=== PATIENT | male | born 1975 | race African-American/Black ===

== ENCOUNTER 2016-04-28 21:50 | Inpatient (IN) | payer OTHER, BC ==
[~2016-04-28] VITALS: Ht 177.8 cm; Wt 123.0 kg
[2016-04-28] MEDS ORDERED: PROPOFOL 1000 MG/100 ML INJ 100 ML ONE (21:58)
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
[2016-04-28] MEDS ORDERED: IOHEXOL 350 MG/ML 10 ML VIAL (for RAD DIAG) IV ONE (22:20)
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
[2016-04-28 22:28] LABS: I-STAT POTASSIUM 4.1 MMOL/L (3.5-4.9)
[2016-04-28 22:29] LABS: AUTOMATED NEUTROPHIL # 2.2 TH/MM3 (1.8-7.7); BASOPHIL % 0.4 % (0.0-2.0); EOSINOPHIL # 0.3 TH/MM3 (0-0.4); EOSINOPHIL % 3.6 % (0.0-4.0); HEMATOCRIT 40.7 % (39.0-51.0); LYMPH % 60.6 % (9.0-44.0); LYMPHOCYTE # 4.8 TH/MM3 (1.0-4.8); MEAN CELL VOLUME 83.6 FL (80.0-100.0); MEAN CORPUSCULAR HEMOGLOBIN 28.2 PG (27.0-34.0); MEAN CORPUSCULAR HGB CONC 33.7 % (32.0-36.0); NEUT % 28.4 % (16.0-70.0); PLATELET COUNT 376 TH/MM3 (150-450); RED BLOOD COUNT 4.86 MIL/MM3 (4.50-5.90); RED CELL DISTRIBUTION WIDTH 14.9 % (11.6-17.2); WHITE BLOOD COUNT 7.9 TH/MM3 (4.0-11.0)
[2016-04-28 22:30] LABS: HEMO FLAGS AUTO DIFF
[2016-04-28 22:35] VITALS: O2SAT 100
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
[2016-04-28 22:45] VITALS: BP 139/87; PULSE 114; RESP 16; TEMP 98.5; O2SAT 100
[2016-04-28] MEDS ORDERED: CHLORHEXIDINE GLUCONATE 2 % 1 PACK (2 CLOTHS) TOP PRN (22:45)
[2016-04-28] MEDS ORDERED: ETOMIDATE 20 MG/10 ML VIAL ONE (22:45)
[2016-04-28] MEDS ORDERED: MISCELLANEOUS NURSING INFORMATION XX SCH (22:45)
[2016-04-28] MEDS ORDERED: ROCURONIUM INJ 50 MG/5 ML VIAL ONE (22:45)
[2016-04-28] MEDS ORDERED: SODIUM CHLORIDE 0.9% FLUSH 5 ML FLUSH IV FLUSH PRN (22:45)
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
[2016-04-28 22:46] LABS: APTT (PATIENT) 25.4 SEC (24.3-30.1); PROTHROMBIN TIME - PATIENT 10.6 SEC (9.8-11.6)
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
[2016-04-28] MEDS: PROPOFOL 1000 MG/100 ML INJ 100 ML IV SCH (23:15)
[2016-04-28] MEDS: fentaNYL DRIP 250 ML IV SCH (23:15)
[2016-04-28] MEDS: SODIUM CHLORIDE 0.9% FLUSH 5 ML FLUSH IV FLUSH SCH (23:16)
[2016-04-28] MEDS: SODIUM CHLOR 0.9% 1000 ML INJ 1,000 ML IV SCH (23:16)
[2016-04-28] MEDS: levETIRAcetam INJ 500 MG in SODIUM CHLORIDE 0.9% INJ 100 ML IV SCH (23:30)
[2016-04-28 23:37] LABS: PLATELET ESTIMATE SMEAR NORMAL (NORMAL); PLATELET MORPHOLOGY NORMAL (NORMAL); SCAN/DIFF AUTO DIFF CONFIRMED
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
[2016-04-28 23:51] LABS: BLOOD GAS CARBOXYHEMOGLOBIN 1.1 % (0-4); BLOOD GAS HCO3 21 mmol/L (22-26); BLOOD GAS METHEMOGLOBIN 1.1 % (0-2); BLOOD GAS O2 HGB SATURATION 95 % (90-100); BLOOD GAS OXYGEN CONTENT 16.9 Vol % (12.0-20.0); BLOOD GAS PCO2 41 mmHg (38-42); BLOOD GAS PO2 105 mmHg (61-120); BLOOD GAS TOTAL HGB 12.5 G/DL (12.0-16.0); TEMP CORR TO 98.6
[2016-04-28 23:53] LABS: CRITICAL VALUE NO; OXYGEN DEVICE VENTILATOR
[2016-04-28 23:54] LABS: DRAW SITE RT RADIAL; FIO2 50 %; NUMBER OF ARTERIAL PUNCTURES 1
[2016-04-28 23:55] LABS: STAT NO; ULNAR PULSE PRESENT
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
[2016-04-29] VITALS (18 sets, daily range): BP systolic 79–126; BP diastolic 51–78; PULSE 68–102; RESP 16–22; TEMP 97.8–99; O2SAT 97–100
--- NOTE | 2016-04-29 00:49 | PD.OP ---
Operative Report Date of Surgery: Apr 29, 2016 Preoperative Diagnosis: (1) Head injury Postoperative Diagnosis: (1) Head injury Procedure: Left frontal twist drill for intracranial pressure monitor placement Anesthesia: Intravenous sedation. Local anesthetic 1% Xylocaine without epinephrine Surgeon: Mitch Chavez [employer] Analyst(s): None Operation and Findings: The procedure was performed in the surgical intensive care unit. No family available to discuss findings and treatment plans. The procedures considered medically necessary on an urgent basis. Appropriate time-out procedure was performed with all personnel present and in agreement The patient was given intravenous sedation during the procedure. The head of the bed was elevated 20 with the head and neck in neutral position. Due to CT scan findings indicated major area of contusion and subarachnoid hemorrhage over the left frontoparietal region, the ICP monitor was placed on the left side. The left frontal area was shaved with clippers and sterilely prepped and draped. 1% Xylocaine with epinephrine was used for local infiltration over the small incision site which was made in the left frontal region approximately 1 cm anterior to the coronal suture in the mid pupillary line and carried sharply down to the cranium. The hand drill was used to place a single twist drill opening in the cranium and the dura was perforated with the 18-gauge spinal needle. The ICP bolt was secured to the cranium. The transducer was zeroed and placed intracranially and secured to the bolt. The patient's initial ICP was 10-12 mm water with good waveform. A sterile dressing was applied There is no significant bleeding The patient's neurologic exam remained stable following the procedure. Mitch Chavez MD Apr 29, 2016 00:49
[2016-04-29] MEDS ORDERED: NOREPINEPHRINE 4 MG/4 ML AMP ONE (00:52)
[2016-04-29] MEDS ORDERED: SODIUM CHLOR 0.9% 1000 ML INJ 2,000 ML IV ONE (01:00)
[2016-04-29] MEDS ORDERED: TERBUTALINE INJ 1 MG/ML AMP SQ PRN (01:00)
[2016-04-29 01:13] LABS: HEMATOCRIT 35.8 % (39.0-51.0); MEAN CELL VOLUME 84.2 FL (80.0-100.0); MEAN CORPUSCULAR HEMOGLOBIN 27.4 PG (27.0-34.0); MEAN CORPUSCULAR HGB CONC 32.6 % (32.0-36.0); PLATELET COUNT 282 TH/MM3 (150-450); RED BLOOD COUNT 4.25 MIL/MM3 (4.50-5.90); RED CELL DISTRIBUTION WIDTH 14.7 % (11.6-17.2); REVIEW FLAG FINAL; WHITE BLOOD COUNT 8.9 TH/MM3 (4.0-11.0)
[2016-04-29] MEDS: PROPOFOL 1000 MG/100 ML INJ 100 ML IV SCH ×7 (01:40→22:04)
[2016-04-29 01:56] LABS: ALT (GPT) 26 U/L (12-78); ANION GAP 10 MEQ/L (5-15); AST (GOT) 19 U/L (15-37); BICARBONATE 23.8 MEQ/L (21.0-32.0); BLOOD UREA NITROGEN 12 MG/DL (7-18); CHLORIDE 111 MEQ/L (98-107); GLOMERULAR FILTRATION RATE 68 ML/MIN (>89); SODIUM (NA) 145 MEQ/L (136-145)
[2016-04-29 01:59] LABS: ALKALINE PHOSPHATASE 37 U/L (45-117); TOTAL BILIRUBIN ADULT 0.4 MG/DL (0.2-1.0)
[2016-04-29] MEDS: CHLORHEXIDINE GLUCONATE 2 % 1 PACK (2 CLOTHS) TOP SCH (04:00)
[2016-04-29 06:26] LABS: AUTOMATED NEUTROPHIL # 8.1 TH/MM3 (1.8-7.7); BASOPHIL % 0.2 % (0.0-2.0); EOSINOPHIL # 0.1 TH/MM3 (0-0.4); EOSINOPHIL % 1.2 % (0.0-4.0); HEMATOCRIT 40.6 % (39.0-51.0); HEMO FLAGS DIFF FINAL; LYMPH % 14.3 % (9.0-44.0); LYMPHOCYTE # 1.5 TH/MM3 (1.0-4.8); MEAN CELL VOLUME 85.4 FL (80.0-100.0); MEAN CORPUSCULAR HEMOGLOBIN 28.1 PG (27.0-34.0); MEAN CORPUSCULAR HGB CONC 32.9 % (32.0-36.0); NEUT % 77.3 % (16.0-70.0); PLATELET COUNT 266 TH/MM3 (150-450); RED BLOOD COUNT 4.76 MIL/MM3 (4.50-5.90); RED CELL DISTRIBUTION WIDTH 14.8 % (11.6-17.2); WHITE BLOOD COUNT 10.5 TH/MM3 (4.0-11.0)
[2016-04-29] MEDS ORDERED: 3% SALINE INJ 500 ML IV ONE (06:30)
[2016-04-29] MEDS ORDERED: MIDAZOLAM HCL 5 MG/ML VIAL (1 ML) IM ONE (06:30)
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
[2016-04-29 06:43] LABS: BICARBONATE 23.9 MEQ/L (21.0-32.0); POTASSIUM 4.3 MEQ/L (3.5-5.1)
[2016-04-29] MEDS: MIDAZOLAM 100 MG/ML INJ 100 ML IV SCH ×3 (06:45→22:04)
[2016-04-29] MEDS: fentaNYL DRIP 250 ML IV SCH ×3 (06:45→22:05)
[2016-04-29] MEDS: MAGNESIUM SULFATE 1 GM PREMIX 100 ML IV SCH ×2 (06:45→08:36)
[2016-04-29] MEDS ORDERED: POTASSIUM CHLOR 40 MEQ PREMIX 100 ML IV PRN (07:00)
[2016-04-29] MEDS ORDERED: POTASSIUM PHOSPHATE MONOBASIC 500 MG TAB PO/TUBE PRN (07:00)
[2016-04-29] MEDS ORDERED: MAGNESIUM OXIDE 400 MG TAB PO PRN (07:00)
[2016-04-29] MEDS ORDERED: POTASSIUM CHLOR 20 MEQ PREMIX 100 ML IV PRN (07:00)
[2016-04-29] MEDS ORDERED: MAGNESIUM SULFATE INJ 4 GM in SODIUM CHLORIDE 0.9% INJ 92 ML IV PRN (07:00)
[2016-04-29] MEDS ORDERED: POTASSIUM PHOSPHATE MONOBASIC 500 MG TAB PO PRN (07:00)
[2016-04-29] MEDS ORDERED: MAGNESIUM SULFATE INJ 2 GM in SODIUM CHLORIDE 0.9% INJ 96 ML IV PRN (07:00)
[2016-04-29] MEDS ORDERED: RESP: ALBUTEROL 2.5 MG/IPRATROPIUM 0.5 MG NEB (PRN) NEB (07:00)
--- NOTE | 2016-04-29 07:24 | RADRPT ---
EXAM DATE/TIME: 04/29/2016 04:30 [facility] COMPARISON: CHEST SINGLE AP, April 28, 2016, 21:44. INDICATIONS : Shortness of breath. MEDICAL HISTORY : None. SURGICAL HISTORY : None. ENCOUNTER: Subsequent ACUITY: 2 days PAIN SCORE: Non-responsive. LOCATION: Bilateral chest FINDINGS: A single view of the chest demonstrates endotracheal tube in satisfactory position. NG overlies dista l stomach. Mild basilar airspace disease similar to April 28. CONCLUSION: 1. Endotracheal tube and nasogastric tube in satisfactory position. Mild basilar airspace disease. Heath Awan MD on April 29, 2016 at 7:22 Board Certified Radiologist. This report was verified electronically.
[2016-04-29] MEDS: CHLORHEXIDINE 0.12% (ORAL KIT) 15 ML CUP MT SCH ×2 (08:00→20:44)
--- NOTE | 2016-04-29 08:00 | PD.PROCEDR ---
Procedure Note Procedure DX: Traumatic Brain Injury OP: 1. Insertion Left Subclavian Central Venous Line (06988) 2. Insertion Left radial artery line (47804) Procedure: With HOB elevated, left chest prepped and draped. Left subclavian vein cannulated and wire advanced. Catheter passed over wire to 19 cm. Lumens aspirated and flushed. Dressing applied. CXR ordered, will review. Merlin test normal left hand. Let wrist supinated, prepped and draped. Left radial artery cannulated with 20 gauge needle and wire easily advanced. Cannula passed over wire to 3 cm. Good waveform observed. Dressing applied. Circulation to left hand intact after procedure. Gigi Han MD Apr 29, 2016 08:00
[2016-04-29] MEDS: SODIUM CHLOR 0.9% 1000 ML INJ 1,000 ML IV SCH (08:32)
[2016-04-29] MEDS: PANTOPRAZOLE SODIUM 40 MG VIAL IV SCH (08:36)
[2016-04-29] MEDS: SODIUM CHLORIDE 0.9% FLUSH 5 ML FLUSH IV FLUSH SCH ×2 (08:36→20:44)
[2016-04-29] MEDS: DOCUSATE SODIUM 50 MG/SENNA 8.6 MG TAB PO SCH ×2 (08:36→20:43)
[2016-04-29] MEDS: levETIRAcetam INJ 500 MG in SODIUM CHLORIDE 0.9% INJ 100 ML IV SCH ×2 (08:36→20:44)
[2016-04-29] MEDS: LACTULOSE SYRUP 20 GM/30 ML CUP PO SCH (08:36)
--- NOTE | 2016-04-29 08:39 | RADRPT ---
EXAM DATE/TIME: 04/29/2016 07:52 [facility] COMPARISON: CHEST SINGLE AP, April 29, 2016, 4:30. INDICATIONS : Central line placement MEDICAL HISTORY : None. SURGICAL HISTORY : None. ENCOUNTER: Initial ACUITY: 1 day PAIN SCORE: Non-responsive. LOCATION: Bilateral chest FINDINGS: Left central line tip in superior vena cava. Endotracheal tube in satisfactory position. NG overlies distal stomach. Mild basilar airspace disease similar to exam from earlier today. CONCLUSION: 1. Placement of left central line in superior vena cava without pneumothorax. Heath Awan MD on April 29, 2016 at 8:36 Board Certified Radiologist. This report was verified electronically.
[2016-04-29 08:59] LABS: BLOOD GAS BASE EXCESS -0.5 mmol/L (-2-2); BLOOD GAS HCO3 24 mmol/L (22-26); BLOOD GAS METHEMOGLOBIN 1.1 % (0-2); BLOOD GAS O2 HGB SATURATION 96 % (90-100); BLOOD GAS OXYGEN CONTENT 15.4 Vol % (12.0-20.0); BLOOD GAS PCO2 39 mmHg (38-42); BLOOD GAS PO2 97 mmHg (61-120); BLOOD GAS TOTAL HGB 11.4 G/DL (12.0-16.0); CRITICAL VALUE NO; OXYGEN DEVICE VENTILATOR; TEMP CORR TO 98.6
[2016-04-29 09:00] LABS: DRAW SITE ART LINE; FIO2 30 %; STAT YES; ULNAR PULSE PRESENT; VENT SETTINGS PRVC 16/550/5+/1.0
[2016-04-29] MEDS ORDERED: LACTULOSE SYRUP 20 GM/30 ML CUP PO SCH (09:00)
--- NOTE | 2016-04-29 10:29 | RADRPT ---
EXAM DATE/TIME: 04/29/2016 10:09 [facility] COMPARISON: CT BRAIN W/O CONTRAST, April 28, 2016, 22:14. INDICATIONS : Follow-up for intracranial hemorrhage. RADIATION DOSE: 65.53 CTDIvol (mGy) MEDICAL HISTORY : None SURGICAL HISTORY : Craniotomy. ENCOUNTER: Initial ACUITY: 1 day PAIN SCALE: Non-responsive LOCATION: cranial TECHNIQUE: Multiple contiguous axial images were obtained of the head. Using automated exposure control and adj ustment of the mA and/or kV according to patient size, radiation dose was kept as low as reasonably a chievable to obtain optimal diagnostic quality images. FINDINGS: Today's exam is compared to the prior study. There is a pressure monitor in the left frontal lobe. Th e ventricles remain normal in size and midline in position. There continue to be multiple hemorrhagic contusions involving the frontal lobes and left temporal lobe without significant change compared to the earlier exam. There is stable subarachnoid hemorrhage predominantly on the left side. No signifi cant mass effect or midline shift is demonstrated. The posterior fossa stable and unremarkable. There is a stable punctate hemorrhagic contusion on the right cerebral vertex. CONCLUSION: 1. Left-sided pressure monitor in place. 2. No significant change compared to the prior examination. Sean Vu MD on April 29, 2016 at 10:25 Board Certified Radiologist. This report was verified electronically.
[2016-04-29] MEDS: RESP: ALBUTEROL 2.5 MG/IPRATROPIUM 0.5 MG NEB (SCH) NEB ×3 (10:48→20:38)
[2016-04-29 12:03] LABS: BLOOD GAS BASE EXCESS -0.4 mmol/L (-2-2); BLOOD GAS CARBOXYHEMOGLOBIN 0.9 % (0-4); BLOOD GAS HCO3 25 mmol/L (22-26); BLOOD GAS O2 HGB SATURATION 94 % (90-100); BLOOD GAS OXYGEN CONTENT 15.4 Vol % (12.0-20.0); BLOOD GAS PCO2 46 mmHg (38-42); BLOOD GAS PO2 83 mmHg (61-120); BLOOD GAS TOTAL HGB 11.6 G/DL (12.0-16.0); CRITICAL VALUE NO; OXYGEN DEVICE VENTILATOR; TEMP CORR TO 98.6
[2016-04-29 12:04] LABS: DRAW SITE ART LINE; FIO2 30 %; STAT NO; ULNAR PULSE PRESENT; VENT SETTINGS PRVC/AC
[2016-04-29] MEDS: NOREPINEPHRINE INJ 4 MG in SODIUM CHLOR 0.9% 250 ML INJ 246 ML IV SCH ×3 (13:19→22:05)
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
[2016-04-29 17:29] LABS: MAGNESIUM 2.4 MG/DL (1.5-2.5)
[2016-04-29] MEDS: SODIUM PHOSPHATE INJ 30 MMOL in SODIUM CHLOR 0.9% 250 ML INJ 240 ML IV PRN (18:36)
[2016-04-30] VITALS (20 sets, daily range): BP systolic 115–138; BP diastolic 73–92; PULSE 67–87; RESP 22; TEMP 94.3–97.7; O2SAT 98–100
[2016-04-30] MEDS: PROPOFOL 1000 MG/100 ML INJ 100 ML IV SCH ×8 (01:08→22:28)
[2016-04-30] MEDS: RESP: ALBUTEROL 2.5 MG/IPRATROPIUM 0.5 MG NEB (SCH) NEB ×4 (03:51→21:25)
[2016-04-30] MEDS: CHLORHEXIDINE GLUCONATE 2 % 1 PACK (2 CLOTHS) TOP SCH (04:18)
[2016-04-30] MEDS: SODIUM CHLOR 0.9% 1000 ML INJ 1,000 ML IV SCH ×2 (04:19→22:30)
[2016-04-30 04:24] LABS: AUTOMATED NEUTROPHIL # 3.3 TH/MM3 (1.8-7.7); BASOPHIL % 0.3 % (0.0-2.0); EOSINOPHIL # 0.7 TH/MM3 (0-0.4); EOSINOPHIL % 11.8 % (0.0-4.0); HEMATOCRIT 32.8 % (39.0-51.0); HEMO FLAGS DIFF FINAL; LYMPH % 20.7 % (9.0-44.0); LYMPHOCYTE # 1.2 TH/MM3 (1.0-4.8); MEAN CELL VOLUME 82.6 FL (80.0-100.0); MEAN CORPUSCULAR HEMOGLOBIN 27.8 PG (27.0-34.0); MEAN CORPUSCULAR HGB CONC 33.7 % (32.0-36.0); MONO % 8.8 % (0.0-8.0); NEUT % 58.4 % (16.0-70.0); PLATELET COUNT 199 TH/MM3 (150-450); RED BLOOD COUNT 3.97 MIL/MM3 (4.50-5.90); RED CELL DISTRIBUTION WIDTH 14.8 % (11.6-17.2); WHITE BLOOD COUNT 5.6 TH/MM3 (4.0-11.0)
[2016-04-30 05:03] LABS: ALT (GPT) 22 U/L (12-78); ANION GAP 9 MEQ/L (5-15); AST (GOT) 22 U/L (15-37); BICARBONATE 23.4 MEQ/L (21.0-32.0); BLOOD UREA NITROGEN 8 MG/DL (7-18); CHLORIDE 114 MEQ/L (98-107); GLOMERULAR FILTRATION RATE 104 ML/MIN (>89); MAGNESIUM 2.3 MG/DL (1.5-2.5); POTASSIUM 3.3 MEQ/L (3.5-5.1); SODIUM (NA) 146 MEQ/L (136-145)
[2016-04-30 05:05] LABS: ALKALINE PHOSPHATASE 60 U/L (45-117); TOTAL BILIRUBIN ADULT 0.5 MG/DL (0.2-1.0)
--- NOTE | 2016-04-30 06:16 | RADRPT ---
EXAM DATE/TIME: 04/30/2016 04:51 [facility] COMPARISON: CHEST SINGLE AP, April 29, 2016, 7:52. INDICATIONS : Shortness of breath. MEDICAL HISTORY : None. SURGICAL HISTORY : None. ENCOUNTER: Subsequent ACUITY: 3 days PAIN SCORE: Non-responsive. LOCATION: Bilateral chest FINDINGS: Endotracheal tube tip in satisfactory position. NG enters stomach. Left central line in superior vena cava. Bilateral mostly basilar airspace disease similar to April 29. No significant effusion. No pne umothorax. CONCLUSION: 1. Support apparatus in satisfactory position. Mild basilar airspace disease similar to prior examina tion. Heath Awan MD on April 30, 2016 at 6:14 Board Certified Radiologist. This report was verified electronically.
[2016-04-30] MEDS: CHLORHEXIDINE 0.12% (ORAL KIT) 15 ML CUP MT SCH ×2 (08:00→20:23)
[2016-04-30] MEDS: DOCUSATE SODIUM 50 MG/SENNA 8.6 MG TAB PO SCH ×2 (09:00→20:23)
[2016-04-30] MEDS: LACTULOSE SYRUP 20 GM/30 ML CUP PO SCH (09:00)
[2016-04-30] MEDS: SODIUM CHLORIDE 0.9% FLUSH 5 ML FLUSH IV FLUSH SCH ×2 (09:00→20:23)
[2016-04-30] MEDS: PANTOPRAZOLE SODIUM 40 MG VIAL IV SCH (09:04)
[2016-04-30] MEDS: levETIRAcetam INJ 500 MG in SODIUM CHLORIDE 0.9% INJ 100 ML IV SCH ×2 (09:04→20:23)
[2016-04-30] MEDS: fentaNYL DRIP 250 ML IV SCH ×3 (09:05→22:29)
[2016-04-30] MEDS: POTASSIUM PHOSPHATE INJ 30 MMOL in SODIUM CHLOR 0.9% 250 ML INJ 250 ML IV PRN (09:32)
[2016-04-30] MEDS: POTASSIUM CHLOR 20 MEQ PREMIX 100 ML IV PRN (09:35)
[2016-04-30] MEDS: MIDAZOLAM 100 MG/ML INJ 100 ML IV SCH ×2 (10:22→20:23)
[2016-04-30 11:54] LABS: BLOOD GAS BASE EXCESS -2.3 mmol/L (-2-2); BLOOD GAS CARBOXYHEMOGLOBIN 1.1 % (0-4); BLOOD GAS HCO3 21 mmol/L (22-26); BLOOD GAS O2 HGB SATURATION 96 % (90-100); BLOOD GAS OXYGEN CONTENT 14.8 Vol % (12.0-20.0); BLOOD GAS PCO2 33 mmHg (38-42); BLOOD GAS PO2 95 mmHg (61-120); CRITICAL VALUE NO; OXYGEN DEVICE VENTILATOR; TEMP CORR TO 98.6
[2016-04-30 11:55] LABS: DRAW SITE ART LINE; FIO2 30 %; STAT NO
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
[2016-04-30 16:30] LABS: POTASSIUM 3.9 MEQ/L (3.5-5.1)
[2016-04-30] MEDS: NOREPINEPHRINE INJ 4 MG in SODIUM CHLOR 0.9% 250 ML INJ 246 ML IV SCH (20:52)
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
[2016-05-01] VITALS (18 sets, daily range): BP systolic 113–133; BP diastolic 67–82; PULSE 77–94; RESP 20–22; TEMP 95.9–99.1; O2SAT 97–99
[2016-05-01] MEDS: PROPOFOL 1000 MG/100 ML INJ 100 ML IV SCH ×8 (03:14→22:27)
[2016-05-01] MEDS: CHLORHEXIDINE GLUCONATE 2 % 1 PACK (2 CLOTHS) TOP SCH (03:14)
[2016-05-01] MEDS: RESP: ALBUTEROL 2.5 MG/IPRATROPIUM 0.5 MG NEB (SCH) NEB ×4 (03:21→20:26)
[2016-05-01 04:16] LABS: AUTOMATED NEUTROPHIL # 4.1 TH/MM3 (1.8-7.7); BASOPHIL # 0.1 TH/MM3 (0-0.2); BASOPHIL % 0.8 % (0.0-2.0); EOSINOPHIL # 0.7 TH/MM3 (0-0.4); EOSINOPHIL % 11.7 % (0.0-4.0); HEMATOCRIT 33.4 % (39.0-51.0); HEMO FLAGS DIFF FINAL; LYMPH % 15.3 % (9.0-44.0); MEAN CELL VOLUME 82.9 FL (80.0-100.0); MEAN CORPUSCULAR HEMOGLOBIN 27.8 PG (27.0-34.0); MEAN CORPUSCULAR HGB CONC 33.5 % (32.0-36.0); MONO % 7.6 % (0.0-8.0); NEUT % 64.6 % (16.0-70.0); PLATELET COUNT 196 TH/MM3 (150-450); RED BLOOD COUNT 4.02 MIL/MM3 (4.50-5.90); RED CELL DISTRIBUTION WIDTH 15.1 % (11.6-17.2); WHITE BLOOD COUNT 6.4 TH/MM3 (4.0-11.0)
[2016-05-01] MEDS: MIDAZOLAM 100 MG/ML INJ 100 ML IV SCH ×3 (04:21→23:46)
[2016-05-01 04:40] LABS: ALT (GPT) 20 U/L (12-78); ANION GAP 9 MEQ/L (5-15); AST (GOT) 16 U/L (15-37); BICARBONATE 22.9 MEQ/L (21.0-32.0); BLOOD UREA NITROGEN 5 MG/DL (7-18); CHLORIDE 117 MEQ/L (98-107); GLOMERULAR FILTRATION RATE 79 ML/MIN (>89); MAGNESIUM 2.3 MG/DL (1.5-2.5); POTASSIUM 3.8 MEQ/L (3.5-5.1); SODIUM (NA) 149 MEQ/L (136-145)
[2016-05-01 04:42] LABS: ALKALINE PHOSPHATASE 42 U/L (45-117); TOTAL BILIRUBIN ADULT 0.4 MG/DL (0.2-1.0)
[2016-05-01 04:47] LABS: BLOOD GAS BASE EXCESS -2.9 mmol/L (-2-2); BLOOD GAS CARBOXYHEMOGLOBIN 0.9 % (0-4); BLOOD GAS HCO3 21 mmol/L (22-26); BLOOD GAS O2 HGB SATURATION 96 % (90-100); BLOOD GAS OXYGEN CONTENT 15.3 Vol % (12.0-20.0); BLOOD GAS PO2 92 mmHg (61-120); BLOOD GAS TOTAL HGB 11.3 G/DL (12.0-16.0); CRITICAL VALUE NO; OXYGEN DEVICE VENTILATOR; TEMP CORR TO 98.6
[2016-05-01 04:48] LABS: BLOOD GAS PCO2 33 mmHg (38-42); DRAW SITE ART LINE; FIO2 30 %; VENT SETTINGS PRVC/AC
[2016-05-01 04:49] LABS: STAT NO
[2016-05-01] MEDS: NOREPINEPHRINE INJ 4 MG in SODIUM CHLOR 0.9% 250 ML INJ 246 ML IV SCH ×2 (05:04→15:38)
--- NOTE | 2016-05-01 05:16 | RADRPT ---
EXAM DATE/TIME: 05/01/2016 04:19 [facility] COMPARISON: CHEST SINGLE AP, April 30, 2016, 4:51. INDICATIONS : Shortness of breath. MEDICAL HISTORY : None. SURGICAL HISTORY : None. ENCOUNTER: Subsequent ACUITY: 4 - 6 days PAIN SCORE: Non-responsive. LOCATION: Bilateral chest FINDINGS: The lungs are clear. Left subclavian central venous catheter and endotracheal tube noted. NG tube cou rses beneath the diaphragm. EKG leads are present. Osseous structures are intact. CONCLUSION: Clear lungs. Onesimo Jackson MD on May 01, 2016 at 5:14 Board Certified Radiologist. This report was verified electronically.
[2016-05-01] MEDS: 3% SALINE INJ 500 ML IV SCH ×2 (05:21→23:47)
[2016-05-01] MEDS: SODIUM PHOSPHATE INJ 30 MMOL in SODIUM CHLOR 0.9% 250 ML INJ 240 ML IV PRN (05:46)
[2016-05-01] MEDS ORDERED: SODIUM CHLORIDE 23.4% INJ 240 MEQ in SYRINGE/BAG 1 EA IV ONE (07:00)
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
[2016-05-01] MEDS: CHLORHEXIDINE 0.12% (ORAL KIT) 15 ML CUP MT SCH ×2 (08:00→19:42)
[2016-05-01] MEDS: PANTOPRAZOLE SODIUM 40 MG VIAL IV SCH (08:32)
[2016-05-01] MEDS: DOCUSATE SODIUM 50 MG/SENNA 8.6 MG TAB PO SCH ×2 (08:32→20:05)
[2016-05-01] MEDS: SODIUM CHLORIDE 0.9% FLUSH 5 ML FLUSH IV FLUSH SCH ×2 (08:32→20:05)
[2016-05-01] MEDS: LACTULOSE SYRUP 20 GM/30 ML CUP PO SCH (08:32)
[2016-05-01] MEDS: levETIRAcetam INJ 500 MG in SODIUM CHLORIDE 0.9% INJ 100 ML IV SCH ×2 (08:32→20:05)
[2016-05-01] MEDS: BISACODYL 10 MG SUPP RECTAL SCH (08:33)
[2016-05-01] MEDS: fentaNYL DRIP 250 ML IV SCH ×2 (11:22→23:10)
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
[2016-05-01] MEDS: SODIUM CHLOR 0.9% 1000 ML INJ 1,000 ML IV SCH (17:42)
--- NOTE | 2016-05-01 18:25 | MG ---
cc: ADARSH COLEMAN MD Lab No: Date: 05/01/2016 Age: Sex: M Race: EEG NUMBER [id number] On Diprivan, versed, fentanyl. Apparently a subarachnoid hemorrhage, high intracranial pressure. Left side pressure monitor. DESCRIPTION Suppression followed by bursts of 3-4 Hz activity, 20-50 microvolts occurring every 3-10 seconds. Single lead EKG showing sinus rhythm. No driving with photic stimulation. INTERPRETATION Burst suppression type pattern, bursts do not look epileptiform. Clinical correlation. Adarsh Coleman MD MG/KK /5:18 PM /6:21 PM
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
[2016-05-02] VITALS (19 sets, daily range): BP systolic 102–135; BP diastolic 72–87; PULSE 79–101; RESP 20–24; TEMP 96.4–100.4; O2SAT 97–100
[2016-05-02] MEDS: PROPOFOL 1000 MG/100 ML INJ 100 ML IV SCH ×6 (01:37→23:48)
[2016-05-02] MEDS: RESP: ALBUTEROL 2.5 MG/IPRATROPIUM 0.5 MG NEB (SCH) NEB ×4 (03:08→19:36)
[2016-05-02] MEDS: CHLORHEXIDINE GLUCONATE 2 % 1 PACK (2 CLOTHS) TOP SCH (03:25)
[2016-05-02] MEDS ORDERED: EPINEPHrine HCL (1:10,000) 1 MG/10 ML SYRINGE ONE (04:04)
[2016-05-02] MEDS ORDERED: ATROPINE SULFATE 1 MG/10 ML SYRINGE ONE (04:04)
[2016-05-02] MEDS ORDERED: LIDOCAINE HCL 2% 100 MG/5 ML SYRINGE ONE (04:05)
[2016-05-02 04:15] LABS: AUTOMATED NEUTROPHIL # 4.1 TH/MM3 (1.8-7.7); BASOPHIL % 0.5 % (0.0-2.0); EOSINOPHIL # 0.8 TH/MM3 (0-0.4); EOSINOPHIL % 12.8 % (0.0-4.0); HEMATOCRIT 32.8 % (39.0-51.0); HEMO FLAGS DIFF FINAL; LYMPH % 15.6 % (9.0-44.0); MEAN CORPUSCULAR HEMOGLOBIN 27.7 PG (27.0-34.0); MONO % 7.2 % (0.0-8.0); NEUT % 63.9 % (16.0-70.0); PLATELET COUNT 180 TH/MM3 (150-450); RED BLOOD COUNT 3.91 MIL/MM3 (4.50-5.90); RED CELL DISTRIBUTION WIDTH 15.4 % (11.6-17.2); WHITE BLOOD COUNT 6.5 TH/MM3 (4.0-11.0)
[2016-05-02 04:44] LABS: ALT (GPT) 19 U/L (12-78); ANION GAP 7 MEQ/L (5-15); AST (GOT) 17 U/L (15-37); BICARBONATE 23.9 MEQ/L (21.0-32.0); BLOOD UREA NITROGEN 4 MG/DL (7-18); CHLORIDE 123 MEQ/L (98-107); GLOMERULAR FILTRATION RATE 88 ML/MIN (>89); MAGNESIUM 2.2 MG/DL (1.5-2.5); POTASSIUM 3.7 MEQ/L (3.5-5.1); SODIUM (NA) 154 MEQ/L (136-145)
[2016-05-02 04:46] LABS: ALKALINE PHOSPHATASE 45 U/L (45-117); TOTAL BILIRUBIN ADULT 0.4 MG/DL (0.2-1.0)
--- NOTE | 2016-05-02 05:43 | RADRPT ---
EXAM DATE/TIME: 05/02/2016 05:15 [facility] COMPARISON: No previous studies available for comparison. INDICATIONS : Follow up hemorrhage. RADIATION DOSE: 69.15 CTDIvol (mGy) MEDICAL HISTORY : None SURGICAL HISTORY : Craniotomy. ENCOUNTER: Subsequent ACUITY: 3 days PAIN SCALE: Non-responsive LOCATION: cranial TECHNIQUE: Multiple contiguous axial images were obtained of the head. Using automated exposure control and adj ustment of the mA and/or kV according to patient size, radiation dose was kept as low as reasonably a chievable to obtain optimal diagnostic quality images. FINDINGS: The patient is status post left frontal ICP monitor placement as before. There is a nondisplaced frac ture of the right temporal bone and posterior frontal bone. There is opacification of the middle ear and mastoid air cells on the right. Fracture lucency is also seen extending into the right temporoman dibular joint. Air-fluid level in the sphenoid sinus, maxillary sinuses and ethmoid air cells with mu cosal thickening noted. There is a small rounded foci parenchymal bleed in the right frontal vertex a nd subarachnoid hemorrhage is again seen left greater than right. There is sulcal effacement on the l eft and in the new area of low density in the left frontal and temporal regions characteristic of eduardo lving infarction. There is mild effacement of the left lateral ventricle and third ventricle as befor e with left to right shift of 3.6 mm. There are several foci of parenchymal hemorrhage in the left fr ontal and temporal regions as before. CONCLUSION: 1. Evolving left cerebral infarction as described above with multiple petechial hemorrhages seen as w ell as subarachnoid hemorrhage. 2. Skull fracture. Onesimo Jackson MD on May 02, 2016 at 5:39 Board Certified Radiologist. This report was verified electronically.
--- NOTE | 2016-05-02 05:55 | RADRPT ---
EXAM DATE/TIME: 05/02/2016 04:08 [facility] COMPARISON: CHEST SINGLE AP, May 01, 2016, 4:19. INDICATIONS : Shortness of breath. MEDICAL HISTORY : None. SURGICAL HISTORY : None. ENCOUNTER: Subsequent ACUITY: 4 - 6 days PAIN SCORE: Non-responsive. LOCATION: Bilateral chest FINDINGS: Endotracheal tube and enteric tube identified. The lungs are clear. Cardiomegaly. Osseous structures are intact. Left subclavian line. CONCLUSION: Clear lungs. Onesimo Jackson MD on May 02, 2016 at 5:53 Board Certified Radiologist. This report was verified electronically.
[2016-05-02 06:14] LABS: BLOOD GAS BASE EXCESS -1.5 mmol/L (-2-2); BLOOD GAS CARBOXYHEMOGLOBIN 0.9 % (0-4); BLOOD GAS HCO3 23 mmol/L (22-26); BLOOD GAS O2 HGB SATURATION 94 % (90-100); BLOOD GAS OXYGEN CONTENT 19.7 Vol % (12.0-20.0); BLOOD GAS PCO2 40 mmHg (38-42); BLOOD GAS PO2 81 mmHg (61-120); BLOOD GAS TOTAL HGB 14.9 G/DL (12.0-16.0); CRITICAL VALUE NO; OXYGEN DEVICE VENTILATOR; TEMP CORR TO 98.6
[2016-05-02 06:15] LABS: DRAW SITE RT RADIAL; FIO2 30 %; NUMBER OF ARTERIAL PUNCTURES 1; STAT NO; ULNAR PULSE PRESENT
[2016-05-02] MEDS: SODIUM CHLORIDE 0.9% FLUSH 5 ML FLUSH IV FLUSH SCH ×2 (07:44→19:29)
[2016-05-02] MEDS: LACTULOSE SYRUP 20 GM/30 ML CUP PO SCH (08:25)
[2016-05-02] MEDS: DOCUSATE SODIUM 50 MG/SENNA 8.6 MG TAB PO SCH ×2 (08:25→19:29)
[2016-05-02] MEDS: levETIRAcetam INJ 500 MG in SODIUM CHLORIDE 0.9% INJ 100 ML IV SCH ×2 (08:25→19:29)
[2016-05-02] MEDS: PANTOPRAZOLE SODIUM 40 MG VIAL IV SCH (08:25)
[2016-05-02] MEDS: BISACODYL 10 MG SUPP RECTAL SCH (08:25)
[2016-05-02] MEDS: CHLORHEXIDINE 0.12% (ORAL KIT) 15 ML CUP MT SCH ×2 (08:26→19:28)
[2016-05-02] MEDS: fentaNYL DRIP 250 ML IV SCH ×3 (08:55→21:20)
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
[2016-05-02] MEDS: MIDAZOLAM 100 MG/ML INJ 100 ML IV SCH ×2 (11:26→19:29)
[2016-05-02] MEDS: SODIUM CHLOR 0.9% 1000 ML INJ 1,000 ML IV SCH (13:11)
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
[2016-05-02] MEDS: ACETAMINOPHEN 325 MG TAB PO PRN (15:19)
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
[2016-05-03] VITALS (19 sets, daily range): BP systolic 121–140; BP diastolic 76–87; PULSE 77–112; RESP 22–24; TEMP 97.9–100.9; O2SAT 93–100
[2016-05-03] MEDS: NOREPINEPHRINE INJ 4 MG in SODIUM CHLOR 0.9% 250 ML INJ 246 ML IV SCH (00:29)
[2016-05-03] MEDS: MIDAZOLAM 100 MG/ML INJ 100 ML IV SCH ×3 (02:17→20:09)
[2016-05-03] MEDS: 3% SALINE INJ 500 ML IV SCH (02:17)
[2016-05-03] MEDS: RESP: ALBUTEROL 2.5 MG/IPRATROPIUM 0.5 MG NEB (SCH) NEB ×4 (02:53→19:22)
[2016-05-03] MEDS: SODIUM CHLOR 0.9% 1000 ML INJ 1,000 ML IV SCH (03:10)
[2016-05-03] MEDS: PROPOFOL 1000 MG/100 ML INJ 100 ML IV SCH ×6 (03:10→20:08)
[2016-05-03] MEDS: CHLORHEXIDINE GLUCONATE 2 % 1 PACK (2 CLOTHS) TOP SCH (03:10)
[2016-05-03 04:10] LABS: AUTOMATED NEUTROPHIL # 5.2 TH/MM3 (1.8-7.7); BASOPHIL # 0.1 TH/MM3 (0-0.2); BASOPHIL % 0.7 % (0.0-2.0); EOSINOPHIL # 0.7 TH/MM3 (0-0.4); EOSINOPHIL % 9.5 % (0.0-4.0); HEMATOCRIT 31.1 % (39.0-51.0); HEMO FLAGS DIFF FINAL; LYMPH % 13.4 % (9.0-44.0); MEAN CELL VOLUME 83.1 FL (80.0-100.0); MEAN CORPUSCULAR HEMOGLOBIN 27.9 PG (27.0-34.0); MEAN CORPUSCULAR HGB CONC 33.6 % (32.0-36.0); MONO % 9.5 % (0.0-8.0); NEUT % 66.9 % (16.0-70.0); PLATELET COUNT 202 TH/MM3 (150-450); RED BLOOD COUNT 3.75 MIL/MM3 (4.50-5.90); RED CELL DISTRIBUTION WIDTH 15.6 % (11.6-17.2); WHITE BLOOD COUNT 7.7 TH/MM3 (4.0-11.0)
[2016-05-03 04:41] LABS: ANION GAP 8 MEQ/L (5-15); AST (GOT) 17 U/L (15-37); BICARBONATE 23.6 MEQ/L (21.0-32.0); BLOOD UREA NITROGEN 9 MG/DL (7-18); CHLORIDE 121 MEQ/L (98-107); GLOMERULAR FILTRATION RATE 81 ML/MIN (>89); MAGNESIUM 1.9 MG/DL (1.5-2.5); POTASSIUM 3.2 MEQ/L (3.5-5.1); SODIUM (NA) 153 MEQ/L (136-145)
[2016-05-03 04:44] LABS: ALKALINE PHOSPHATASE 47 U/L (45-117); ALT (GPT) 22 U/L (12-78); TOTAL BILIRUBIN ADULT 0.3 MG/DL (0.2-1.0)
--- NOTE | 2016-05-03 04:48 | RADRPT ---
EXAM DATE/TIME: 05/03/2016 03:41 [facility] COMPARISON: CHEST SINGLE AP, May 02, 2016, 4:08. INDICATIONS : Shortness of breath. MEDICAL HISTORY : None. SURGICAL HISTORY : None. ENCOUNTER: Subsequent ACUITY: 4 - 6 days PAIN SCORE: Non-responsive. LOCATION: Bilateral chest FINDINGS: Patchy basilar airspace disease within left lower lobe. Endotracheal tube tip at the superior margin of the clavicles. Left subclavian line and enteric tubes are again seen. Right lung is clear. CONCLUSION: No significant change has occurred. Onesimo Jackson MD on May 03, 2016 at 4:46 Board Certified Radiologist. This report was verified electronically.
[2016-05-03 05:22] LABS: BLOOD GAS BASE EXCESS -2.9 mmol/L (-2-2); BLOOD GAS HCO3 21 mmol/L (22-26); BLOOD GAS O2 HGB SATURATION 95 % (90-100); BLOOD GAS PCO2 35 mmHg (38-42); BLOOD GAS PO2 88 mmHg (61-120); BLOOD GAS TOTAL HGB 14.3 G/DL (12.0-16.0); CRITICAL VALUE NO; OXYGEN DEVICE VENTILATOR; TEMP CORR TO 98.6
[2016-05-03 05:23] LABS: DRAW SITE RT RADIAL; FIO2 30 %; NUMBER OF ARTERIAL PUNCTURES 1; STAT NO; ULNAR PULSE PRESENT; VENT SETTINGS PRVC / AC /
[2016-05-03] MEDS: fentaNYL DRIP 250 ML IV SCH ×3 (06:27→20:09)
[2016-05-03] MEDS: POTASSIUM CHLOR 40 MEQ PREMIX 100 ML IV PRN ×2 (06:58→09:46)
[2016-05-03] MEDS: CHLORHEXIDINE 0.12% (ORAL KIT) 15 ML CUP MT SCH ×2 (08:00→20:09)
[2016-05-03] MEDS: DOCUSATE SODIUM 50 MG/SENNA 8.6 MG TAB PO SCH ×2 (08:38→20:09)
[2016-05-03] MEDS: LACTULOSE SYRUP 20 GM/30 ML CUP PO SCH (08:38)
[2016-05-03] MEDS: BISACODYL 10 MG SUPP RECTAL SCH (08:38)
[2016-05-03] MEDS: levETIRAcetam INJ 500 MG in SODIUM CHLORIDE 0.9% INJ 100 ML IV SCH ×2 (08:38→20:09)
[2016-05-03] MEDS: SODIUM CHLORIDE 0.9% FLUSH 5 ML FLUSH IV FLUSH SCH ×2 (08:39→20:09)
[2016-05-03] MEDS: PANTOPRAZOLE SODIUM 40 MG VIAL IV SCH (08:39)
[2016-05-03] MEDS: ACETAMINOPHEN 325 MG TAB PO PRN ×2 (11:46→20:57)
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
[2016-05-03] MEDS ORDERED: METHYLNALTREXONE BROMIDE 12 MG/0.6 ML VIAL SQ ONE (14:00)
[2016-05-03] MEDS ORDERED: MINERAL OIL LIQUID 30 ML CUP PO ONE (14:00)
[2016-05-03] MEDS ORDERED: POLYETHYLENE GLYCOL 17 GM PKG PO ONE (14:00)
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
[2016-05-03 15:05] LABS: BLOOD GAS BASE EXCESS -3.3 mmol/L (-2-2); BLOOD GAS CARBOXYHEMOGLOBIN 1.1 % (0-4); BLOOD GAS HCO3 21 mmol/L (22-26); BLOOD GAS METHEMOGLOBIN 0.9 % (0-2); BLOOD GAS O2 HGB SATURATION 93 % (90-100); BLOOD GAS OXYGEN CONTENT 14.2 Vol % (12.0-20.0); BLOOD GAS PCO2 36 mmHg (38-42); BLOOD GAS PO2 76 mmHg (61-120); BLOOD GAS TOTAL HGB 10.8 G/DL (12.0-16.0); CRITICAL VALUE NO; OXYGEN DEVICE VENTILATOR; TEMP CORR TO 98.6
[2016-05-03 15:06] LABS: DRAW SITE LT RADIAL; FIO2 30 %; NUMBER OF ARTERIAL PUNCTURES 1; STAT NO; ULNAR PULSE PRESENT
[2016-05-03] MEDS ORDERED: SODIUM CHLORIDE 23.4% INJ 240 MEQ in SYRINGE/BAG 1 EA IV ONE (17:45)
[2016-05-03 19:07] LABS: POTASSIUM 3.8 MEQ/L (3.5-5.1)
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
[2016-05-03] MEDS: POLYETHYLENE GLYCOL 17 GM PKG PO/NG SCH (20:09)
[2016-05-04] VITALS (20 sets, daily range): BP systolic 113–146; BP diastolic 69–95; PULSE 101–116; RESP 22–28; TEMP 99.9–102.2; O2SAT 93–100
[2016-05-04] MEDS: PROPOFOL 1000 MG/100 ML INJ 100 ML IV SCH ×8 (01:05→20:35)
[2016-05-04] MEDS: RESP: ALBUTEROL 2.5 MG/IPRATROPIUM 0.5 MG NEB (SCH) NEB ×4 (03:07→19:43)
--- NOTE | 2016-05-04 03:25 | RADRPT ---
EXAM DATE/TIME: 05/04/2016 02:30 [facility] COMPARISON: CHEST SINGLE AP, May 03, 2016, 3:41. INDICATIONS : Shortness of breath. MEDICAL HISTORY : None. SURGICAL HISTORY : None. ENCOUNTER: Subsequent ACUITY: 1 week PAIN SCORE: Non-responsive. LOCATION: Bilateral chest FINDINGS: Shallow lung lines and patchy basilar air space disease. Endotracheal tube, left subclavian line and enteric tube again noted. CONCLUSION: No significant change has occurred. Onesimo Jackson MD on May 04, 2016 at 3:23 Board Certified Radiologist. This report was verified electronically.
[2016-05-04] MEDS: fentaNYL DRIP 250 ML IV SCH ×3 (03:33→20:09)
[2016-05-04] MEDS: MIDAZOLAM 100 MG/ML INJ 100 ML IV SCH ×2 (03:34→18:14)
[2016-05-04] MEDS: CHLORHEXIDINE GLUCONATE 2 % 1 PACK (2 CLOTHS) TOP SCH (03:37)
[2016-05-04] MEDS: ACETAMINOPHEN 325 MG TAB PO PRN ×3 (03:54→20:09)
[2016-05-04 05:01] LABS: HEMATOCRIT 29.8 % (39.0-51.0); MEAN CELL VOLUME 82.4 FL (80.0-100.0); MEAN CORPUSCULAR HEMOGLOBIN 27.7 PG (27.0-34.0); MEAN CORPUSCULAR HGB CONC 33.6 % (32.0-36.0); PLATELET COUNT 211 TH/MM3 (150-450); RED BLOOD COUNT 3.62 MIL/MM3 (4.50-5.90); RED CELL DISTRIBUTION WIDTH 15.7 % (11.6-17.2); WHITE BLOOD COUNT 8.8 TH/MM3 (4.0-11.0)
[2016-05-04] MEDS: 3% SALINE INJ 500 ML IV SCH (05:02)
[2016-05-04] MEDS: SODIUM CHLOR 0.9% 1000 ML INJ 1,000 ML IV SCH (05:03)
[2016-05-04 05:06] LABS: HEMO FLAGS AUTO DIFF
[2016-05-04 05:41] LABS: ALKALINE PHOSPHATASE 73 U/L (45-117); ALT (GPT) 22 U/L (12-78); ANION GAP 7 MEQ/L (5-15); AST (GOT) 19 U/L (15-37); BLOOD UREA NITROGEN 16 MG/DL (7-18); CHLORIDE 125 MEQ/L (98-107); GLOMERULAR FILTRATION RATE 70 ML/MIN (>89); POTASSIUM 3.7 MEQ/L (3.5-5.1); TOTAL BILIRUBIN ADULT 0.6 MG/DL (0.2-1.0)
[2016-05-04 05:52] LABS: SODIUM (NA) 157 MEQ/L (136-145)
[2016-05-04 05:59] LABS: BANDS 3 % (0-6); EOSINOPHILS 4 % (0-4); METAMYELOCYTES 3 % (0-1); PLATELET ESTIMATE SMEAR NORMAL (NORMAL); PLATELET MORPHOLOGY NORMAL (NORMAL); POLYS (SEG NEUTROPHILS) 73 % (16-70); SCAN/DIFF FINAL DIFF MANUAL; WBC DIFF SAMPLE 100
[2016-05-04] MEDS: CHLORHEXIDINE 0.12% (ORAL KIT) 15 ML CUP MT SCH ×2 (08:00→20:09)
[2016-05-04] MEDS: levETIRAcetam INJ 500 MG in SODIUM CHLORIDE 0.9% INJ 100 ML IV SCH ×2 (08:24→20:09)
[2016-05-04] MEDS: PANTOPRAZOLE SODIUM 40 MG VIAL IV SCH (08:24)
[2016-05-04] MEDS: DOCUSATE SODIUM 50 MG/SENNA 8.6 MG TAB PO SCH ×2 (08:24→20:09)
[2016-05-04] MEDS: POLYETHYLENE GLYCOL 17 GM PKG PO/NG SCH ×2 (08:24→20:09)
[2016-05-04] MEDS: SODIUM CHLORIDE 0.9% FLUSH 5 ML FLUSH IV FLUSH SCH ×2 (08:24→20:10)
[2016-05-04] MEDS: LACTULOSE SYRUP 20 GM/30 ML CUP PO SCH (08:24)
[2016-05-04] MEDS: BISACODYL 10 MG SUPP RECTAL SCH (08:25)
[2016-05-04 09:12] LABS: BLOOD GAS BASE EXCESS -2.9 mmol/L (-2-2); BLOOD GAS CARBOXYHEMOGLOBIN 1.1 % (0-4); BLOOD GAS HCO3 21 mmol/L (22-26); BLOOD GAS METHEMOGLOBIN 0.9 % (0-2); BLOOD GAS O2 HGB SATURATION 94 % (90-100); BLOOD GAS PCO2 35 mmHg (38-42); BLOOD GAS PO2 80 mmHg (61-120); BLOOD GAS TOTAL HGB 9.8 G/DL (12.0-16.0); CRITICAL VALUE NO; DRAW SITE RT RADIAL; FIO2 50 %; NUMBER OF ARTERIAL PUNCTURES 1; OXYGEN DEVICE VENTILATOR; STAT NO; TEMP CORR TO 98.6; ULNAR PULSE PRESENT
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
[2016-05-04 12:32] LABS: BACTERIA, URINE RARE /hpf; BLOOD, URINE NEG (NEG); GLUCOSE,URINE NEG (NEG); KETONE, URINE NEG (NEG); MUCUS URINE FEW /lpf (OCC); NITRITE,URINE NEG (NEG); PH, URINE 5.5 (5.0-8.5); URINE COLOR YELLOW (YELLW/STRAW)
[2016-05-04 12:34] LABS: COMMENT (UR) CATH-CULTURE IND; CULTURE IF INDICATED CATH CULTURE IND
[2016-05-04] MEDS ORDERED: ACETAMINOPHEN 1000 MG/100 ML VIAL IV ONE (13:30)
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
[2016-05-05] VITALS (19 sets, daily range): BP systolic 129–138; BP diastolic 79–86; PULSE 101–118; RESP 28; TEMP 99.9–102.2; O2SAT 92–99
[2016-05-05] MEDS: SODIUM CHLOR 0.9% 1000 ML INJ 1,000 ML IV SCH (00:46)
[2016-05-05] MEDS: ACETAMINOPHEN 325 MG TAB PO PRN ×3 (00:52→20:14)
[2016-05-05] MEDS: RESP: ALBUTEROL 2.5 MG/IPRATROPIUM 0.5 MG NEB (SCH) NEB ×4 (01:14→19:58)
[2016-05-05] MEDS: MIDAZOLAM 100 MG/ML INJ 100 ML IV SCH ×3 (01:48→20:13)
[2016-05-05] MEDS: PROPOFOL 1000 MG/100 ML INJ 100 ML IV SCH ×8 (01:48→22:55)
[2016-05-05] MEDS: fentaNYL DRIP 250 ML IV SCH ×3 (01:48→20:14)
[2016-05-05] MEDS ORDERED: SODIUM CHLORIDE 23.4% INJ 120 MEQ in SYRINGE/BAG 1 EA IV ONE (02:00)
[2016-05-05] MEDS: CHLORHEXIDINE GLUCONATE 2 % 1 PACK (2 CLOTHS) TOP SCH (03:25)
[2016-05-05] MEDS: 3% SALINE INJ 500 ML IV SCH (04:17)
[2016-05-05 04:21] LABS: AUTOMATED NEUTROPHIL # 5.6 TH/MM3 (1.8-7.7); BASOPHIL % 0.4 % (0.0-2.0); EOSINOPHIL # 0.2 TH/MM3 (0-0.4); EOSINOPHIL % 2.1 % (0.0-4.0); HEMATOCRIT 29.1 % (39.0-51.0); HEMO FLAGS DIFF FINAL; LYMPH % 13.8 % (9.0-44.0); LYMPHOCYTE # 1.1 TH/MM3 (1.0-4.8); MEAN CORPUSCULAR HEMOGLOBIN 27.2 PG (27.0-34.0); MEAN CORPUSCULAR HGB CONC 32.8 % (32.0-36.0); MONO % 15.9 % (0.0-8.0); NEUT % 67.8 % (16.0-70.0); PLATELET COUNT 222 TH/MM3 (150-450); RED CELL DISTRIBUTION WIDTH 15.4 % (11.6-17.2); WHITE BLOOD COUNT 8.2 TH/MM3 (4.0-11.0)
[2016-05-05 04:52] LABS: MAGNESIUM 2.2 MG/DL (1.5-2.5)
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
[2016-05-05 06:14] LABS: ALKALINE PHOSPHATASE 69 U/L (45-117); ALT (GPT) 29 U/L (12-78); ANION GAP 9 MEQ/L (5-15); AST (GOT) 29 U/L (15-37); BICARBONATE 23.7 MEQ/L (21.0-32.0); BLOOD UREA NITROGEN 19 MG/DL (7-18); CHLORIDE 124 MEQ/L (98-107); GLOMERULAR FILTRATION RATE 65 ML/MIN (>89); POTASSIUM 3.5 MEQ/L (3.5-5.1); TOTAL BILIRUBIN ADULT 0.7 MG/DL (0.2-1.0)
[2016-05-05 06:29] LABS: SODIUM (NA) 157 MEQ/L (136-145)
[2016-05-05] MEDS: CHLORHEXIDINE 0.12% (ORAL KIT) 15 ML CUP MT SCH ×2 (09:08→20:15)
[2016-05-05] MEDS: PANTOPRAZOLE SODIUM 40 MG VIAL IV SCH (09:09)
[2016-05-05] MEDS: POLYETHYLENE GLYCOL 17 GM PKG PO/NG SCH ×2 (09:09→20:15)
[2016-05-05] MEDS: DOCUSATE SODIUM 50 MG/SENNA 8.6 MG TAB PO SCH ×2 (09:09→20:15)
[2016-05-05] MEDS: levETIRAcetam INJ 500 MG in SODIUM CHLORIDE 0.9% INJ 100 ML IV SCH ×2 (09:09→20:14)
[2016-05-05] MEDS: BISACODYL 10 MG SUPP RECTAL SCH (09:09)
[2016-05-05] MEDS: SODIUM CHLORIDE 0.9% FLUSH 5 ML FLUSH IV FLUSH SCH ×2 (09:09→20:15)
[2016-05-05] MEDS: LACTULOSE SYRUP 20 GM/30 ML CUP PO SCH (09:09)
[2016-05-05] MEDS: POTASSIUM CHLOR 20 MEQ PREMIX 100 ML IV PRN (09:51)
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
[2016-05-05] MEDS ORDERED: Vancomycin Consult Pharmacy 1 EA OTHER SCH (11:00)
[2016-05-05] MEDS ORDERED: FUROSEMIDE 20 MG/2 ML VIAL IV PUSH ONE (11:00)
[2016-05-05] MEDS: metroNIDAZOLE 500 MG INJ 100 ML IV SCH ×2 (11:13→20:15)
[2016-05-05] MEDS: CEFEPIME INJ 2,000 MG in SODIUM CHLORIDE 0.9% INJ 100 ML IV SCH ×2 (11:14→22:55)
[2016-05-05] MEDS ORDERED: POTASSIUM PHOSPHATE INJ 30 MMOL in SODIUM CHLOR 0.9% 250 ML INJ 250 ML IV ONE (11:30)
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
--- NOTE | 2016-05-05 12:03 | RADRPT ---
EXAM DATE/TIME: 05/05/2016 10:57 [place] COMPARISON: CHEST SINGLE AP, May 04, 2016, 2:30. INDICATIONS : Hypoxia. MEDICAL HISTORY : None. SURGICAL HISTORY : None. ENCOUNTER: Subsequent ACUITY: 1 week PAIN SCORE: Non-responsive. LOCATION: chest FINDINGS: The heart is enlarged. There are bilateral effusions. The patient's left subclavian lines in good pos ition. ET tube in good position. There is diffuse interstitial prominence. Sim would suggest congesti ve failure. Findings are stable compared to previous exam. CONCLUSION: 1. Support equipment in good position. 2. Cardiomegaly, effusions and interstitial prominence suggesting CHF. Rj Estrella MD on May 05, 2016 at 12:00 Board Certified Radiologist. This report was verified electronically.
[2016-05-05] MEDS: VANCOMYCIN INJ 1,750 MG in SODIUM CHLORID 0.9% 500 ML INJ 500 ML IV SCH ×2 (12:08→22:55)
[2016-05-05] MEDS: POTASSIUM PHOSPHATE INJ 30 MMOL in SODIUM CHLOR 0.9% 250 ML INJ 250 ML IV PRN (12:51)
--- NOTE | 2016-05-05 14:26 | HHI.NSPN ---
(Xu Reyes) History Chief Complaint: intubated and sedated (Xu Reyes) Interval History 05/05/16: Pt sedated and intubated. Sedated on Fentanyl, Versed, and Diprivan drips. [place] in place ICPs 14-19. range (Xu Reyes) System Review Comments Not able to obtain given sedation and intubation. (Xu Reyes) Exam Results Vital Signs Date Time Temp Pulse Resp B/P Pulse Ox O2 Delivery O2 Flow Rate FiO2 05/05/16 11:44 93 60 05/05/16 06:00 118 05/05/16 04:00 101.3 28 135/83 Intake and Output 05/04/16 05/04/16 05/05/16 08:00 16:00 00:00 Intake Total 1480 ml 1957 ml 1630 ml Output Total 750 ml 900 ml 850 ml Balance 730 ml 1057 ml 780 ml (Xu Reyes) Physical Examination Resp: Intubated. CTA bilaterally. PRVC A/C rate 28 Heart: NSR no murmurs Abd: Soft positive bs. OG TFs 65ml/hr Skin: No cyanosis or erythema. Muscle: Not following for muscle testing. No movement to deep pain in upper chest. Sedated. Neuro: Pt sedated on Fentanyl, Versed, Diprivan. [place] bolt in place. ICPs 19. (Xu Reyes) Lab, Micro, Other Results Last Impressions Head CT 05/05/16 0600 Signed Impressions: Service Date/Time: Thursday, May 05, 2016 04:51 - CONCLUSION: 1. Unchanged exam with areas of parenchymal and subarachnoid hemorrhage and 3 mm of [id number] midline shift. The ventricles remain patent. 2. Right temporal fracture. Nathaniel Dunn Jr., MD Chest X-Ray 05/05/16 0000 Signed Impressions: Service Date/Time: Thursday, May 05, 2016 10:57 - CONCLUSION: 1. Support equipment in good position. 2. Cardiomegaly, effusions and interstitial prominence suggesting CHF. Rj Estrella MD Lower Extremity Ultrasound 05/04/16 0000 Signed Impressions: Service Date/Time: April 11:14 - CONCLUSION: 1. Deep venous thrombosis within the right posterior tibial veins. 2. No deep venous thrombosis within the left lower extremity. Jovon Mead MD Pelvis X-Ray 04/28/162156 Signed Impressions: Service Date/Time: Thursday, April 28, 2016 21:44 - CONCLUSION: Negative trauma study. Fidencio Holland MD Chest CT 04/28/162156 Signed Impressions: Service Date/Time: Thursday, April 28, 2016 22:20 - CONCLUSION: 1. Dense consolidation right upper lobe. This could represent aspiration pneumonia and/ or lung contusion. 2. Milder consolidation is present in both posterior medial lung bases with no pneumothorax. Fidencio Holland MD Cervical Spine CT 04/28/162156 Signed Impressions: Service Date/Time: Thursday, April 28, 2016 22:14 - CONCLUSION: Negative trauma CT. Fidencio Holland MD Abdomen/Pelvis CT 04/28/162156 Signed Impressions: Service Date/Time: Thursday, April 28, 2016 22:20 - CONCLUSION: 1. No evidence of visceral injury. 2. Consolidation in both posterior lung bases. Please see chest CT report for further details. Fidencio Holland MD Laboratory Tests Test 05/04/16 05/04/16 05/05/16 05/05/16 16:37 23:00 04:00 11:30 Sodium Level 155 MEQ/L 152 MEQ/L 157 MEQ/L 155 MEQ/L Serum Osmolality 326 MOSM/KG 333 MOSM/KG 332 MOSM/KG 332 MOSM/KG White Blood Count 8.2 TH/MM3 Red Blood Count 3.50 MIL/MM3 Hemoglobin 9.5 GM/DL Hematocrit 29.1 % Mean Corpuscular Volume 83.0 FL Mean Corpuscular Hemoglobin 27.2 PG Mean Corpuscular Hemoglobin 32.8 % Concent Red Cell Distribution Width 15.4 % Platelet Count 222 TH/MM3 Mean Platelet Volume 7.5 FL Neutrophils (%) (Auto) 67.8 % Lymphocytes (%) (Auto) 13.8 % Monocytes (%) (Auto) 15.9 % Eosinophils (%) (Auto) 2.1 % Basophils (%) (Auto) 0.4 % Neutrophils # (Auto) 5.6 TH/MM3 Lymphocytes # (Auto) 1.1 TH/MM3 Monocytes # (Auto) 1.3 TH/MM3 Eosinophils # (Auto) 0.2 TH/MM3 Basophils # (Auto) 0.0 TH/MM3 CBC Comment DIFF FINAL Differential Comment Potassium Level 3.5 MEQ/L Chloride Level 124 MEQ/L Carbon Dioxide Level 23.7 MEQ/L Anion Gap 9 MEQ/L Blood Urea Nitrogen 19 MG/DL Creatinine 0.99 MG/DL Estimat Glomerular Filtration 65 ML/MIN Rate Random Glucose 175 MG/DL Calcium Level 8.4 MG/DL Phosphorus Level 1.8 MG/DL Magnesium Level 2.2 MG/DL Total Bilirubin 0.7 MG/DL Aspartate Amino Transf 29 U/L (AST/SGOT) Alanine Aminotransferase 29 U/L (ALT/SGPT) Alkaline Phosphatase 69 U/L Total Protein 6.7 GM/DL Albumin 2.0 GM/DL 05/04/16 05/04/16 05/05/16 15:00 23:00 07:00 Intake Total 1957 ml 1630 ml 1630 ml Output Total 900 ml 850 ml 700 ml Balance 1057 ml 780 ml 930 ml Intake IV Total 1292 ml 1020 ml 1070 ml Tube Feeding 545 ml 430 ml 380 ml Other 120 ml 180 ml 180 ml Output Urine Total 900 ml 850 ml 700 ml # Bowel Movements 0 0 0 (Xu Reyes) Medical Decision Making Impression and Plan A: Impression: 1. Stable CT and neurologic exam following traumatic brain injury. ICPs 14-19 with good waveform. Plan: Continue to monitor Continue with ICP control. Possibly D/C bolt if ICPs stay controlled. (Xu Reyes) Attending Statement The exam, history, and the medical decision-making described in the above note were completed with the assistance of the mid-level provider. I reviewed and agree with the findings presented. I attest that I had a [id number] encounter with the patient on the same day, and personally performed and documented my assessment and findings in the medical record. ICPs the controlled with the current level of sedation and medical management. Follow- up CT scan of the head stable. Continue with current ICP control measures. ( Carlito Amezcua MD) Xu Reyes May 05, 2016 14:26 Carlito Amezcua MD May 05, 2016 14:50
[2016-05-05] MEDS: ENOXAPARIN SODIUM 40 MG/0.4 ML SYRINGE SQ SCH (16:41)
[2016-05-05] MEDS ORDERED: LACTULOSE SYRUP 20 GM/30 ML CUP PO SCH (21:00)
[2016-05-06] VITALS (20 sets, daily range): BP systolic 105–139; BP diastolic 58–97; PULSE 65–114; RESP 28; TEMP 92–101.5; O2SAT 92–100
[2016-05-06] MEDS: PROPOFOL 1000 MG/100 ML INJ 100 ML IV SCH ×7 (02:25→22:14)
[2016-05-06] MEDS: RESP: ALBUTEROL 2.5 MG/IPRATROPIUM 0.5 MG NEB (SCH) NEB ×4 (03:56→19:35)
[2016-05-06] MEDS: CHLORHEXIDINE GLUCONATE 2 % 1 PACK (2 CLOTHS) TOP SCH (04:00)
[2016-05-06] MEDS: fentaNYL DRIP 250 ML IV SCH ×3 (04:22→18:28)
[2016-05-06] MEDS: MIDAZOLAM 100 MG/ML INJ 100 ML IV SCH ×2 (04:22→16:01)
[2016-05-06] MEDS: metroNIDAZOLE 500 MG INJ 100 ML IV SCH ×3 (04:23→19:41)
[2016-05-06] MEDS: 3% SALINE INJ 500 ML IV SCH (04:24)
[2016-05-06 04:57] LABS: AUTOMATED NEUTROPHIL # 7.2 TH/MM3 (1.8-7.7); BASOPHIL # 0.1 TH/MM3 (0-0.2); BASOPHIL % 0.5 % (0.0-2.0); EOSINOPHIL # 0.3 TH/MM3 (0-0.4); EOSINOPHIL % 3.2 % (0.0-4.0); HEMATOCRIT 28.5 % (39.0-51.0); LYMPH % 11.8 % (9.0-44.0); LYMPHOCYTE # 1.2 TH/MM3 (1.0-4.8); MEAN CORPUSCULAR HEMOGLOBIN 27.6 PG (27.0-34.0); MEAN CORPUSCULAR HGB CONC 32.9 % (32.0-36.0); MONO % 12.1 % (0.0-8.0); NEUT % 72.4 % (16.0-70.0); PLATELET COUNT 261 TH/MM3 (150-450); RED CELL DISTRIBUTION WIDTH 15.7 % (11.6-17.2)
[2016-05-06 05:04] LABS: HEMO FLAGS AUTO DIFF
[2016-05-06 05:20] LABS: MAGNESIUM 2.4 MG/DL (1.5-2.5)
[2016-05-06] MEDS: SODIUM PHOSPHATE INJ 30 MMOL in SODIUM CHLOR 0.9% 250 ML INJ 240 ML IV PRN (06:54)
[2016-05-06] MEDS ORDERED: GLYCERIN ADULT 2 GM SUPP RECTAL PRN (07:45)
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
[2016-05-06 07:59] LABS: BLOOD GAS BASE EXCESS -1.8 mmol/L (-2-2); BLOOD GAS HCO3 22 mmol/L (22-26); BLOOD GAS METHEMOGLOBIN 0.9 % (0-2); BLOOD GAS O2 HGB SATURATION 90 % (90-100); BLOOD GAS OXYGEN CONTENT 12.7 Vol % (12.0-20.0); BLOOD GAS PCO2 38 mmHg (38-42); BLOOD GAS PO2 66 mmHg (61-120); BLOOD GAS TOTAL HGB 9.9 G/DL (12.0-16.0); TEMP CORR TO 98.6
[2016-05-06 08:00] LABS: CRITICAL VALUE NO; DRAW SITE RT RADIAL; FIO2 60 %; NUMBER OF ARTERIAL PUNCTURES 2; OXYGEN DEVICE VENTILATOR; STAT NO; ULNAR PULSE PRESENT; VENT SETTINGS PRVC
[2016-05-06] MEDS ORDERED: METHYLNALTREXONE BROMIDE 12 MG/0.6 ML VIAL SQ ONE (08:00)
[2016-05-06] MEDS: POTASSIUM PHOSPHATE/SODIUM PHOSPHATE 250 MG TAB PO/TUBE SCH ×3 (08:00→22:00)
[2016-05-06] MEDS ORDERED: BUMETANIDE INJ 1 MG/4 ML VIAL IV PUSH ONE (08:00)
[2016-05-06] MEDS ORDERED: MINERAL OIL LIQUID 30 ML CUP PO ONE (08:00)
[2016-05-06] MEDS: PANTOPRAZOLE SODIUM 40 MG VIAL IV SCH (08:42)
[2016-05-06] MEDS: POLYETHYLENE GLYCOL 17 GM PKG PO SCH (08:42)
[2016-05-06] MEDS: METOCLOPRAMIDE HCL 10 MG/2 ML VIAL IV PUSH SCH ×2 (08:43→15:56)
[2016-05-06] MEDS: levETIRAcetam INJ 500 MG in SODIUM CHLORIDE 0.9% INJ 100 ML IV SCH ×2 (08:44→20:30)
[2016-05-06] MEDS: CHLORHEXIDINE 0.12% (ORAL KIT) 15 ML CUP MT SCH ×2 (08:44→19:41)
[2016-05-06] MEDS: POLYETHYLENE GLYCOL 17 GM PKG PO/NG SCH ×2 (08:48→21:00)
[2016-05-06] MEDS: DOCUSATE SODIUM 50 MG/SENNA 8.6 MG TAB PO SCH (08:48)
[2016-05-06] MEDS: BISACODYL 10 MG SUPP RECTAL SCH (09:00)
[2016-05-06] MEDS: SODIUM CHLORIDE 0.9% FLUSH 5 ML FLUSH IV FLUSH SCH ×2 (09:08→19:41)
[2016-05-06] MEDS ORDERED: DEXMEDETOMIDINE INJ 50 ML IV SCH (09:15)
[2016-05-06] MEDS ORDERED: HALOPERIDOL LACTATE 5 MG/ML AMP IV PUSH PRN (09:15)
--- NOTE | 2016-05-06 09:15 | RADRPT ---
EXAM DATE/TIME: 05/06/2016 08:11 [facility] COMPARISON: No previous studies available for comparison. INDICATIONS : Evaluate for Ileus. MEDICAL HISTORY : Unobtainable. SURGICAL HISTORY : Unobtainable. ENCOUNTER: Initial ACUITY: 1 day PAIN SCORE: Non-responsive. LOCATION: Abdomen. FINDINGS: Supine view of the abdomen was performed. There is a gastric tubing overlying the stomach. The abdomi nal bowel gas pattern is normal. No abnormal masses, calcifications, or organomegaly is seen. The o sseous structures are unremarkable. CONCLUSION: No evidence of bowel obstruction or ileus.. Kayla Chi MD on May 06, 2016 at 9:13 Board Certified Radiologist. This report was verified electronically.
[2016-05-06 09:20] LABS: BANDS 30 % (0-6); BASOPHILS 1 % (0-2); CORRECTED NUCLEATED RBC 1 /100 WBC (0-0); EOSINOPHILS 4 % (0-4); METAMYELOCYTES 1 % (0-1); NEUTROPHIL # MANUAL DIFF 7.4 TH/MM3 (1.8-7.7); POLYS (SEG NEUTROPHILS) 43 % (16-70); WBC DIFF SAMPLE 100
[2016-05-06] MEDS: ACETAMINOPHEN 325 MG TAB PO PRN (09:20)
[2016-05-06 09:21] LABS: PLATELET ESTIMATE SMEAR NORMAL (NORMAL); PLATELET MORPHOLOGY NORMAL (NORMAL); SCAN/DIFF FINAL DIFF MANUAL
[2016-05-06] MEDS: ARTIFICIAL TEARS OPTH SOLN 15 ML BTL EACH EYE SCH ×3 (09:29→22:14)
[2016-05-06] MEDS: DEXMEDETOMIDINE INJ 50 ML IV SCH ×8 (10:41→19:40)
[2016-05-06] MEDS: CEFEPIME INJ 2,000 MG in SODIUM CHLORIDE 0.9% INJ 100 ML IV SCH ×2 (11:36→22:14)
[2016-05-06 11:50] LABS: SODIUM (NA) 152 MEQ/L (136-145)
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
[2016-05-06] MEDS: VANCOMYCIN INJ 1,750 MG in SODIUM CHLORID 0.9% 500 ML INJ 500 ML IV SCH (12:42)
[2016-05-06] MEDS: LACTULOSE SYRUP 20 GM/30 ML CUP PO SCH ×2 (12:43→18:14)
[2016-05-06 13:45] LABS: ANION GAP 6 MEQ/L (5-15); AST (GOT) 39 U/L (15-37); BICARBONATE 26.1 MEQ/L (21.0-32.0); BLOOD UREA NITROGEN 23 MG/DL (7-18); CHLORIDE 120 MEQ/L (98-107); GLOMERULAR FILTRATION RATE 81 ML/MIN (>89); POTASSIUM 3.7 MEQ/L (3.5-5.1)
[2016-05-06 13:47] LABS: ALT (GPT) 33 U/L (12-78); TOTAL BILIRUBIN ADULT 0.6 MG/DL (0.2-1.0)
[2016-05-06 13:49] LABS: ALKALINE PHOSPHATASE 68 U/L (45-117)
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
--- NOTE | 2016-05-06 14:08 | OTSOAPIP ---
TIME SESSION COMPLETED: 1340 TREATMENT TIME: 0 MINS. CHART REVIEWED. RECEIVED OCCUPATIONAL THERAPY ORDERS FROM [facility]IPPS. REVIEWED ELECTRONIC MEDICAL RECORD AND ATTEMPTED TO SEE PATIENT, HOWEVER UPON ARRIVAL, RN REQUESTS TO HOLD EVALUATION THIS DATE PATIENT'S ICP LEVELS ARE JUST NOW STABLE AFTER BEING ELEVATED FOR SOME TIME. WILL HOLD AND REATTEMPT TOMORROW. INTERDISCIPLINARY COMMUNICATION: REVIEWED ELECTRONIC MEDICAL RECORD, SPOKE WITH DESIRAE DOMINGO Therapist: Mavis Bruner OTR/L Signature on file
[2016-05-06] MEDS: ENOXAPARIN SODIUM 40 MG/0.4 ML SYRINGE SQ SCH (14:55)
[2016-05-06] MEDS ORDERED: POTASSIUM CHLOR 20 MEQ PREMIX 100 ML IV ONE (16:00)
[2016-05-06] MEDS: DEXMEDETOMIDINE INJ 1,000 MCG in SODIUM CHLOR 0.9% 250 ML INJ 240 ML IV SCH (22:17)
[2016-05-06] MEDS ORDERED: PHARMACY ORDERED LAB XX ONE (23:45)
[2016-05-07] VITALS (19 sets, daily range): BP systolic 99–146; BP diastolic 61–90; PULSE 80–87; RESP 26–28; TEMP 96.8–100; O2SAT 91–99
[2016-05-07] MEDS: POLYETHYLENE GLYCOL 17 GM PKG PO SCH ×3 (00:14→20:38)
[2016-05-07] MEDS: DOCUSATE SODIUM 50 MG/SENNA 8.6 MG TAB PO SCH ×3 (00:15→20:39)
[2016-05-07] MEDS ORDERED: POTASSIUM PHOSPHATE/SODIUM PHOSPHATE 250 MG TAB PO/TUBE SCH (01:00)
[2016-05-07] MEDS: VANCOMYCIN INJ 1,750 MG in SODIUM CHLORID 0.9% 500 ML INJ 500 ML IV SCH (02:50)
[2016-05-07] MEDS: LACTULOSE SYRUP 20 GM/30 ML CUP PO SCH ×4 (02:50→18:16)
[2016-05-07] MEDS: METOCLOPRAMIDE HCL 10 MG/2 ML VIAL IV PUSH SCH ×3 (02:50→15:50)
[2016-05-07] MEDS: PROPOFOL 1000 MG/100 ML INJ 100 ML IV SCH ×4 (02:51→18:55)
[2016-05-07] MEDS: CHLORHEXIDINE GLUCONATE 2 % 1 PACK (2 CLOTHS) TOP SCH (02:52)
[2016-05-07] MEDS: ACETAMINOPHEN 325 MG TAB PO PRN (02:54)
[2016-05-07] MEDS: MIDAZOLAM 100 MG/ML INJ 100 ML IV SCH ×3 (02:58→20:39)
[2016-05-07 03:01] LABS: MAGNESIUM 2.3 MG/DL (1.5-2.5)
[2016-05-07] MEDS: RESP: ALBUTEROL 2.5 MG/IPRATROPIUM 0.5 MG NEB (SCH) NEB ×4 (04:00→19:39)
[2016-05-07] MEDS: DEXMEDETOMIDINE INJ 1,000 MCG in SODIUM CHLOR 0.9% 250 ML INJ 240 ML IV SCH ×3 (04:30→18:21)
[2016-05-07] MEDS: metroNIDAZOLE 500 MG INJ 100 ML IV SCH (04:30)
[2016-05-07] MEDS: 3% SALINE INJ 500 ML IV SCH (05:15)
[2016-05-07 06:18] LABS: BLOOD GAS CARBOXYHEMOGLOBIN 1.1 % (0-4); BLOOD GAS HCO3 21 mmol/L (22-26); BLOOD GAS METHEMOGLOBIN 1.1 % (0-2); BLOOD GAS O2 HGB SATURATION 89 % (90-100); BLOOD GAS OXYGEN CONTENT 12.7 Vol % (12.0-20.0); BLOOD GAS PCO2 41 mmHg (38-42); BLOOD GAS PO2 66 mmHg (61-120); BLOOD GAS TOTAL HGB 10.1 G/DL (12.0-16.0); TEMP CORR TO 98.6
--- NOTE | 2016-05-07 06:18 | RADRPT ---
EXAM DATE/TIME: 05/07/2016 05:26 [facility] COMPARISON: CHEST SINGLE AP, May 05, 2016, 10:57. INDICATIONS : Shortness of breath, possible pulmonary disease. MEDICAL HISTORY : None. SURGICAL HISTORY : None. ENCOUNTER: Subsequent ACUITY: 4 - 6 days PAIN SCORE: Non-responsive. LOCATION: Bilateral chest FINDINGS: A single portable frontal view the chest shows diffuse bilateral pulmonary infiltrates with small eff usions. This has progressed somewhat from the prior study. Heart is normal in size. Tip of endotrache al tube 5 cm cephalad to the luis. Nasogastric tube tip courses off the intra-margin of the film. L eft subclavian central line observed. CONCLUSION: Some worsening in the bilateral pulmonary infiltrates and small effusions. Nathaniel Dunn Jr., MD on May 07, 2016 at 6:16 Board Certified Radiologist. This report was verified electronically.
[2016-05-07 06:19] LABS: CRITICAL VALUE YES; DRAW SITE RT RADIAL; FIO2 100 %; NUMBER OF ARTERIAL PUNCTURES 2; STAT NO; ULNAR PULSE Y; VENT SETTINGS PRVC 28/600/PEEP5
[2016-05-07] MEDS: POTASSIUM CHLOR 40 MEQ PREMIX 100 ML IV PRN ×2 (06:45→09:09)
[2016-05-07] MEDS: ARTIFICIAL TEARS OPTH SOLN 15 ML BTL EACH EYE SCH ×3 (06:46→20:39)
[2016-05-07] MEDS ORDERED: FUROSEMIDE 40 MG/4 ML VIAL ONE (07:13)
[2016-05-07 07:26] LABS: AUTOMATED NEUTROPHIL # 8.9 TH/MM3 (1.8-7.7); BASOPHIL % 0.2 % (0.0-2.0); EOSINOPHIL # 0.9 TH/MM3 (0-0.4); EOSINOPHIL % 7.8 % (0.0-4.0); HEMATOCRIT 26.7 % (39.0-51.0); HEMO FLAGS DIFF FINAL; LYMPH % 5.4 % (9.0-44.0); LYMPHOCYTE # 0.6 TH/MM3 (1.0-4.8); MEAN CELL VOLUME 84.5 FL (80.0-100.0); MEAN CORPUSCULAR HEMOGLOBIN 27.4 PG (27.0-34.0); MEAN CORPUSCULAR HGB CONC 32.4 % (32.0-36.0); MONO % 8.1 % (0.0-8.0); NEUT % 78.5 % (16.0-70.0); PLATELET COUNT 245 TH/MM3 (150-450); RED BLOOD COUNT 3.16 MIL/MM3 (4.50-5.90); RED CELL DISTRIBUTION WIDTH 16.1 % (11.6-17.2); WHITE BLOOD COUNT 11.3 TH/MM3 (4.0-11.0)
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
[2016-05-07] MEDS ORDERED: MINERAL OIL LIQUID 30 ML CUP PO ONE (07:30)
[2016-05-07] MEDS ORDERED: GLYCERIN ADULT 2 GM SUPP RECTAL PRN (07:30)
[2016-05-07 07:42] LABS: ALKALINE PHOSPHATASE 78 U/L (45-117); ALT (GPT) 30 U/L (12-78); ANION GAP 6 MEQ/L (5-15); AST (GOT) 34 U/L (15-37); BICARBONATE 24.6 MEQ/L (21.0-32.0); BLOOD UREA NITROGEN 35 MG/DL (7-18); CHLORIDE 122 MEQ/L (98-107); GLOMERULAR FILTRATION RATE 52 ML/MIN (>89); MAGNESIUM 2.4 MG/DL (1.5-2.5); POTASSIUM 3.2 MEQ/L (3.5-5.1); SODIUM (NA) 153 MEQ/L (136-145); TOTAL BILIRUBIN ADULT 0.7 MG/DL (0.2-1.0)
[2016-05-07] MEDS ORDERED: FUROSEMIDE 40 MG/4 ML VIAL IV PUSH ONE (08:00)
--- NOTE | 2016-05-07 08:01 | PD.PROCEDR ---
Procedure Note Procedure DATE: 05/07/2016 ARTERIAL LINE PLACEMENT: Right femoral artery. Ultrasound-guided INDICATION: Hemodynamic access DESCRIPTION OF THE PROCEDURE The patient was placed at 60 position. The skin was cleansed with Chloraprep. Additional barrier precautions included large sterile drape, sterile gloves, sterile gown, face mask, and hat. 1 % lidocaine was used for local anesthesia. Under direct ultrasound guidance and on initial attempt, the right femoral artery was accessed with an introducer needle. The guide wire was advanced. Using Seldinger technique a 20 Icelandic 12 cm femoral artery catheter was advanced to a depth of 12 centimeters. The guide wire was removed. The single port had good return of bright red pulsatile blood and flushed easily with saline. The arterial line was secured with 2.0 silk. A sterile dressing with antibiotic disc was applied. ESTIMATED BLOOD LOSS: Minimal COMPLICATIONS: No apparent complications. Isidoro Salgado MD May 07, 2016 08:01
[2016-05-07] MEDS: levETIRAcetam INJ 500 MG in SODIUM CHLORIDE 0.9% INJ 100 ML IV SCH ×2 (08:16→20:38)
[2016-05-07] MEDS: cefTRIAXone INJ 2,000 MG in SODIUM CHLORIDE 0.9% INJ 100 ML IV SCH (08:16)
[2016-05-07] MEDS: CHLORHEXIDINE 0.12% (ORAL KIT) 15 ML CUP MT SCH ×2 (08:18→20:38)
[2016-05-07 08:52] LABS: BLOOD GAS BASE EXCESS -2.4 mmol/L (-2-2); BLOOD GAS CARBOXYHEMOGLOBIN 1.1 % (0-4); BLOOD GAS HCO3 22 mmol/L (22-26); BLOOD GAS METHEMOGLOBIN 0.9 % (0-2); BLOOD GAS O2 HGB SATURATION 93 % (90-100); BLOOD GAS OXYGEN CONTENT 12.8 Vol % (12.0-20.0); BLOOD GAS PCO2 40 mmHg (38-42); BLOOD GAS PO2 75 mmHg (61-120); BLOOD GAS TOTAL HGB 9.8 G/DL (12.0-16.0); CRITICAL VALUE NO; DRAW SITE ART LINE; FIO2 100 %; OXYGEN DEVICE VENTILATOR; STAT NO; TEMP CORR TO 98.6
[2016-05-07 08:53] LABS: VENT SETTINGS PRVC/AC
[2016-05-07] MEDS: SODIUM CHLORIDE 0.9% FLUSH 5 ML FLUSH IV FLUSH SCH ×2 (09:00→20:39)
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
[2016-05-07] MEDS: BISACODYL 10 MG SUPP RECTAL SCH (10:48)
[2016-05-07] MEDS: PANTOPRAZOLE SODIUM 40 MG VIAL IV SCH (10:48)
--- NOTE | 2016-05-07 11:44 | OTSOAPIP ---
TIME SESSION COMPLETED: 1121 TREATMENT TIME: 0 MINS. CHART REVIEWED. ATTEMPTED TO SEE PATIENT, HOWEVER UPON ARRIVAL, RN REQUESTS TO HOLD EVALUATION THIS DATE PATIENT IS CURRENTLY PREPARING FOR EEG AND THEN FOR REMAINDER OF DAY HOLD DUE TO LUNG ISSUES. WILL REATTEMPT NEXT DAY. INTERDISCIPLINARY COMMUNICATION: REVIEWED ELECTRONIC MEDICAL RECORD, SPOKE WITH DESIRAE DOMINGO Therapist: Mavis Bruner, OTR/L Signature on file
[2016-05-07] MEDS: fentaNYL DRIP 250 ML IV SCH (12:09)
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
[2016-05-07] MEDS: ENOXAPARIN SODIUM 40 MG/0.4 ML SYRINGE SQ SCH (15:50)
[2016-05-07] MEDS ORDERED: BUMETANIDE INJ 1 MG/4 ML VIAL IV PUSH ONE (17:45)
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
[2016-05-07 19:12] LABS: BICARBONATE 24.7 MEQ/L (21.0-32.0); POTASSIUM 3.5 MEQ/L (3.5-5.1)
[2016-05-08] VITALS (18 sets, daily range): BP systolic 117–161; BP diastolic 74–88; PULSE 69–94; RESP 28–29; TEMP 98.5–100.4; O2SAT 93–98
[2016-05-08] MEDS: PROPOFOL 1000 MG/100 ML INJ 100 ML IV SCH ×3 (00:27→06:46)
[2016-05-08] MEDS: LACTULOSE SYRUP 20 GM/30 ML CUP PO SCH ×4 (00:31→18:00)
[2016-05-08] MEDS: METOCLOPRAMIDE HCL 10 MG/2 ML VIAL IV PUSH SCH ×3 (00:37→15:19)
[2016-05-08] MEDS: fentaNYL DRIP 250 ML IV SCH ×2 (00:38→12:05)
[2016-05-08] MEDS: NOREPINEPHRINE INJ 4 MG in SODIUM CHLOR 0.9% 250 ML INJ 246 ML IV SCH (00:46)
[2016-05-08] MEDS: RESP: ALBUTEROL 2.5 MG/IPRATROPIUM 0.5 MG NEB (SCH) NEB ×4 (03:15→20:41)
[2016-05-08] MEDS: DEXMEDETOMIDINE INJ 1,000 MCG in SODIUM CHLOR 0.9% 250 ML INJ 240 ML IV SCH ×3 (03:41→21:38)
[2016-05-08] MEDS: CHLORHEXIDINE GLUCONATE 2 % 1 PACK (2 CLOTHS) TOP SCH (04:00)
[2016-05-08 04:36] LABS: BLOOD GAS CARBOXYHEMOGLOBIN 0.9 % (0-4); BLOOD GAS HCO3 21 mmol/L (22-26); BLOOD GAS O2 HGB SATURATION 93 % (90-100); BLOOD GAS OXYGEN CONTENT 11.7 Vol % (12.0-20.0); BLOOD GAS PCO2 38 mmHg (38-42); BLOOD GAS PO2 76 mmHg (61-120); BLOOD GAS TOTAL HGB 8.9 G/DL (12.0-16.0); CRITICAL VALUE NO; OXYGEN DEVICE VENTILATOR; TEMP CORR TO 98.6
[2016-05-08 04:37] LABS: DRAW SITE ALINE; FIO2 80 %; STAT NO
--- NOTE | 2016-05-08 06:13 | RADRPT ---
EXAM DATE/TIME: 05/08/2016 05:26 [place] COMPARISON: CHEST SINGLE AP, May 07, 2016, 5:26. INDICATIONS : Follow up trauma. Respiratory status. MEDICAL HISTORY : None. SURGICAL HISTORY : None. ENCOUNTER: Subsequent ACUITY: 3 days PAIN SCORE: Non-responsive. LOCATION: Bilateral chest FINDINGS: A single view of the chest demonstrates improvement in bilateral airspace disease greater in the lowe r lobes. Probable small left pleural effusion. Endotracheal tube, nasogastric tube and left subclavia n central line are stable position. Osseous structures are intact. CONCLUSION: 1. Improving bilateral airspace disease. 2. Probable small left pleural effusion. Xu Martinez MD on May 08, 2016 at 6:11 Board Certified Radiologist. This report was verified electronically.
[2016-05-08] MEDS: 3% SALINE INJ 500 ML IV SCH (06:24)
[2016-05-08] MEDS: ARTIFICIAL TEARS OPTH SOLN 15 ML BTL EACH EYE SCH ×3 (06:24→20:34)
[2016-05-08] MEDS: MIDAZOLAM 100 MG/ML INJ 100 ML IV SCH ×2 (06:46→21:38)
[2016-05-08 06:54] LABS: BASOPHIL % 0.3 % (0.0-2.0); EOSINOPHIL # 0.9 TH/MM3 (0-0.4); HEMATOCRIT 25.4 % (39.0-51.0); HEMO FLAGS DIFF FINAL; LYMPH % 7.4 % (9.0-44.0); LYMPHOCYTE # 0.9 TH/MM3 (1.0-4.8); MEAN CELL VOLUME 83.1 FL (80.0-100.0); MEAN CORPUSCULAR HEMOGLOBIN 27.2 PG (27.0-34.0); MEAN CORPUSCULAR HGB CONC 32.8 % (32.0-36.0); MONO % 6.6 % (0.0-8.0); NEUT % 77.7 % (16.0-70.0); PLATELET COUNT 263 TH/MM3 (150-450); RED BLOOD COUNT 3.06 MIL/MM3 (4.50-5.90); RED CELL DISTRIBUTION WIDTH 16.2 % (11.6-17.2); WHITE BLOOD COUNT 11.6 TH/MM3 (4.0-11.0)
[2016-05-08 07:01] LABS: ALKALINE PHOSPHATASE 92 U/L (45-117); ALT (GPT) 38 U/L (12-78); ANION GAP 8 MEQ/L (5-15); AST (GOT) 38 U/L (15-37); BLOOD UREA NITROGEN 36 MG/DL (7-18); CHLORIDE 123 MEQ/L (98-107); GLOMERULAR FILTRATION RATE 44 ML/MIN (>89); MAGNESIUM 2.6 MG/DL (1.5-2.5); POTASSIUM 4.1 MEQ/L (3.5-5.1); TOTAL BILIRUBIN ADULT 0.7 MG/DL (0.2-1.0)
[2016-05-08 07:27] LABS: SODIUM (NA) 156 MEQ/L (136-145)
[2016-05-08] MEDS: DOCUSATE SODIUM 50 MG/SENNA 8.6 MG TAB PO SCH ×2 (09:00→20:32)
[2016-05-08] MEDS: BISACODYL 10 MG SUPP RECTAL SCH (09:00)
[2016-05-08] MEDS: levETIRAcetam INJ 500 MG in SODIUM CHLORIDE 0.9% INJ 100 ML IV SCH ×2 (09:48→20:34)
[2016-05-08] MEDS: cefTRIAXone INJ 2,000 MG in SODIUM CHLORIDE 0.9% INJ 100 ML IV SCH (09:48)
[2016-05-08] MEDS: CHLORHEXIDINE 0.12% (ORAL KIT) 15 ML CUP MT SCH ×2 (09:48→20:32)
[2016-05-08] MEDS: POLYETHYLENE GLYCOL 17 GM PKG PO SCH ×2 (09:49→20:31)
[2016-05-08] MEDS: SODIUM CHLORIDE 0.9% FLUSH 5 ML FLUSH IV FLUSH SCH ×2 (09:49→20:34)
[2016-05-08] MEDS: PANTOPRAZOLE SODIUM 40 MG VIAL IV SCH (09:49)
[2016-05-08] MEDS ORDERED: BUMETANIDE INJ 1 MG/4 ML VIAL IV PUSH ONE (11:00)
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
[2016-05-08] MEDS: ENOXAPARIN SODIUM 40 MG/0.4 ML SYRINGE SQ SCH (14:39)
[2016-05-08] MEDS: COLLAGENASE OINT 30 GM TUBE TOP SCH (14:39)
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
[2016-05-08] MEDS: LABETALOL HCL 100 MG/20 ML VIAL IV PRN (21:01)
[2016-05-09] VITALS (17 sets, daily range): BP systolic 137–155; BP diastolic 73–88; PULSE 93–147; RESP 28–29; TEMP 98.9–102.4; O2SAT 93–100
[2016-05-09] MEDS: CHLORHEXIDINE GLUCONATE 2 % 1 PACK (2 CLOTHS) TOP SCH (02:06)
[2016-05-09] MEDS: METOCLOPRAMIDE HCL 10 MG/2 ML VIAL IV PUSH SCH ×2 (02:06→08:24)
[2016-05-09] MEDS: RESP: ALBUTEROL 2.5 MG/IPRATROPIUM 0.5 MG NEB (SCH) NEB ×4 (03:24→19:53)
[2016-05-09] MEDS: fentaNYL DRIP 250 ML IV SCH (04:06)
[2016-05-09 05:31] LABS: BLOOD GAS BASE EXCESS -1.8 mmol/L (-2-2); BLOOD GAS HCO3 22 mmol/L (22-26); BLOOD GAS METHEMOGLOBIN 0.8 % (0-2); BLOOD GAS O2 HGB SATURATION 92 % (90-100); BLOOD GAS PCO2 34 mmHg (38-42); BLOOD GAS PO2 70 mmHg (61-120); BLOOD GAS TOTAL HGB 9.2 G/DL (12.0-16.0); CRITICAL VALUE NO; OXYGEN DEVICE VENTILATOR; TEMP CORR TO 98.6
[2016-05-09 05:32] LABS: DRAW SITE ART LINE; FIO2 70 %; NUMBER OF ARTERIAL PUNCTURES 0; STAT NO
[2016-05-09 05:39] LABS: BASOPHIL # 0.1 TH/MM3 (0-0.2); BASOPHIL % 0.4 % (0.0-2.0); EOSINOPHIL # 0.3 TH/MM3 (0-0.4); EOSINOPHIL % 1.9 % (0.0-4.0); HEMATOCRIT 25.6 % (39.0-51.0); LYMPH % 8.8 % (9.0-44.0); LYMPHOCYTE # 1.5 TH/MM3 (1.0-4.8); MEAN CORPUSCULAR HEMOGLOBIN 26.9 PG (27.0-34.0); MEAN CORPUSCULAR HGB CONC 32.9 % (32.0-36.0); MONO % 5.2 % (0.0-8.0); NEUT % 83.7 % (16.0-70.0); PLATELET COUNT 273 TH/MM3 (150-450); RED BLOOD COUNT 3.12 MIL/MM3 (4.50-5.90); RED CELL DISTRIBUTION WIDTH 15.8 % (11.6-17.2); WHITE BLOOD COUNT 16.7 TH/MM3 (4.0-11.0)
[2016-05-09] MEDS: DEXMEDETOMIDINE INJ 1,000 MCG in SODIUM CHLOR 0.9% 250 ML INJ 240 ML IV SCH (05:47)
[2016-05-09 05:48] LABS: HEMO FLAGS AUTO DIFF
[2016-05-09] MEDS: LACTULOSE SYRUP 20 GM/30 ML CUP PO SCH ×4 (05:48→14:43)
[2016-05-09] MEDS: ARTIFICIAL TEARS OPTH SOLN 15 ML BTL EACH EYE SCH ×3 (05:48→22:06)
--- NOTE | 2016-05-09 06:26 | RADRPT ---
EXAM DATE/TIME: 05/09/2016 04:38 [facility] COMPARISON: CHEST SINGLE AP, May 08, 2016, 5:26. INDICATIONS : Shortness of breath. MEDICAL HISTORY : None. SURGICAL HISTORY : None. ENCOUNTER: Subsequent ACUITY: 1 week PAIN SCORE: Non-responsive. LOCATION: Bilateral chest FINDINGS: A single view of the chest demonstrates endotracheal tube in satisfactory position. NG enters stomach . Left central line in superior vena cava. Bilateral mostly basilar airspace consolidation similar to May 08. CONCLUSION: 1. Basilar and perihilar airspace consolidation similar to May 08. Support apparatus unchanged. Heath Awan MD on May 09, 2016 at 6:23 Board Certified Radiologist. This report was verified electronically.
[2016-05-09 06:29] LABS: ALKALINE PHOSPHATASE 91 U/L (45-117); ALT (GPT) 84 U/L (12-78); ANION GAP 8 MEQ/L (5-15); AST (GOT) 79 U/L (15-37); BICARBONATE 26.2 MEQ/L (21.0-32.0); BLOOD UREA NITROGEN 37 MG/DL (7-18); CHLORIDE 126 MEQ/L (98-107); GLOMERULAR FILTRATION RATE 48 ML/MIN (>89); MAGNESIUM 2.6 MG/DL (1.5-2.5); POTASSIUM 4.2 MEQ/L (3.5-5.1); TOTAL BILIRUBIN ADULT 0.5 MG/DL (0.2-1.0)
[2016-05-09 06:43] LABS: SODIUM (NA) 160 MEQ/L (136-145)
[2016-05-09] MEDS: LABETALOL HCL 100 MG/20 ML VIAL IV PRN (06:58)
[2016-05-09 08:15] LABS: BANDS 30 % (0-6); CORRECTED NUCLEATED RBC 1 /100 WBC (0-0); EOSINOPHILS 1 % (0-4); MYELOCYTES 1 % (0-0); NEUTROPHIL # MANUAL DIFF 14.5 TH/MM3 (1.8-7.7); POLYS (SEG NEUTROPHILS) 56 % (16-70); WBC DIFF SAMPLE 100
[2016-05-09 08:16] LABS: PLATELET ESTIMATE SMEAR NORMAL (NORMAL); PLATELET MORPHOLOGY NORMAL (NORMAL); SCAN/DIFF FINAL DIFF MANUAL
[2016-05-09] MEDS: cefTRIAXone INJ 2,000 MG in SODIUM CHLORIDE 0.9% INJ 100 ML IV SCH (08:24)
[2016-05-09] MEDS: PANTOPRAZOLE SODIUM 40 MG VIAL IV SCH (08:24)
[2016-05-09] MEDS: SODIUM CHLORIDE 0.9% FLUSH 5 ML FLUSH IV FLUSH SCH ×2 (08:25→21:18)
[2016-05-09] MEDS: POLYETHYLENE GLYCOL 17 GM PKG PO SCH ×2 (08:29→21:00)
[2016-05-09] MEDS: CHLORHEXIDINE 0.12% (ORAL KIT) 15 ML CUP MT SCH ×2 (08:29→21:18)
[2016-05-09] MEDS: levETIRAcetam INJ 500 MG in SODIUM CHLORIDE 0.9% INJ 100 ML IV SCH (08:29)
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
[2016-05-09] MEDS ORDERED: BUMETANIDE INJ 1 MG/4 ML VIAL IV PUSH ONE (08:30)
[2016-05-09] MEDS: DOCUSATE SODIUM 50 MG/SENNA 8.6 MG TAB PO SCH ×2 (08:30→21:00)
[2016-05-09] MEDS: COLLAGENASE OINT 30 GM TUBE TOP SCH (08:30)
[2016-05-09] MEDS: BISACODYL 10 MG SUPP RECTAL SCH (08:30)
[2016-05-09] MEDS: ACETAMINOPHEN 325 MG TAB PO PRN ×2 (08:45→16:47)
--- NOTE | 2016-05-09 09:03 | HHI.NSPN ---
(Xu Reyes) History Chief Complaint: intubated and sedated (Xu Reyes) Interval History 05/05/16: Pt sedated and intubated. Sedated on Fentanyl, Versed, and Diprivan drips. [place] in place ICPs 14-19. range 05/09/16: Pt sedated on Fentanyl, Versed, and Precedex. Precedex being weaned. Opens eyes slightly to pain. Not following commands. Intubated. (Xu Reyes) System Review Comments Not able to obtain given level of alertness. (Xu Reyes) Exam Results Vital Signs Date Time Temp Pulse Resp B/P Pulse Ox O2 Delivery O2 Flow Rate FiO2 05/09/16 07:55 94 70 05/09/16 06:00 113 05/09/16 04:00 98.9 29 154/87 Intake and Output 05/08/16 05/08/16 05/09/16 08:00 16:00 00:00 Intake Total 1696 ml 1579 ml 1302 ml Output Total 825 ml 1900 ml 1250 ml Balance 871 ml -321 ml 52 ml (Xu Reyes) Physical Examination Resp: Intubated. CTA bilaterally. PRVC A/C rate 28. PEEP 10. FiO2 70% Heart: Mild tachycardia. No murmurs Abd: Mild distention. Diminished bs. Skin: No cyanosis or erythema Muscle: Not following for commands. Heavily sedated Neuro: Pt sedated on Fentanyl, Versed, and Precedex. Precedex being weaned. Pupils 3mm bilaterally reactive bilaterally. Not following commands. Opens eyes to pain. (Xu Reyes) Lab, Micro, Other Results Last Impressions Chest X-Ray 05/09/16 0600 Signed Impressions: Service Date/Time: Monday, May 09, 2016 04:38 - CONCLUSION: 1. Basilar and perihilar airspace consolidation similar to May 08. Support apparatus unchanged. Heath Awan MD Abdomen X-Ray 05/06/16 0000 Signed Impressions: Service Date/Time: Friday, May 06, 2016 08:11 - CONCLUSION: No evidence of bowel obstruction or ileus.. Kayla Chi MD Head CT 05/05/16 0600 Signed Impressions: Service Date/Time: Thursday, May 05, 2016 04:51 - CONCLUSION: 1. Unchanged exam with areas of parenchymal and subarachnoid hemorrhage and 3 mm of [id number] midline shift. The ventricles remain patent. 2. Right temporal fracture. Nathaniel Dunn Jr., MD Lower Extremity Ultrasound 05/04/16 0000 Signed Impressions: Service Date/Time: April 11:14 - CONCLUSION: 1. Deep venous thrombosis within the right posterior tibial veins. 2. No deep venous thrombosis within the left lower extremity. Jovon Mead MD Pelvis X-Ray 04/28/162156 Signed Impressions: Service Date/Time: Thursday, April 28, 2016 21:44 - CONCLUSION: Negative trauma study. Fidencio Holland MD Chest CT 04/28/162156 Signed Impressions: Service Date/Time: Thursday, April 28, 2016 22:20 - CONCLUSION: 1. Dense consolidation right upper lobe. This could represent aspiration pneumonia and/ or lung contusion. 2. Milder consolidation is present in both posterior medial lung bases with no pneumothorax. Fidencio Holland MD Cervical Spine CT 04/28/162156 Signed Impressions: Service Date/Time: Thursday, April 28, 2016 22:14 - CONCLUSION: Negative trauma CT. Fidencio Holland MD Abdomen/Pelvis CT 04/28/162156 Signed Impressions: Service Date/Time: Thursday, April 28, 2016 22:20 - CONCLUSION: 1. No evidence of visceral injury. 2. Consolidation in both posterior lung bases. Please see chest CT report for further details. Fidencio Holland MD Laboratory Tests Test 05/09/16 05/09/16 05:15 05:20 White Blood Count 16.7 TH/MM3 Red Blood Count 3.12 MIL/MM3 Hemoglobin 8.4 GM/DL Hematocrit 25.6 % Mean Corpuscular Volume 82.0 FL Mean Corpuscular Hemoglobin 26.9 PG Mean Corpuscular Hemoglobin 32.9 % Concent Red Cell Distribution Width 15.8 % Platelet Count 273 TH/MM3 Mean Platelet Volume 7.7 FL Neutrophils (%) (Auto) 83.7 % Lymphocytes (%) (Auto) 8.8 % Monocytes (%) (Auto) 5.2 % Eosinophils (%) (Auto) 1.9 % Basophils (%) (Auto) 0.4 % Neutrophils # (Auto) 14.0 TH/MM3 Lymphocytes # (Auto) 1.5 TH/MM3 Monocytes # (Auto) 0.9 TH/MM3 Eosinophils # (Auto) 0.3 TH/MM3 Basophils # (Auto) 0.1 TH/MM3 CBC Comment AUTO DIFF Differential Total Cells 100 Counted Neutrophils % (Manual) 56 % Band Neutrophils % 30 % Lymphocytes % 8 % Monocytes % 4 % Eosinophils % 1 % Neutrophils # (Manual) 14.5 TH/MM3 Myelocytes 1 % Nucleated Red Blood Cells 1 /100 WBC Differential Comment FINAL DIFF MANUAL Platelet Estimate NORMAL Platelet Morphology Comment NORMAL Sodium Level 160 MEQ/L Potassium Level 4.2 MEQ/L Chloride Level 126 MEQ/L Carbon Dioxide Level 26.2 MEQ/L Anion Gap 8 MEQ/L Blood Urea Nitrogen 37 MG/DL Creatinine 1.29 MG/DL Estimat Glomerular Filtration 48 ML/MIN Rate Random Glucose 151 MG/DL Calcium Level 8.9 MG/DL Phosphorus Level 2.9 MG/DL Magnesium Level 2.6 MG/DL Total Bilirubin 0.5 MG/DL Aspartate Amino Transf 79 U/L (AST/SGOT) Alanine Aminotransferase 84 U/L (ALT/SGPT) Alkaline Phosphatase 91 U/L Total Protein 6.5 GM/DL Albumin 1.7 GM/DL Blood Gas Puncture Site ART LINE Blood Gas Patient Temperature 98.6 Blood Gas HCO3 22 mmol/L Blood Gas Base Excess -1.8 mmol/L Blood Gas Oxygen Saturation 92 % Arterial Blood pH 7.43 Arterial Blood Partial 34 mmHg Pressure CO2 Arterial Blood Partial 70 mmHg Pressure O2 Arterial Blood Oxygen Content 12.0 Vol % Arterial Blood 1.0 % Carboxyhemoglobin Arterial Blood Methemoglobin 0.8 % Blood Gas Hemoglobin 9.2 G/DL Oxygen Delivery Device VENTILATOR Blood Gas Ventilator Setting Blood Gas Inspired Oxygen 70 % 05/08/16 05/08/16 05/09/16 15:00 23:00 07:00 Intake Total 1579 ml 1302 ml 601 ml Output Total 1900 ml 1250 ml 1200 ml Balance -321 ml 52 ml -599 ml Intake IV Total 1150 ml 689 ml 214 ml Tube Feeding 369 ml 493 ml 387 ml Other 60 ml 120 ml Output Urine Total 1900 ml 1250 ml 1150 ml Stool Total 50 ml # Bowel Movements 1 (Xu Reyes) Medical Decision Making Impression and Plan A: Impression: 1. Stable CT and neurologic exam following traumatic brain injury. Plan: Continue to monitor Continue with current care. (Xu Reyes) Attending Statement The exam, history, and the medical decision-making described in the above note were completed with the assistance of the mid-level provider. I reviewed and agree with the findings presented. I attest that I had a [id number] encounter with the patient on the same day, and personally performed and documented my assessment and findings in the medical record. He is highly sedated and recommended to wean off sedation starting with the Versed drip. Discussed with nursing staff. (Carlito Amezcua MD) Xu Reyes May 09, 2016 09:03 Carlito Amezcua MD May 09, 2016 11:17
[2016-05-09 10:56] LABS: BLOOD, URINE SMALL (NEG); GLUCOSE,URINE NEG (NEG); KETONE, URINE NEG (NEG); MUCUS URINE FEW /lpf (OCC); NITRITE,URINE NEG (NEG); PH, URINE 5.5 (5.0-8.5); SQUAMOUS EPITHELIAL CELL URINE <1 /hpf (0-5); URINE COLOR YELLOW (YELLW/STRAW)
[2016-05-09 10:57] LABS: COMMENT (UR) CATH-CULT NOT IND; CULTURE IF INDICATED CATH CULTURE NOT IND
[2016-05-09 11:55] LABS: C. DIFF EPI 027 PRESUMPTIVE NEGATIVE (NEGATIVE); C. DIFF TOXIN PCR NEGATIVE (NEGATIVE)
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
[2016-05-09] MEDS: ENOXAPARIN SODIUM 40 MG/0.4 ML SYRINGE SQ SCH (14:42)
[2016-05-10] VITALS (20 sets, daily range): BP systolic 136–173; BP diastolic 69–95; PULSE 91–134; RESP 28–34; TEMP 100.3–104.8; O2SAT 95–98
[2016-05-10] MEDS: ACETAMINOPHEN 325 MG TAB PO PRN ×2 (00:50→07:24)
[2016-05-10] MEDS: CHLORHEXIDINE GLUCONATE 2 % 1 PACK (2 CLOTHS) TOP SCH (03:10)
[2016-05-10] MEDS: RESP: ALBUTEROL 2.5 MG/IPRATROPIUM 0.5 MG NEB (SCH) NEB ×4 (03:14→21:05)
[2016-05-10] MEDS: LABETALOL HCL 100 MG/20 ML VIAL IV PRN (04:11)
[2016-05-10 05:02] LABS: ALKALINE PHOSPHATASE 106 U/L (45-117); ALT (GPT) 103 U/L (12-78); ANION GAP 8 MEQ/L (5-15); AST (GOT) 78 U/L (15-37); BICARBONATE 26.3 MEQ/L (21.0-32.0); CHLORIDE 128 MEQ/L (98-107); GLOMERULAR FILTRATION RATE 45 ML/MIN (>89); POTASSIUM 4.4 MEQ/L (3.5-5.1); TOTAL BILIRUBIN ADULT 0.7 MG/DL (0.2-1.0)
[2016-05-10 05:10] LABS: BLOOD UREA NITROGEN 39 MG/DL (7-18)
[2016-05-10 05:12] LABS: SODIUM (NA) 162 MEQ/L (136-145)
[2016-05-10 05:53] LABS: BASOPHIL % 0.4 % (0.0-2.0); EOSINOPHIL # 0.2 TH/MM3 (0-0.4); EOSINOPHIL % 1.2 % (0.0-4.0); HEMATOCRIT 25.8 % (39.0-51.0); LYMPH % 9.6 % (9.0-44.0); LYMPHOCYTE # 1.3 TH/MM3 (1.0-4.8); MEAN CELL VOLUME 82.1 FL (80.0-100.0); MEAN CORPUSCULAR HEMOGLOBIN 26.9 PG (27.0-34.0); MEAN CORPUSCULAR HGB CONC 32.8 % (32.0-36.0); MONO % 6.8 % (0.0-8.0); PLATELET COUNT 261 TH/MM3 (150-450); RED BLOOD COUNT 3.15 MIL/MM3 (4.50-5.90); RED CELL DISTRIBUTION WIDTH 16.2 % (11.6-17.2); WHITE BLOOD COUNT 13.4 TH/MM3 (4.0-11.0)
[2016-05-10] MEDS: LACTULOSE SYRUP 20 GM/30 ML CUP PO SCH ×5 (06:00→22:40)
[2016-05-10 06:14] LABS: HEMO FLAGS AUTO DIFF
[2016-05-10] MEDS: ARTIFICIAL TEARS OPTH SOLN 15 ML BTL EACH EYE SCH ×3 (06:53→22:40)
[2016-05-10 07:09] LABS: BANDS 17 % (0-6); NEUTROPHIL # MANUAL DIFF 11.8 TH/MM3 (1.8-7.7); POLYS (SEG NEUTROPHILS) 71 % (16-70); WBC DIFF SAMPLE 100
[2016-05-10 07:10] LABS: PLATELET ESTIMATE SMEAR NORMAL (NORMAL); PLATELET MORPHOLOGY NORMAL (NORMAL); SCAN/DIFF FINAL DIFF MANUAL; TARGET CELLS 1+ (NORMAL)
[2016-05-10] MEDS: cefTRIAXone INJ 2,000 MG in SODIUM CHLORIDE 0.9% INJ 100 ML IV SCH (08:08)
[2016-05-10] MEDS: PANTOPRAZOLE SODIUM 40 MG VIAL IV SCH (08:08)
[2016-05-10] MEDS: DOCUSATE SODIUM 50 MG/SENNA 8.6 MG TAB PO SCH ×2 (08:09→21:00)
[2016-05-10] MEDS: SODIUM CHLORIDE 0.9% FLUSH 5 ML FLUSH IV FLUSH SCH ×2 (08:09→22:38)
[2016-05-10] MEDS: POLYETHYLENE GLYCOL 17 GM PKG PO SCH ×2 (08:09→21:00)
[2016-05-10] MEDS: COLLAGENASE OINT 30 GM TUBE TOP SCH (08:09)
[2016-05-10] MEDS: CHLORHEXIDINE 0.12% (ORAL KIT) 15 ML CUP MT SCH ×2 (08:09→22:38)
[2016-05-10] MEDS: BISACODYL 10 MG SUPP RECTAL SCH (08:09)
[2016-05-10] MEDS ORDERED: PROPOFOL 1000 MG/100 ML INJ 100 ML IV SCH (08:45)
[2016-05-10] MEDS: SODIUM CHLOR 0.45% 1000 ML INJ 1,000 ML IV SCH (08:54)
[2016-05-10] MEDS: fentaNYL DRIP 250 ML IV SCH (08:56)
[2016-05-10] MEDS ORDERED: GLUCAGON 1 MG/ML VIAL OTHER PRN (10:00)
[2016-05-10] MEDS ORDERED: DEXTROSE 50% IN WATER 50 ML VIAL(D50) IV PUSH PRN (10:00)
[2016-05-10] MEDS: PROPRANOLOL HCL 40 MG TAB PO SCH ×2 (10:06→22:39)
[2016-05-10] MEDS: LEVOFLOXACIN 500 MG PREMIX INJ 100 ML IV SCH (10:35)
[2016-05-10] MEDS: INSULIN NovoLIN REGULAR SUPPLEMENTAL SCALE SQ SCH ×3 (10:59→21:00)
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
[2016-05-10] MEDS: ACETAMINOPHEN 1000 MG/100 ML VIAL IV PRN ×3 (11:37→23:57)
[2016-05-10] MEDS: FREE WATER G-TUBE SCH ×3 (11:37→22:40)
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
[2016-05-10] MEDS: ENOXAPARIN SODIUM 40 MG/0.4 ML SYRINGE SQ SCH (15:08)
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
[2016-05-10] MEDS ORDERED: MISCELLANEOUS PHARMACY INFORMATION XX PRN (15:15)
[2016-05-10] MEDS ORDERED: ASP: Other exception documentation: ( ) PRN (15:15)
[2016-05-10] MEDS: MEROPENEM INJ 1,000 MG in SODIUM CHLORIDE 0.9% INJ 100 ML IV SCH (16:46)
[2016-05-10] MEDS: LINEZOLID 600 MG TAB PO SCH (22:39)
[2016-05-11] VITALS (21 sets, daily range): BP systolic 117–156; BP diastolic 55–93; PULSE 92–122; RESP 28; TEMP 100.2–102.7; O2SAT 95–100
[2016-05-11] MEDS: SODIUM CHLOR 0.45% 1000 ML INJ 1,000 ML IV SCH ×2 (02:23→17:00)
[2016-05-11] MEDS: MEROPENEM INJ 1,000 MG in SODIUM CHLORIDE 0.9% INJ 100 ML IV SCH ×3 (02:23→17:00)
[2016-05-11] MEDS: CHLORHEXIDINE GLUCONATE 2 % 1 PACK (2 CLOTHS) TOP SCH (02:23)
[2016-05-11] MEDS: RESP: ALBUTEROL 2.5 MG/IPRATROPIUM 0.5 MG NEB (SCH) NEB (03:37)
[2016-05-11 05:57] LABS: AUTOMATED NEUTROPHIL # 8.9 TH/MM3 (1.8-7.7); BASOPHIL # 0.1 TH/MM3 (0-0.2); BASOPHIL % 0.8 % (0.0-2.0); EOSINOPHIL # 0.7 TH/MM3 (0-0.4); EOSINOPHIL % 5.7 % (0.0-4.0); HEMO FLAGS DIFF FINAL; LYMPH % 15.8 % (9.0-44.0); LYMPHOCYTE # 1.9 TH/MM3 (1.0-4.8); MEAN CORPUSCULAR HEMOGLOBIN 26.6 PG (27.0-34.0); MEAN CORPUSCULAR HGB CONC 32.5 % (32.0-36.0); MONO % 5.1 % (0.0-8.0); NEUT % 72.6 % (16.0-70.0); PLATELET COUNT 237 TH/MM3 (150-450); RED BLOOD COUNT 3.17 MIL/MM3 (4.50-5.90); RED CELL DISTRIBUTION WIDTH 15.9 % (11.6-17.2); WHITE BLOOD COUNT 12.3 TH/MM3 (4.0-11.0)
[2016-05-11] MEDS: FREE WATER G-TUBE SCH ×3 (06:00→17:00)
[2016-05-11] MEDS: LACTULOSE SYRUP 20 GM/30 ML CUP PO SCH ×3 (06:00→17:00)
[2016-05-11 06:18] LABS: ALKALINE PHOSPHATASE 89 U/L (45-117); ALT (GPT) 67 U/L (12-78); ANION GAP 6 MEQ/L (5-15); AST (GOT) 44 U/L (15-37); BICARBONATE 28.4 MEQ/L (21.0-32.0); BLOOD UREA NITROGEN 44 MG/DL (7-18); CHLORIDE 126 MEQ/L (98-107); GLOMERULAR FILTRATION RATE 50 ML/MIN (>89); POTASSIUM 3.9 MEQ/L (3.5-5.1); TOTAL BILIRUBIN ADULT 0.6 MG/DL (0.2-1.0)
[2016-05-11 06:20] LABS: SODIUM (NA) 160 MEQ/L (136-145)
[2016-05-11] MEDS: INSULIN NovoLIN REGULAR SUPPLEMENTAL SCALE SQ SCH ×4 (07:00→21:00)
[2016-05-11] MEDS: ARTIFICIAL TEARS OPTH SOLN 15 ML BTL EACH EYE SCH ×3 (07:11→22:00)
[2016-05-11] MEDS: ACETAMINOPHEN 1000 MG/100 ML VIAL IV PRN ×3 (07:15→22:18)
[2016-05-11] MEDS: LINEZOLID 600 MG TAB PO SCH ×2 (07:58→21:00)
[2016-05-11] MEDS: PROPRANOLOL HCL 40 MG TAB PO SCH ×2 (07:58→21:00)
[2016-05-11] MEDS: CHLORHEXIDINE 0.12% (ORAL KIT) 15 ML CUP MT SCH ×2 (07:59→20:00)
[2016-05-11] MEDS: DOCUSATE SODIUM 50 MG/SENNA 8.6 MG TAB PO SCH ×2 (07:59→20:26)
[2016-05-11] MEDS: PANTOPRAZOLE SODIUM 40 MG VIAL IV SCH (07:59)
[2016-05-11] MEDS: BISACODYL 10 MG SUPP RECTAL SCH (07:59)
[2016-05-11] MEDS: SODIUM CHLORIDE 0.9% FLUSH 5 ML FLUSH IV FLUSH SCH ×2 (07:59→20:25)
[2016-05-11] MEDS ORDERED: DEXTROSE 5% IV SCH ×2 (08:00)
[2016-05-11] MEDS ORDERED: CEFTRIAXONE IV SCH ×2 (08:00)
[2016-05-11] MEDS ORDERED: WATER IV SCH ×2 (08:00)
[2016-05-11] MEDS: COLLAGENASE OINT 30 GM TUBE TOP SCH (08:00)
[2016-05-11] MEDS: POLYETHYLENE GLYCOL 17 GM PKG PO SCH ×2 (08:01→20:26)
[2016-05-11] MEDS: LEVOFLOXACIN 500 MG PREMIX INJ 100 ML IV SCH (10:36)
[2016-05-11] MEDS ORDERED: LIDOCAINE 1%/EPINEPHrine 1:100,000 SOLN 20 ML VIAL ONE (11:54)
[2016-05-11] MEDS ORDERED: PHENYLEPH/NS 1000 MCG/10 ML SYR IV ONE (12:00)
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
--- NOTE | 2016-05-11 13:15 | EKG ---
Date Performed: 05/11/2016 Time Performed: 05:53:22 PTAGE: 40 years EKG: Sinus tachycardia. Normal ECG except for rate NO PREVIOUS TRACING DOCTOR: Fredy Reddy Interpretating Date/Time 05/11/2016 13:13:25
--- NOTE | 2016-05-11 13:25 | HHI.IDPN ---
Subjective Subjective Remarks Notes reviewed D/W RN Just came back from OR Had trach done Continues to have high fevers Highest temp 103+ WBC better Sputum prelim Enterobacter and Staph aureus Creatinine slightly better Antibiotics Meropenem Zyvox Lines PIV Past Medical History Hypercholesterolemia Esophageal stricture, and has had 2 dilation procedures Past Surgical History Esophageal dilation 2 Allergies: Coded Allergies: No Known Allergies (Unverified , 05/01/16) Objective . Vital Signs Date Time Temp Pulse Resp B/P Pulse Ox O2 Delivery O2 Flow Rate FiO2 05/11/16 12:15 99 100 05/11/16 12:00 100.9 109 28 117/55 97 05/11/16 12:00 40 05/11/16 12:00 109 05/11/16 10:00 96 05/11/16 09:15 40 05/11/16 09:06 95 40 05/11/16 08:00 50 05/11/16 08:00 95 05/11/16 08:00 101.5 95 28 122/79 98 05/11/16 06:00 104 05/11/16 04:27 98 50 05/11/16 04:00 102 05/11/16 04:00 101.4 102 28 150/93 98 05/11/16 04:00 50 05/11/16 02:00 92 05/11/16 01:19 97 50 05/11/16 00:00 50 05/11/16 00:00 96 05/11/16 00:00 102.7 96 28 156/86 96 05/10/16 22:43 98 50 05/10/16 22:00 91 05/10/16 21:05 96 50 05/10/16 20:00 100.3 107 28 150/85 95 05/10/16 20:00 107 05/10/16 20:00 50 05/10/16 18:00 97 05/10/16 16:09 96 50 05/10/16 16:00 101.5 98 28 145/81 95 05/10/16 16:00 96 05/10/16 16:00 50 05/10/16 14:00 98 05/10/16 05/10/16 05/11/16 15:00 23:00 07:00 Intake Total 1203 ml 1342 ml 1228 ml Output Total 1800 ml 1825 ml 1675 ml Balance -597 ml -483 ml -447 ml Intake IV Total 509 ml 748 ml 379 ml Tube Feeding 494 ml 474 ml 649 ml Other 200 ml 120 ml 200 ml Output Urine Total 1500 ml 1775 ml 1575 ml Stool Total 300 ml 50 ml 100 ml . Laboratory Tests Test 05/10/16 05/11/16 05:30 05:42 White Blood Count 13.4 TH/MM3 12.3 TH/MM3 Red Blood Count 3.15 MIL/MM3 3.17 MIL/MM3 Hemoglobin 8.5 GM/DL 8.4 GM/DL Hematocrit 25.8 % 26.0 % Mean Corpuscular Volume 82.1 FL 82.0 FL Mean Corpuscular Hemoglobin 26.9 PG 26.6 PG Mean Corpuscular Hemoglobin 32.8 % 32.5 % Concent Red Cell Distribution Width 16.2 % 15.9 % Platelet Count 261 TH/MM3 237 TH/MM3 Mean Platelet Volume 8.1 FL 8.4 FL Neutrophils (%) (Auto) 82.0 % 72.6 % Lymphocytes (%) (Auto) 9.6 % 15.8 % Monocytes (%) (Auto) 6.8 % 5.1 % Eosinophils (%) (Auto) 1.2 % 5.7 % Basophils (%) (Auto) 0.4 % 0.8 % Neutrophils # (Auto) 11.0 TH/MM3 8.9 TH/MM3 Lymphocytes # (Auto) 1.3 TH/MM3 1.9 TH/MM3 Monocytes # (Auto) 0.9 TH/MM3 0.6 TH/MM3 Eosinophils # (Auto) 0.2 TH/MM3 0.7 TH/MM3 Basophils # (Auto) 0.0 TH/MM3 0.1 TH/MM3 CBC Comment AUTO DIFF DIFF FINAL Differential Total Cells 100 Counted Neutrophils % (Manual) 71 % Band Neutrophils % 17 % Lymphocytes % 7 % Monocytes % 5 % Neutrophils # (Manual) 11.8 TH/MM3 Differential Comment FINAL DIFF MANUAL Platelet Estimate NORMAL Platelet Morphology Comment NORMAL Target Cells 1+ Laboratory Tests Test 05/10/16 05/11/16 03:44 05:42 Sodium Level 162 MEQ/L 160 MEQ/L Potassium Level 4.4 MEQ/L 3.9 MEQ/L Chloride Level 128 MEQ/L 126 MEQ/L Carbon Dioxide Level 26.3 MEQ/L 28.4 MEQ/L Anion Gap 8 MEQ/L 6 MEQ/L Blood Urea Nitrogen 39 MG/DL 44 MG/DL Creatinine 1.68 MG/DL 1.56 MG/DL Estimat Glomerular Filtration 45 ML/MIN 50 ML/MIN Rate Random Glucose 202 MG/DL 186 MG/DL Calcium Level 9.1 MG/DL 8.3 MG/DL Total Bilirubin 0.7 MG/DL 0.6 MG/DL Aspartate Amino Transf 78 U/L 44 U/L (AST/SGOT) Alanine Aminotransferase 103 U/L 67 U/L (ALT/SGPT) Alkaline Phosphatase 106 U/L 89 U/L Total Protein 6.8 GM/DL 6.3 GM/DL Albumin 1.6 GM/DL 1.5 GM/DL Microbiology Date/Time Procedure Status Source Growth 05/09/16 10:35 Gram Stain - Final Resulted Sputum Endotracheal 05/09/16 10:35 Sputum Culture - Preliminary Resulted Enterobacter Cloacae Staphylococcus Aureus 05/10/16 05:15 Aerobic Blood Culture - Preliminary Resulted Blood Peripheral NO GROWTH IN 1 DAY 05/10/16 05:15 Anaerobic Blood Culture - Final Resulted Blood Peripheral ONLY AEROBIC CULTURE ORDERED 05/10/16 05:20 Aerobic Blood Culture - Preliminary Resulted Blood Peripheral NO GROWTH IN 1 DAY 05/10/16 05:20 Anaerobic Blood Culture - Preliminary Resulted Blood Peripheral NO GROWTH IN 1 DAY Imaging Chest X-Ray 05/09/16 0600 Signed Impressions: Service Date/Time: Monday, May 09, 2016 04:38 - CONCLUSION: 1. Basilar and perihilar airspace consolidation similar to May 08. Support apparatus unchanged. Heath Awan MD Abdomen X-Ray 05/06/16 0000 Signed Impressions: Service Date/Time: Friday, May 06, 2016 08:11 - CONCLUSION: No evidence of bowel obstruction or ileus.. Kayla Chi MD Head CT 05/05/16 0600 Signed Impressions: Service Date/Time: Thursday, May 05, 2016 04:51 - CONCLUSION: 1. Unchanged exam with areas of parenchymal and subarachnoid hemorrhage and 3 mm of [id number] midline shift. The ventricles remain patent. 2. Right temporal fracture. Nathaniel Dunn Jr., MD Lower Extremity Ultrasound 05/04/16 0000 Signed Impressions: Service Date/Time: April 11:14 - CONCLUSION: 1. Deep venous thrombosis within the right posterior tibial veins. 2. No deep venous thrombosis within the left lower extremity. Jovon Mead MD Pelvis X-Ray 04/28/162156 Signed Impressions: Service Date/Time: Thursday, April 28, 2016 21:44 - CONCLUSION: Negative trauma study. Fidencio Holland MD Chest CT 04/28/162156 Signed Impressions: Service Date/Time: Thursday, April 28, 2016 22:20 - CONCLUSION: 1. Dense consolidation right upper lobe. This could represent aspiration pneumonia and/ or lung contusion. 2. Milder consolidation is present in both posterior medial lung bases with no pneumothorax. Fidencio Holland MD Cervical Spine CT 04/28/162156 Signed Impressions: Service Date/Time: Thursday, April 28, 2016 22:14 - CONCLUSION: Negative trauma CT. Fidencio Holland MD Abdomen/Pelvis CT 04/28/162156 Signed Impressions: Service Date/Time: Thursday, April 28, 2016 22:20 - CONCLUSION: 1. No evidence of visceral injury. 2. Consolidation in both posterior lung bases. Please see chest CT report for further details. Fidencio Holland MD Physical Exam GENERAL: Sedated, on vent. S/P trach SKIN: Cool, moist, no generalized rash, has some edema in extremities HEAD: Normocephalic. Previous ICP monitor site is dry, with no redness or drainage EYES: [place] conjunctiva. Pupils equal round and reactive. No scleral icterus. No injection or drainage. ENT: Nose without bleeding, or purulent drainage. He is orally intubated. NECK:S/P trach, supple CARDIOVASCULAR: Regular rate and rhythm without murmurs, gallops, or rubs. RESPIRATORY: Coarse breath sounds bilaterally. Breath sounds equal bilaterally. No wheezes, rales, or rhonchi. Decreased at the bases. GASTROINTESTINAL: Abdomen soft, nondistended, no reaction to palpation. Bowel sounds are present. No hepato-splenomegaly, or palpable masses. MUSCULOSKELETAL: Extremities without clubbing, cyanosis. Has edema hands and feet. No joint effusion, or edema noted. NEUROLOGICAL: On sedation PSYCH: Unable to assess GENITOURINARY: Garnica in place, urine clear LINE: PIV with no evidence of infection. Assessment & Plan Remarks IMPRESSION Possible sepsis, with high fevers, source? - ?New VAP, CXR looks worse especially on R - on Rx for Enterobacter, Citrobacter and MSSA - UA ok - has mildly elevated LFT - ?line, removed yesterday and WBC slightly better, but still with very high fevers - ?central - would expect to stay high temps and not get better and then go up again - ?drug fever TBI from INTERMEDIATE Respiratory failure DVT RLE RECOMMENDATION Follow new C/S Continue Meropenem - Enterobacter can develop resistance while on Rx Continue Levaquin Continue Zyvox for MRSA coverage Monitor temps Monitor progress If temps continues, add Micafungin D/W Vidhya Trinh MD May 11, 2016 13:25
[2016-05-11] MEDS ORDERED: MIDAZOLAM HCL 2 MG/2 ML VIAL ONE (13:30)
[2016-05-11] MEDS: ENOXAPARIN SODIUM 40 MG/0.4 ML SYRINGE SQ SCH (14:45)
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
[2016-05-11] MEDS: ONDANSETRON HCL 4 MG/2 ML VIAL IV PUSH PRN (22:18)
[2016-05-12] VITALS (19 sets, daily range): BP systolic 115–144; BP diastolic 63–89; PULSE 96–139; RESP 24–28; TEMP 99.8–101.5; O2SAT 93–100
[2016-05-12] MEDS: MEROPENEM INJ 1,000 MG in SODIUM CHLORIDE 0.9% INJ 100 ML IV SCH ×3 (00:06→18:02)
[2016-05-12] MEDS: CHLORHEXIDINE GLUCONATE 2 % 1 PACK (2 CLOTHS) TOP SCH (04:00)
[2016-05-12] MEDS: ACETAMINOPHEN 1000 MG/100 ML VIAL IV PRN ×3 (04:18→18:24)
[2016-05-12 04:40] LABS: BLOOD GAS BASE EXCESS 1.5 mmol/L (-2-2); BLOOD GAS CARBOXYHEMOGLOBIN 1.2 % (0-4); BLOOD GAS HCO3 25 mmol/L (22-26); BLOOD GAS METHEMOGLOBIN 0.6 % (0-2); BLOOD GAS O2 HGB SATURATION 95 % (90-100); BLOOD GAS OXYGEN CONTENT 12.8 Vol % (12.0-20.0); BLOOD GAS PCO2 34 mmHg (38-42); BLOOD GAS PO2 85 mmHg (61-120); BLOOD GAS TOTAL HGB 9.5 G/DL (12.0-16.0); CRITICAL VALUE NO; OXYGEN DEVICE VENTILATOR; TEMP CORR TO 98.6
[2016-05-12 04:41] LABS: DRAW SITE RT RADIAL; FIO2 50 %; NUMBER OF ARTERIAL PUNCTURES 1; STAT NO; ULNAR PULSE PRESENT; VENT SETTINGS PRVC
[2016-05-12 05:16] LABS: HEMATOCRIT 26.1 % (39.0-51.0); MEAN CELL VOLUME 81.7 FL (80.0-100.0); MEAN CORPUSCULAR HEMOGLOBIN 26.8 PG (27.0-34.0); MEAN CORPUSCULAR HGB CONC 32.8 % (32.0-36.0); PLATELET COUNT 262 TH/MM3 (150-450); RED BLOOD COUNT 3.19 MIL/MM3 (4.50-5.90); RED CELL DISTRIBUTION WIDTH 15.9 % (11.6-17.2); WHITE BLOOD COUNT 14.2 TH/MM3 (4.0-11.0)
[2016-05-12 05:17] LABS: HEMO FLAGS AUTO DIFF
[2016-05-12] MEDS: LACTULOSE SYRUP 20 GM/30 ML CUP PO SCH ×4 (05:33→18:00)
[2016-05-12] MEDS: FREE WATER G-TUBE SCH ×4 (05:33→18:00)
[2016-05-12] MEDS: ARTIFICIAL TEARS OPTH SOLN 15 ML BTL EACH EYE SCH ×3 (05:33→21:40)
[2016-05-12 05:39] LABS: ALKALINE PHOSPHATASE 79 U/L (45-117); ALT (GPT) 57 U/L (12-78); ANION GAP 7 MEQ/L (5-15); AST (GOT) 46 U/L (15-37); BICARBONATE 27.3 MEQ/L (21.0-32.0); BLOOD UREA NITROGEN 43 MG/DL (7-18); CHLORIDE 127 MEQ/L (98-107); GLOMERULAR FILTRATION RATE 46 ML/MIN (>89); POTASSIUM 3.9 MEQ/L (3.5-5.1); TOTAL BILIRUBIN ADULT 0.7 MG/DL (0.2-1.0)
[2016-05-12 05:47] LABS: BANDS 1 % (0-6); NEUTROPHIL # MANUAL DIFF 11.6 TH/MM3 (1.8-7.7); POLYS (SEG NEUTROPHILS) 81 % (16-70); WBC DIFF SAMPLE 100
[2016-05-12 05:49] LABS: PLATELET ESTIMATE SMEAR NORMAL (NORMAL); PLATELET MORPHOLOGY NORMAL (NORMAL); SCAN/DIFF FINAL DIFF MANUAL
[2016-05-12 06:29] LABS: SODIUM (NA) 161 MEQ/L (136-145)
[2016-05-12] MEDS: INSULIN NovoLIN REGULAR SUPPLEMENTAL SCALE SQ SCH ×4 (06:31→21:38)
[2016-05-12] MEDS: CHLORHEXIDINE 0.12% (ORAL KIT) 15 ML CUP MT SCH ×2 (07:43→20:00)
[2016-05-12] MEDS: PANTOPRAZOLE SODIUM 40 MG VIAL IV SCH (07:44)
[2016-05-12] MEDS: POLYETHYLENE GLYCOL 17 GM PKG PO SCH ×2 (07:45→21:00)
[2016-05-12] MEDS: PROPRANOLOL HCL 40 MG TAB PO SCH ×2 (07:45→21:39)
[2016-05-12] MEDS: COLLAGENASE OINT 30 GM TUBE TOP SCH (07:45)
[2016-05-12] MEDS: BISACODYL 10 MG SUPP RECTAL SCH (07:45)
[2016-05-12] MEDS: LINEZOLID 600 MG TAB PO SCH (07:45)
[2016-05-12] MEDS: SODIUM CHLORIDE 0.9% FLUSH 5 ML FLUSH IV FLUSH SCH ×2 (07:45→21:00)
[2016-05-12] MEDS: DOCUSATE SODIUM 50 MG/SENNA 8.6 MG TAB PO SCH ×2 (07:45→21:00)
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
[2016-05-12] MEDS: SODIUM CHLOR 0.45% 1000 ML INJ 1,000 ML IV SCH (10:18)
[2016-05-12] MEDS: LEVOFLOXACIN 500 MG PREMIX INJ 100 ML IV SCH (10:18)
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
--- NOTE | 2016-05-12 14:00 | HHI.IDPN ---
Subjective Subjective Remarks Notes reviewed Still with temps, not as high PEG placement pending S/P trach 05/01 On the vent More awake Sputum sensitive Enterobacter and MSSA Antibiotics Meropenem Zyvox Levaquin Lines PIV Past Medical History Hypercholesterolemia Esophageal stricture, and has had 2 dilation procedures Past Surgical History Esophageal dilation 2 Allergies: Coded Allergies: No Known Allergies (Unverified , 05/01/16) Objective . Vital Signs Date Time Temp Pulse Resp B/P Pulse Ox O2 Delivery O2 Flow Rate FiO2 05/12/16 12:00 45 05/12/16 12:00 101.1 112 27 137/82 100 05/12/16 12:00 112 05/12/16 10:43 100 45 05/12/16 10:08 45 05/12/16 10:00 103 05/12/16 08:00 45 05/12/16 08:00 101.1 96 28 144/85 100 05/12/16 08:00 97 05/12/16 07:49 100 45 05/12/16 07:30 45 05/12/16 06:00 100 05/12/16 04:00 40 05/12/16 04:00 101.5 102 28 136/89 100 05/12/16 04:00 102 05/12/16 03:59 100 50 05/12/16 02:00 110 05/12/16 01:46 99 50 05/12/16 00:00 40 05/12/16 00:00 100.1 103 28 134/82 100 05/12/16 00:00 103 05/11/16 22:00 105 05/11/16 21:20 97 50 05/11/16 20:00 100.2 103 28 136/87 100 05/11/16 20:00 40 05/11/16 20:00 103 05/11/16 18:00 106 05/11/16 16:51 96 50 05/11/16 16:00 109 05/11/16 16:00 101.0 108 28 127/85 97 05/11/16 16:00 40 05/11/16 15:40 40 05/11/16 14:27 100 50 05/11/16 14:00 122 05/11/16 05/11/16 05/12/16 15:00 23:00 07:00 Intake Total 680 ml 710 ml 714 ml Output Total 1650 ml 1900 ml 1350 ml Balance -970 ml -1190 ml -636 ml Intake IV Total 680 ml 710 ml 714 ml Tube Feeding 0 ml Output Urine Total 1550 ml 1750 ml 1300 ml Stool Total 100 ml 150 ml 50 ml . Laboratory Tests Test 05/11/16 05/12/16 05:42 04:47 White Blood Count 12.3 TH/MM3 14.2 TH/MM3 Red Blood Count 3.17 MIL/MM3 3.19 MIL/MM3 Hemoglobin 8.4 GM/DL 8.5 GM/DL Hematocrit 26.0 % 26.1 % Mean Corpuscular Volume 82.0 FL 81.7 FL Mean Corpuscular Hemoglobin 26.6 PG 26.8 PG Mean Corpuscular Hemoglobin 32.5 % 32.8 % Concent Red Cell Distribution Width 15.9 % 15.9 % Platelet Count 237 TH/MM3 262 TH/MM3 Mean Platelet Volume 8.4 FL 9.4 FL Neutrophils (%) (Auto) 72.6 % % Lymphocytes (%) (Auto) 15.8 % % Monocytes (%) (Auto) 5.1 % % Eosinophils (%) (Auto) 5.7 % % Basophils (%) (Auto) 0.8 % % Neutrophils # (Auto) 8.9 TH/MM3 TH/MM3 Lymphocytes # (Auto) 1.9 TH/MM3 TH/MM3 Monocytes # (Auto) 0.6 TH/MM3 TH/MM3 Eosinophils # (Auto) 0.7 TH/MM3 TH/MM3 Basophils # (Auto) 0.1 TH/MM3 TH/MM3 CBC Comment DIFF FINAL AUTO DIFF Differential Comment FINAL DIFF MANUAL Differential Total Cells 100 Counted Neutrophils % (Manual) 81 % Band Neutrophils % 1 % Lymphocytes % 15 % Monocytes % 3 % Neutrophils # (Manual) 11.6 TH/MM3 Platelet Estimate NORMAL Platelet Morphology Comment NORMAL Red Cell Morphology Comment NORMAL Laboratory Tests Test 05/11/16 05/12/16 05:42 04:47 Sodium Level 160 MEQ/L 161 MEQ/L Potassium Level 3.9 MEQ/L 3.9 MEQ/L Chloride Level 126 MEQ/L 127 MEQ/L Carbon Dioxide Level 28.4 MEQ/L 27.3 MEQ/L Anion Gap 6 MEQ/L 7 MEQ/L Blood Urea Nitrogen 44 MG/DL 43 MG/DL Creatinine 1.56 MG/DL 1.67 MG/DL Estimat Glomerular Filtration 50 ML/MIN 46 ML/MIN Rate Random Glucose 186 MG/DL 123 MG/DL Calcium Level 8.3 MG/DL 8.3 MG/DL Total Bilirubin 0.6 MG/DL 0.7 MG/DL Aspartate Amino Transf 44 U/L 46 U/L (AST/SGOT) Alanine Aminotransferase 67 U/L 57 U/L (ALT/SGPT) Alkaline Phosphatase 89 U/L 79 U/L Total Protein 6.3 GM/DL 6.8 GM/DL Albumin 1.5 GM/DL 1.7 GM/DL Microbiology Date/Time Procedure Status Source Growth 05/10/16 05:15 Aerobic Blood Culture - Preliminary Resulted Blood Peripheral NO GROWTH IN 2 DAYS 05/10/16 05:15 Anaerobic Blood Culture - Final Resulted Blood Peripheral ONLY AEROBIC CULTURE ORDERED 05/10/16 05:20 Aerobic Blood Culture - Preliminary Resulted Blood Peripheral NO GROWTH IN 2 DAYS 05/10/16 05:20 Anaerobic Blood Culture - Preliminary Resulted Blood Peripheral NO GROWTH IN 2 DAYS Imaging Chest X-Ray 05/09/16 06 Signed Impressions: Service Date/Time: Monday, May 09, 2016 04:38 - CONCLUSION: 1. Basilar and perihilar airspace consolidation similar to May 08. Support apparatus unchanged. Heath Awan MD Abdomen X-Ray 05/06/16 0000 Signed Impressions: Service Date/Time: Friday, May 06, 2016 08:11 - CONCLUSION: No evidence of bowel obstruction or ileus.. Kayla Chi MD Head CT 05/05/16 0600 Signed Impressions: Service Date/Time: Thursday, May 05, 2016 04:51 - CONCLUSION: 1. Unchanged exam with areas of parenchymal and subarachnoid hemorrhage and 3 mm of [id number] midline shift. The ventricles remain patent. 2. Right temporal fracture. Nathaniel Dunn Jr., MD Lower Extremity Ultrasound 05/04/16 0000 Signed Impressions: Service Date/Time: April 11:14 - CONCLUSION: 1. Deep venous thrombosis within the right posterior tibial veins. 2. No deep venous thrombosis within the left lower extremity. Jovon Mead MD Pelvis X-Ray 04/28/162156 Signed Impressions: Service Date/Time: Thursday, April 28, 2016 21:44 - CONCLUSION: Negative trauma study. Fidencio Holland MD Chest CT 04/28/162156 Signed Impressions: Service Date/Time: Thursday, April 28, 2016 22:20 - CONCLUSION: 1. Dense consolidation right upper lobe. This could represent aspiration pneumonia and/ or lung contusion. 2. Milder consolidation is present in both posterior medial lung bases with no pneumothorax. Fidencio Holland MD Cervical Spine CT 04/28/162156 Signed Impressions: Service Date/Time: Thursday, April 28, 2016 22:14 - CONCLUSION: Negative trauma CT. Fidencio Holland MD Abdomen/Pelvis CT 04/28/162156 Signed Impressions: Service Date/Time: Thursday, April 28, 2016 22:20 - CONCLUSION: 1. No evidence of visceral injury. 2. Consolidation in both posterior lung bases. Please see chest CT report for further details. Fidencio Holland MD Physical Exam GENERAL: Awake, ?occ focusing, on vent. S/P trach. NAD SKIN: Cool, moist, no generalized rash, has some edema in extremities HEAD: Normocephalic. Previous ICP monitor site is dry, with no redness or drainage EYES: Nixon conjunctiva. Pupils equal round and reactive. No scleral icterus. No injection or drainage. ENT: Nose without bleeding, or purulent drainage. He is orally intubated. NECK: S/P trach site ok, supple CARDIOVASCULAR: Regular rate and rhythm without murmurs, gallops, or rubs. RESPIRATORY: Coarse breath sounds bilaterally. Breath sounds equal bilaterally. No wheezes, rales, or rhonchi. Decreased at the bases. GASTROINTESTINAL: Abdomen soft, nondistended, no reaction to palpation. Bowel sounds are present. No hepato-splenomegaly, or palpable masses. MUSCULOSKELETAL: Extremities without clubbing, cyanosis. Has edema hands and feet. No joint effusion, or edema noted. NEUROLOGICAL: Away, occ focusing, not following, not tracking PSYCH: Unable to assess GENITOURINARY: Garnica in place, urine clear LINE: PIV with no evidence of infection. Assessment & Plan Remarks IMPRESSION Possible sepsis, with high fevers, source? - ?New VAP, CXR looks worse especially on R - on Rx for Enterobacter, Citrobacter and MSSA - UA ok - has mildly elevated LFT - ?line, removed yesterday and WBC slightly better, but still with very high fevers - ?central - would expect to stay high temps and not get better and then go up again - ?drug fever TBI from DETENTION Respiratory failure DVT RLE RECOMMENDATION Stop Meropenem Continue Levaquin Stop Zyvox Monitor temps Monitor progress Spoke with mother Vidhya Wells MD May 12, 2016 14:00
[2016-05-12] MEDS: ENOXAPARIN SODIUM 40 MG/0.4 ML SYRINGE SQ SCH (14:48)
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
[2016-05-12] MEDS ORDERED: DEXMEDETOMIDINE INJ 50 ML IV SCH (19:15)
[2016-05-12] MEDS: DEXMEDETOMIDINE 200 MCG in NS 50 ML/ ADMIX IV SCH (19:39)
[2016-05-13] VITALS (18 sets, daily range): BP systolic 103–130; BP diastolic 58–85; PULSE 70–102; RESP 24–28; TEMP 98.6–101.1; O2SAT 93–100
[2016-05-13] MEDS: MEROPENEM INJ 1,000 MG in SODIUM CHLORIDE 0.9% INJ 100 ML IV SCH ×4 (00:42→15:58)
[2016-05-13] MEDS: DEXMEDETOMIDINE 200 MCG in NS 50 ML/ ADMIX IV SCH ×7 (00:42→22:59)
[2016-05-13] MEDS: ONDANSETRON HCL 4 MG/2 ML VIAL IV PUSH PRN ×2 (01:14→08:33)
[2016-05-13] MEDS: SODIUM CHLOR 0.45% 1000 ML INJ 1,000 ML IV SCH (03:25)
[2016-05-13] MEDS: CHLORHEXIDINE GLUCONATE 2 % 1 PACK (2 CLOTHS) TOP SCH (03:59)
[2016-05-13] MEDS: ACETAMINOPHEN 1000 MG/100 ML VIAL IV PRN (04:14)
[2016-05-13 04:22] LABS: AUTOMATED NEUTROPHIL # 10.2 TH/MM3 (1.8-7.7); BASOPHIL # 0.1 TH/MM3 (0-0.2); BASOPHIL % 0.6 % (0.0-2.0); EOSINOPHIL # 0.8 TH/MM3 (0-0.4); EOSINOPHIL % 6.3 % (0.0-4.0); HEMATOCRIT 25.7 % (39.0-51.0); HEMO FLAGS DIFF FINAL; LYMPH % 9.5 % (9.0-44.0); LYMPHOCYTE # 1.2 TH/MM3 (1.0-4.8); MEAN CORPUSCULAR HEMOGLOBIN 26.5 PG (27.0-34.0); MONO % 4.4 % (0.0-8.0); NEUT % 79.2 % (16.0-70.0); PLATELET COUNT 256 TH/MM3 (150-450); RED BLOOD COUNT 3.09 MIL/MM3 (4.50-5.90); RED CELL DISTRIBUTION WIDTH 15.8 % (11.6-17.2); WHITE BLOOD COUNT 12.9 TH/MM3 (4.0-11.0)
[2016-05-13 04:46] LABS: ALKALINE PHOSPHATASE 91 U/L (45-117); ALT (GPT) 61 U/L (12-78); ANION GAP 6 MEQ/L (5-15); AST (GOT) 63 U/L (15-37); BICARBONATE 27.5 MEQ/L (21.0-32.0); BLOOD UREA NITROGEN 41 MG/DL (7-18); CHLORIDE 129 MEQ/L (98-107); GLOMERULAR FILTRATION RATE 46 ML/MIN (>89); MAGNESIUM 3.2 MG/DL (1.5-2.5); POTASSIUM 3.9 MEQ/L (3.5-5.1); TOTAL BILIRUBIN ADULT 0.5 MG/DL (0.2-1.0)
[2016-05-13 04:56] LABS: SODIUM (NA) 162 MEQ/L (136-145)
--- NOTE | 2016-05-13 05:06 | RADRPT ---
EXAM DATE/TIME: 05/13/2016 03:55 [facility] COMPARISON: CHEST SINGLE AP, May 09, 2016, 4:38. INDICATIONS : Shortness of breath. MEDICAL HISTORY : None. SURGICAL HISTORY : None. ENCOUNTER: Subsequent ACUITY: 2 weeks PAIN SCORE: Non-responsive. LOCATION: Bilateral chest FINDINGS: Portable AP view the chest demonstrates a normal-sized cardiac silhouette. Tracheostomy is now presen t and a nasogastric tube is in place. There is bilateral mid and lower lung zone airspace consolidati on with possible small pleural effusions bilaterally. No pneumothorax is visualized. Left subclavian central line has been removed. CONCLUSION: Stable bilateral mid and lower lung zone airspace consolidation with possible small bilateral pleural effusions. Emerson Serrano MD on May 13, 2016 at 5:04 Board Certified Radiologist. This report was verified electronically.
[2016-05-13] MEDS: ARTIFICIAL TEARS OPTH SOLN 15 ML BTL EACH EYE SCH ×3 (06:00→22:00)
[2016-05-13] MEDS: LACTULOSE SYRUP 20 GM/30 ML CUP PO SCH ×4 (06:00→15:59)
[2016-05-13] MEDS: FREE WATER G-TUBE SCH ×5 (06:00→20:00)
[2016-05-13] MEDS: INSULIN NovoLIN REGULAR SUPPLEMENTAL SCALE SQ SCH ×4 (06:42→22:05)
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
[2016-05-13] MEDS: PANTOPRAZOLE SODIUM 40 MG VIAL IV SCH (08:33)
[2016-05-13] MEDS: PROPRANOLOL HCL 40 MG TAB PO SCH ×2 (08:33→22:00)
[2016-05-13] MEDS: CHLORHEXIDINE 0.12% (ORAL KIT) 15 ML CUP MT SCH ×2 (08:33→20:00)
[2016-05-13] MEDS: LEVOFLOXACIN 750 MG PREMIX INJ 150 ML IV SCH (08:33)
[2016-05-13] MEDS: POLYETHYLENE GLYCOL 17 GM PKG PO SCH ×2 (08:34→21:00)
[2016-05-13] MEDS: DOCUSATE SODIUM 50 MG/SENNA 8.6 MG TAB PO SCH ×2 (08:34→21:00)
[2016-05-13] MEDS: BISACODYL 10 MG SUPP RECTAL SCH (08:34)
[2016-05-13] MEDS: COLLAGENASE OINT 30 GM TUBE TOP SCH (08:34)
[2016-05-13] MEDS: SODIUM CHLORIDE 0.9% FLUSH 5 ML FLUSH IV FLUSH SCH ×2 (09:00→20:25)
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
[2016-05-13] MEDS: MIDAZOLAM 100 MG/ML INJ 100 ML IV SCH (14:35)
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
[2016-05-13] MEDS: ENOXAPARIN SODIUM 40 MG/0.4 ML SYRINGE SQ SCH (15:55)
[2016-05-13] MEDS ORDERED: Vancomycin Consult Pharmacy 1 EA OTHER SCH (18:00)
[2016-05-13] MEDS: VANCOMYCIN INJ 1,600 MG in SODIUM CHLORID 0.9% 500 ML INJ 500 ML IV SCH (20:24)
[2016-05-13] MEDS: PIPERACIL-TAZO 4.5 GM PREMIX 100 ML IV SCH (20:24)
[2016-05-13] MEDS: fentaNYL DRIP 250 ML IV SCH (20:29)
[2016-05-13 23:08] LABS: BLOOD, URINE SMALL (NEG); GLUCOSE,URINE NEG (NEG); KETONE, URINE NEG (NEG); MUCUS URINE FEW /lpf (OCC); NITRITE,URINE NEG (NEG); PH, URINE 5.5 (5.0-8.5); SQUAMOUS EPITHELIAL CELL URINE <1 /hpf (0-5); URINE COLOR YELLOW (YELLW/STRAW)
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
[2016-05-13 23:18] LABS: COMMENT (UR) CATH-CULT NOT IND; CULTURE IF INDICATED CATH CULTURE NOT IND
[2016-05-14] VITALS (21 sets, daily range): BP systolic 117–143; BP diastolic 71–81; PULSE 82–117; RESP 19–25; TEMP 98.8–103.1; O2SAT 94–100
[2016-05-14] MEDS: PIPERACIL-TAZO 4.5 GM PREMIX 100 ML IV SCH ×4 (00:05→17:52)
[2016-05-14] MEDS: ACETAMINOPHEN 1000 MG/100 ML VIAL IV PRN ×2 (00:21→16:49)
[2016-05-14] MEDS: DEXMEDETOMIDINE 200 MCG in NS 50 ML/ ADMIX IV SCH ×6 (01:42→23:20)
[2016-05-14] MEDS: CHLORHEXIDINE GLUCONATE 2 % 1 PACK (2 CLOTHS) TOP SCH (04:00)
[2016-05-14] MEDS: FREE WATER G-TUBE SCH ×6 (04:00→20:34)
[2016-05-14 04:25] LABS: AUTOMATED NEUTROPHIL # 8.8 TH/MM3 (1.8-7.7); BASOPHIL # 0.1 TH/MM3 (0-0.2); BASOPHIL % 0.4 % (0.0-2.0); EOSINOPHIL # 0.9 TH/MM3 (0-0.4); EOSINOPHIL % 7.5 % (0.0-4.0); HEMATOCRIT 23.7 % (39.0-51.0); HEMO FLAGS DIFF FINAL; LYMPH % 12.7 % (9.0-44.0); LYMPHOCYTE # 1.5 TH/MM3 (1.0-4.8); MEAN CELL VOLUME 85.2 FL (80.0-100.0); MEAN CORPUSCULAR HEMOGLOBIN 27.1 PG (27.0-34.0); MEAN CORPUSCULAR HGB CONC 31.8 % (32.0-36.0); MONO % 5.3 % (0.0-8.0); NEUT % 74.1 % (16.0-70.0); PLATELET COUNT 252 TH/MM3 (150-450); RED BLOOD COUNT 2.78 MIL/MM3 (4.50-5.90); RED CELL DISTRIBUTION WIDTH 16.3 % (11.6-17.2); WHITE BLOOD COUNT 11.9 TH/MM3 (4.0-11.0)
[2016-05-14 04:47] LABS: AST (GOT) 85 U/L (15-37); BICARBONATE 26.7 MEQ/L (21.0-32.0); BLOOD UREA NITROGEN 42 MG/DL (7-18); GLOMERULAR FILTRATION RATE 46 ML/MIN (>89)
[2016-05-14 04:50] LABS: ALKALINE PHOSPHATASE 114 U/L (45-117); ALT (GPT) 70 U/L (12-78); TOTAL BILIRUBIN ADULT 0.5 MG/DL (0.2-1.0)
[2016-05-14] MEDS: LACTULOSE SYRUP 20 GM/30 ML CUP PO SCH ×3 (05:02→11:39)
[2016-05-14] MEDS: ARTIFICIAL TEARS OPTH SOLN 15 ML BTL EACH EYE SCH ×3 (05:03→22:00)
[2016-05-14 05:09] LABS: ANION GAP 6 MEQ/L (5-15); CHLORIDE 125 MEQ/L (98-107); POTASSIUM 4.1 MEQ/L (3.5-5.1)
--- NOTE | 2016-05-14 05:10 | RADRPT ---
EXAM DATE/TIME: 05/14/2016 04:03 [place] COMPARISON: CHEST SINGLE AP, May 13, 2016, 3:55. INDICATIONS : Shortness of breath. MEDICAL HISTORY : None. SURGICAL HISTORY : Tracheostomy. ENCOUNTER: Subsequent ACUITY: 2 weeks PAIN SCORE: Non-responsive. LOCATION: Bilateral chest FINDINGS: Portable AP view of the chest demonstrates a normal-sized cardiac silhouette. Tracheostomy and nasoga stric tube remain present. There is airspace consolidation in the mid and lower lung zones bilaterall y with bilateral pleural-based opacities. No pneumothorax is visualized. CONCLUSION: Stable chest x-ray with bilateral airspace consolidation and suspected pleural effusions. Emerson Serrano MD on May 14, 2016 at 5:08 Board Certified Radiologist. This report was verified electronically.
[2016-05-14 05:14] LABS: SODIUM (NA) 158 MEQ/L (136-145)
[2016-05-14 05:38] LABS: BLOOD GAS BASE EXCESS 1.7 mmol/L (-2-2); BLOOD GAS HCO3 26 mmol/L (22-26); BLOOD GAS METHEMOGLOBIN 0.7 % (0-2); BLOOD GAS O2 HGB SATURATION 95 % (90-100); BLOOD GAS OXYGEN CONTENT 10.4 Vol % (12.0-20.0); BLOOD GAS PCO2 39 mmHg (38-42); BLOOD GAS PO2 90 mmHg (61-120); BLOOD GAS TOTAL HGB 7.6 G/DL (12.0-16.0); CRITICAL VALUE NO; OXYGEN DEVICE VENTILATOR; TEMP CORR TO 98.6
[2016-05-14 05:39] LABS: DRAW SITE RT RADIAL; FIO2 60 %; NUMBER OF ARTERIAL PUNCTURES 1; STAT NO; ULNAR PULSE PRESENT; VENT SETTINGS AC16/600/8PEEP
[2016-05-14] MEDS: INSULIN NovoLIN REGULAR SUPPLEMENTAL SCALE SQ SCH ×4 (07:00→20:53)
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
[2016-05-14] MEDS: POLYETHYLENE GLYCOL 17 GM PKG PO SCH ×2 (09:00→20:34)
[2016-05-14] MEDS: DOCUSATE SODIUM 50 MG/SENNA 8.6 MG TAB PO SCH ×2 (09:00→20:35)
[2016-05-14] MEDS: BISACODYL 10 MG SUPP RECTAL SCH (09:00)
[2016-05-14] MEDS: SODIUM CHLORIDE 0.9% FLUSH 5 ML FLUSH IV FLUSH SCH ×2 (09:00→20:35)
[2016-05-14] MEDS: PROPRANOLOL HCL 40 MG TAB PO SCH ×2 (09:17→20:34)
[2016-05-14] MEDS: LEVOFLOXACIN 750 MG PREMIX INJ 150 ML IV SCH (09:17)
[2016-05-14] MEDS: PANTOPRAZOLE SODIUM 40 MG VIAL IV SCH (09:17)
[2016-05-14] MEDS: CHLORHEXIDINE 0.12% (ORAL KIT) 15 ML CUP MT SCH ×2 (09:18→20:35)
[2016-05-14] MEDS: COLLAGENASE OINT 30 GM TUBE TOP SCH (09:19)
[2016-05-14] MEDS: ONDANSETRON HCL 4 MG/2 ML VIAL IV PUSH PRN ×2 (09:46→16:03)
[2016-05-14] MEDS: VANCOMYCIN INJ 1,600 MG in SODIUM CHLORID 0.9% 500 ML INJ 500 ML IV SCH ×2 (11:38→20:34)
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
[2016-05-14] MEDS ORDERED: FUROSEMIDE 20 MG/2 ML VIAL IV PUSH ONE (12:30)
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
[2016-05-14] MEDS: ENOXAPARIN SODIUM 40 MG/0.4 ML SYRINGE SQ SCH (15:38)
[2016-05-14] MEDS: RESP: ALBUTEROL 2.5 MG/IPRATROPIUM 0.5 MG NEB (SCH) NEB ×2 (15:49→19:51)
[2016-05-14] MEDS: ACETAMINOPHEN 325 MG TAB PO PRN (23:11)
[2016-05-14] MEDS ORDERED: diphenhydrAMINE HCL 50 MG/ML VIAL IV SCH (23:15)
[2016-05-14] MEDS: fentaNYL DRIP 250 ML IV SCH (23:20)
[2016-05-15] VITALS (17 sets, daily range): BP systolic 105–128; BP diastolic 64–82; PULSE 80–108; RESP 19–26; TEMP 99.4–101.1; O2SAT 93–100
[2016-05-15] MEDS: FREE WATER G-TUBE SCH ×7 (02:04→22:30)
[2016-05-15] MEDS: PIPERACIL-TAZO 4.5 GM PREMIX 100 ML IV SCH ×2 (02:04→06:02)
[2016-05-15] MEDS: DEXMEDETOMIDINE 200 MCG in NS 50 ML/ ADMIX IV SCH ×2 (02:58→07:32)
[2016-05-15] MEDS: CHLORHEXIDINE GLUCONATE 2 % 1 PACK (2 CLOTHS) TOP SCH (04:00)
[2016-05-15] MEDS: RESP: ALBUTEROL 2.5 MG/IPRATROPIUM 0.5 MG NEB (SCH) NEB ×4 (04:46→20:56)
[2016-05-15 05:51] LABS: BLOOD GAS BASE EXCESS 1.6 mmol/L (-2-2); BLOOD GAS CARBOXYHEMOGLOBIN 1.2 % (0-4); BLOOD GAS HCO3 25 mmol/L (22-26); BLOOD GAS METHEMOGLOBIN 0.8 % (0-2); BLOOD GAS O2 HGB SATURATION 95 % (90-100); BLOOD GAS PCO2 36 mmHg (38-42); BLOOD GAS PO2 87 mmHg (61-120); BLOOD GAS TOTAL HGB 11.9 G/DL (12.0-16.0); TEMP CORR TO 98.6
[2016-05-15 05:52] LABS: CRITICAL VALUE NO; DRAW SITE RT RADIAL; FIO2 50 %; NUMBER OF ARTERIAL PUNCTURES 1; OXYGEN DEVICE VENTILATOR; STAT NO; ULNAR PULSE PRESENT; VENT SETTINGS PRVC/AC
[2016-05-15] MEDS: ARTIFICIAL TEARS OPTH SOLN 15 ML BTL EACH EYE SCH ×3 (06:00→22:30)
[2016-05-15 06:15] LABS: AUTOMATED NEUTROPHIL # 10.6 TH/MM3 (1.8-7.7); BASOPHIL # 0.2 TH/MM3 (0-0.2); BASOPHIL % 1.3 % (0.0-2.0); EOSINOPHIL # 0.9 TH/MM3 (0-0.4); EOSINOPHIL % 6.2 % (0.0-4.0); HEMO FLAGS DIFF FINAL; LYMPHOCYTE # 1.9 TH/MM3 (1.0-4.8); MEAN CELL VOLUME 83.7 FL (80.0-100.0); MEAN CORPUSCULAR HEMOGLOBIN 26.7 PG (27.0-34.0); MEAN CORPUSCULAR HGB CONC 31.9 % (32.0-36.0); MONO % 5.7 % (0.0-8.0); NEUT % 73.8 % (16.0-70.0); PLATELET COUNT 324 TH/MM3 (150-450); RED BLOOD COUNT 3.23 MIL/MM3 (4.50-5.90); RED CELL DISTRIBUTION WIDTH 15.8 % (11.6-17.2); WHITE BLOOD COUNT 14.4 TH/MM3 (4.0-11.0)
--- NOTE | 2016-05-15 06:20 | RADRPT ---
EXAM DATE/TIME: 05/15/2016 05:06 [place] COMPARISON: CHEST SINGLE AP, May 14, 2016, 4:03. INDICATIONS : Shortness of breath, possible pulmonary disease. MEDICAL HISTORY : None. SURGICAL HISTORY : Tracheostomy ENCOUNTER: Subsequent ACUITY: 2 weeks PAIN SCORE: Non-responsive. LOCATION: Bilateral chest FINDINGS: A single portable frontal view of chest shows no significant change. Bilateral pulmonary infiltrates and small effusions are noted. Heart is mildly enlarged. Tracheostomy tube. Nasogastric tube. CONCLUSION: Unchanged bilateral pulmonary infiltrates and small effusions. Nathaniel Dunn Jr., MD on May 15, 2016 at 6:17 Board Certified Radiologist. This report was verified electronically.
[2016-05-15 06:33] LABS: ALKALINE PHOSPHATASE 107 U/L (45-117); ALT (GPT) 67 U/L (12-78); ANION GAP 8 MEQ/L (5-15); AST (GOT) 61 U/L (15-37); BICARBONATE 26.2 MEQ/L (21.0-32.0); BLOOD UREA NITROGEN 34 MG/DL (7-18); CHLORIDE 124 MEQ/L (98-107); GLOMERULAR FILTRATION RATE 48 ML/MIN (>89); MAGNESIUM 2.8 MG/DL (1.5-2.5); TOTAL BILIRUBIN ADULT 0.6 MG/DL (0.2-1.0)
[2016-05-15 06:43] LABS: SODIUM (NA) 158 MEQ/L (136-145)
[2016-05-15] MEDS: INSULIN NovoLIN REGULAR SUPPLEMENTAL SCALE SQ SCH ×4 (06:44→21:00)
[2016-05-15] MEDS ORDERED: PHARMACY ORDERED LAB ONE (07:45)
[2016-05-15] MEDS: POLYETHYLENE GLYCOL 17 GM PKG PO SCH ×2 (09:00→21:00)
[2016-05-15] MEDS: BISACODYL 10 MG SUPP RECTAL SCH (09:00)
[2016-05-15] MEDS: VANCOMYCIN INJ 1,600 MG in SODIUM CHLORID 0.9% 500 ML INJ 500 ML IV SCH (09:06)
[2016-05-15] MEDS: PANTOPRAZOLE SODIUM 40 MG VIAL IV SCH (09:06)
[2016-05-15] MEDS: CHLORHEXIDINE 0.12% (ORAL KIT) 15 ML CUP MT SCH ×2 (09:06→20:05)
[2016-05-15] MEDS: SODIUM CHLORIDE 0.9% FLUSH 5 ML FLUSH IV FLUSH SCH ×2 (09:07→20:05)
[2016-05-15] MEDS: DOCUSATE SODIUM 50 MG/SENNA 8.6 MG TAB PO SCH ×2 (09:07→21:00)
[2016-05-15] MEDS: PROPRANOLOL HCL 40 MG TAB PO SCH ×2 (09:07→21:00)
[2016-05-15] MEDS ORDERED: BUMETANIDE INJ 1 MG/4 ML VIAL IV PUSH ONE ×2 (10:00→12:15)
--- NOTE | 2016-05-15 10:47 | HHI.IDPN ---
Subjective Subjective Remarks Notes reviewed Continues to have high fevers - went up to 103 BP ok On the vent Nothing new in C/S Vanco and Zosyn restarted this weekend CXR no change in infiltrates For PEG placement He is awake and tracking and focusing Antibiotics Levaquin Vanco Zosyn Lines PIV Past Medical History Reviewed Allergies: Coded Allergies: No Known Allergies (Unverified , 05/01/16) Objective . Vital Signs Date Time Temp Pulse Resp B/P Pulse Ox O2 Delivery O2 Flow Rate FiO2 05/15/16 07:53 100 45 05/15/16 06:00 83 05/15/16 04:45 97 50 05/15/16 04:00 50 05/15/16 04:00 100.1 83 20 117/71 100 05/15/16 04:00 83 05/15/16 02:00 86 05/15/16 00:14 97 50 05/15/16 00:00 50 05/15/16 00:00 87 05/15/16 00:00 100.6 80 19 105/64 100 05/14/16 22:05 99.8 86 23 125/74 100 05/14/16 22:00 86 05/14/16 20:00 50 05/14/16 20:00 98.8 92 23 124/71 100 05/14/16 20:00 92 05/14/16 19:49 94 50 05/14/16 18:00 94 05/14/16 16:00 117 05/14/16 16:00 50 05/14/16 16:00 103.0 94 25 143/78 100 05/14/16 15:53 100 50 05/14/16 14:00 94 05/14/16 12:00 102.7 92 22 135/81 100 05/14/16 12:00 92 05/14/16 12:00 50 05/14/16 10:59 94 50 05/14/16 05/14/16 05/15/16 15:00 23:00 07:00 Intake Total 1923 ml 1867 ml 966 ml Output Total 1600 ml 2400 ml 1500 ml Balance 323 ml -533 ml -534 ml Intake IV Total 870 ml 786 ml 716 ml Tube Feeding 453 ml 481 ml 0 ml Packed Cells 250 ml Other 600 ml 600 ml 0 ml Output Urine Total 1550 ml 2300 ml 1350 ml Stool Total 50 ml 100 ml 150 ml Tube Feeding Residual Discard 0 ml 0 ml 0 ml . Laboratory Tests Test 05/14/16 05/15/16 03:44 05:53 White Blood Count 11.9 TH/MM3 14.4 TH/MM3 Red Blood Count 2.78 MIL/MM3 3.23 MIL/MM3 Hemoglobin 7.5 GM/DL 8.6 GM/DL Hematocrit 23.7 % 27.0 % Mean Corpuscular Volume 85.2 FL 83.7 FL Mean Corpuscular Hemoglobin 27.1 PG 26.7 PG Mean Corpuscular Hemoglobin 31.8 % 31.9 % Concent Red Cell Distribution Width 16.3 % 15.8 % Platelet Count 252 TH/MM3 324 TH/MM3 Mean Platelet Volume 9.6 FL 9.6 FL Neutrophils (%) (Auto) 74.1 % 73.8 % Lymphocytes (%) (Auto) 12.7 % 13.0 % Monocytes (%) (Auto) 5.3 % 5.7 % Eosinophils (%) (Auto) 7.5 % 6.2 % Basophils (%) (Auto) 0.4 % 1.3 % Neutrophils # (Auto) 8.8 TH/MM3 10.6 TH/MM3 Lymphocytes # (Auto) 1.5 TH/MM3 1.9 TH/MM3 Monocytes # (Auto) 0.6 TH/MM3 0.8 TH/MM3 Eosinophils # (Auto) 0.9 TH/MM3 0.9 TH/MM3 Basophils # (Auto) 0.1 TH/MM3 0.2 TH/MM3 CBC Comment DIFF FINAL DIFF FINAL Differential Comment Laboratory Tests Test 05/14/16 05/15/16 03:44 05:53 Sodium Level 158 MEQ/L 158 MEQ/L Potassium Level 4.1 MEQ/L 4.0 MEQ/L Chloride Level 125 MEQ/L 124 MEQ/L Carbon Dioxide Level 26.7 MEQ/L 26.2 MEQ/L Anion Gap 6 MEQ/L 8 MEQ/L Blood Urea Nitrogen 42 MG/DL 34 MG/DL Creatinine 1.67 MG/DL 1.59 MG/DL Estimat Glomerular Filtration 46 ML/MIN 48 ML/MIN Rate Random Glucose 138 MG/DL 99 MG/DL Calcium Level 8.0 MG/DL 8.2 MG/DL Phosphorus Level 2.2 MG/DL 3.1 MG/DL Magnesium Level 3.0 MG/DL 2.8 MG/DL Total Bilirubin 0.5 MG/DL 0.6 MG/DL Aspartate Amino Transf 85 U/L 61 U/L (AST/SGOT) Alanine Aminotransferase 70 U/L 67 U/L (ALT/SGPT) Alkaline Phosphatase 114 U/L 107 U/L Total Protein 6.2 GM/DL 6.7 GM/DL Albumin 1.5 GM/DL 1.6 GM/DL Procalcitonin 0.95 ng/mL Microbiology Date/Time Procedure Status Source Growth 05/13/16 19:45 Aerobic Blood Culture - Preliminary Resulted Blood Peripheral NO GROWTH IN 1 DAY 05/13/16 19:45 Anaerobic Blood Culture - Preliminary Resulted Blood Peripheral NO GROWTH IN 1 DAY 05/13/16 19:51 Aerobic Blood Culture - Preliminary Resulted Blood Peripheral NO GROWTH IN 1 DAY 05/13/16 19:51 Anaerobic Blood Culture - Preliminary Resulted Blood Peripheral NO GROWTH IN 1 DAY 05/15/16 08:00 Gram Stain Received Sputum Endotracheal Pending 05/15/16 08:00 Sputum Culture Received Sputum Endotracheal Pending Imaging Chest X-Ray 05/15/16 06 Signed Impressions: Service Date/Time: Sunday, May 15, 2016 05:06 - CONCLUSION: Unchanged bilateral pulmonary infiltrates and small effusions. Nathaniel Dunn Jr., MD Chest X-Ray 05/14/16 06 Signed Impressions: Service Date/Time: Saturday, May 14, 2016 04:03 - CONCLUSION: Stable chest x-ray with bilateral airspace consolidation and suspected pleural effusions. Emerson Serrano MD Last Impressions Chest X-Ray 05/13/16 0600 Signed Impressions: Service Date/Time: Friday, May 13, 2016 03:55 - CONCLUSION: Stable bilateral mid and lower lung zone airspace consolidation with possible small bilateral pleural effusions. Emerson Serrano MD Abdomen X-Ray 05/06/16 0000 Signed Impressions: Service Date/Time: Friday, May 06, 2016 08:11 - CONCLUSION: No evidence of bowel obstruction or ileus.. Kayla Chi MD Head CT 05/05/16 0600 Signed Impressions: Service Date/Time: Thursday, May 05, 2016 04:51 - CONCLUSION: 1. Unchanged exam with areas of parenchymal and subarachnoid hemorrhage and 3 mm of [id number] midline shift. The ventricles remain patent. 2. Right temporal fracture. Nathaniel Dunn Jr., MD Lower Extremity Ultrasound 05/04/16 0000 Signed Impressions: Service Date/Time: April 11:14 - CONCLUSION: 1. Deep venous thrombosis within the right posterior tibial veins. 2. No deep venous thrombosis within the left lower extremity. Jovon Mead MD Pelvis X-Ray 04/28/162156 Signed Impressions: Service Date/Time: Thursday, April 28, 2016 21:44 - CONCLUSION: Negative trauma study. Fidencio Holland MD Chest CT 04/28/162156 Signed Impressions: Service Date/Time: Thursday, April 28, 2016 22:20 - CONCLUSION: 1. Dense consolidation right upper lobe. This could represent aspiration pneumonia and/ or lung contusion. 2. Milder consolidation is present in both posterior medial lung bases with no pneumothorax. Fidencio Holland MD Cervical Spine CT 04/28/162156 Signed Impressions: Service Date/Time: Thursday, April 28, 2016 22:14 - CONCLUSION: Negative trauma CT. Fidencio Holland MD Abdomen/Pelvis CT 04/28/162156 Signed Impressions: Service Date/Time: Thursday, April 28, 2016 22:20 - CONCLUSION: 1. No evidence of visceral injury. 2. Consolidation in both posterior lung bases. Please see chest CT report for further details. Fidencio Holland MD Physical Exam GENERAL: Awake, trackinig, on vent. NAD SKIN: Cool, moist, no generalized rash, has some edema in extremities HEAD: Normocephalic. Previous ICP monitor site is dry, with no redness or drainage EYES: [place] conjunctiva. Pupils equal round and reactive. No scleral icterus. No injection or drainage. ENT: Nose without bleeding, or purulent drainage. He is orally intubated. NECK: S/P trach site ok, supple CARDIOVASCULAR: Regular rate and rhythm without murmurs, gallops, or rubs. RESPIRATORY: Coarse breath sounds bilaterally. Breath sounds equal bilaterally. No wheezes, rales, or rhonchi. Decreased at the bases. GASTROINTESTINAL: Abdomen soft, nondistended, no reaction to palpation. Bowel sounds are present. No hepato-splenomegaly, or palpable masses. MUSCULOSKELETAL: Extremities without clubbing, cyanosis. Has edema hands and feet. No joint effusion, or edema noted. NEUROLOGICAL: Awake, tracking. MOves extremities PSYCH: Unable to assess GENITOURINARY: [place] in place, urine clear LINE: PIV with no evidence of infection. Assessment & Plan Remarks IMPRESSION Possible sepsis, with high fevers, source? - ?New VAP, CXR looks worse especially on R - on Rx for Enterobacter, Citrobacter and MSSA - UA ok - has mildly elevated LFT - ?line, removed yesterday and WBC slightly better, but still with very high fevers - ?central - would expect to stay high temps and not get better and then go up again - ?drug fever TBI from [facility] [place] Respiratory failure DVT RLE RECOMMENDATION Continue Levaquin Dtop Zosyn Continue Vancomycin for now Follow new C/S Monitor temps Follow CBC Monitor progress Vidhya Wells MD May 15, 2016 10:47
[2016-05-15] MEDS: COLLAGENASE OINT 30 GM TUBE TOP SCH (10:48)
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
[2016-05-15] MEDS: LEVOFLOXACIN 750 MG PREMIX INJ 150 ML IV SCH (12:03)
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
[2016-05-15] MEDS: ACETAMINOPHEN 325 MG TAB PO PRN (12:34)
[2016-05-15] MEDS: ENOXAPARIN SODIUM 40 MG/0.4 ML SYRINGE SQ SCH (15:52)
[2016-05-15] MEDS: SODIUM CHLOR 0.45% 1000 ML INJ 1,000 ML IV SCH ×2 (15:52→22:29)
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
[2016-05-16] VITALS (10 sets, daily range): BP systolic 132–147; BP diastolic 72–89; PULSE 90–118; RESP 24–30; TEMP 99–99.9; O2SAT 95–100
[2016-05-16] MEDS ORDERED: VANCOMYCIN INJ 1,600 MG in SODIUM CHLORID 0.9% 500 ML INJ 500 ML IV SCH (03:00)
[2016-05-16] MEDS: FREE WATER G-TUBE SCH ×3 (03:18→11:58)
[2016-05-16] MEDS: CHLORHEXIDINE GLUCONATE 2 % 1 PACK (2 CLOTHS) TOP SCH (03:18)
[2016-05-16 04:29] LABS: AUTOMATED NEUTROPHIL # 8.6 TH/MM3 (1.8-7.7); BASOPHIL # 0.1 TH/MM3 (0-0.2); EOSINOPHIL # 0.6 TH/MM3 (0-0.4); EOSINOPHIL % 4.8 % (0.0-4.0); HEMATOCRIT 25.7 % (39.0-51.0); LYMPHOCYTE # 1.7 TH/MM3 (1.0-4.8); MEAN CORPUSCULAR HEMOGLOBIN 26.7 PG (27.0-34.0); MEAN CORPUSCULAR HGB CONC 32.2 % (32.0-36.0); MONO % 7.3 % (0.0-8.0); NEUT % 72.9 % (16.0-70.0); PLATELET COUNT 395 TH/MM3 (150-450); RED BLOOD COUNT 3.09 MIL/MM3 (4.50-5.90); RED CELL DISTRIBUTION WIDTH 15.6 % (11.6-17.2); WHITE BLOOD COUNT 11.8 TH/MM3 (4.0-11.0)
[2016-05-16 04:33] LABS: HEMO FLAGS AUTO DIFF
--- NOTE | 2016-05-16 04:38 | RADRPT ---
EXAM DATE/TIME: 05/16/2016 02:51 [facility] COMPARISON: CHEST SINGLE AP, May 15, 2016, 5:06. INDICATIONS : Short of breath. MEDICAL HISTORY : None. SURGICAL HISTORY : Tracheostomy. ENCOUNTER: Subsequent ACUITY: 2 weeks PAIN SCORE: Non-responsive. LOCATION: Bilateral chest FINDINGS: A single portable frontal view the chest shows no change from the prior study. Bilateral pleural effu sions and bilateral pulmonary infiltrates remain. Heart is mildly enlarged. Tracheostomy tube noted. CONCLUSION: Unchanged bilateral pleural effusions and bilateral pulmonary infiltrates. Nathaniel Dunn Jr., MD on May 16, 2016 at 4:36 Board Certified Radiologist. This report was verified electronically.
[2016-05-16 04:56] LABS: ALKALINE PHOSPHATASE 89 U/L (45-117); ALT (GPT) 55 U/L (12-78); ANION GAP 10 MEQ/L (5-15); AST (GOT) 50 U/L (15-37); BICARBONATE 26.5 MEQ/L (21.0-32.0); BLOOD UREA NITROGEN 30 MG/DL (7-18); CHLORIDE 121 MEQ/L (98-107); GLOMERULAR FILTRATION RATE 57 ML/MIN (>89); MAGNESIUM 2.6 MG/DL (1.5-2.5); POTASSIUM 3.6 MEQ/L (3.5-5.1); TOTAL BILIRUBIN ADULT 0.5 MG/DL (0.2-1.0)
[2016-05-16 04:59] LABS: SODIUM (NA) 157 MEQ/L (136-145)
[2016-05-16] MEDS: ARTIFICIAL TEARS OPTH SOLN 15 ML BTL EACH EYE SCH ×2 (05:16→14:00)
[2016-05-16] MEDS: SODIUM CHLOR 0.45% 1000 ML INJ 1,000 ML IV SCH (05:16)
[2016-05-16] MEDS: INSULIN NovoLIN REGULAR SUPPLEMENTAL SCALE SQ SCH ×2 (05:17→11:00)
[2016-05-16 06:48] LABS: BANDS 18 % (0-6); EOSINOPHILS 4 % (0-4); NEUTROPHIL # MANUAL DIFF 10.4 TH/MM3 (1.8-7.7); POLYS (SEG NEUTROPHILS) 70 % (16-70); WBC DIFF SAMPLE 100
[2016-05-16 06:49] LABS: PLATELET ESTIMATE SMEAR HIGH (NORMAL); PLATELET MORPHOLOGY ENLARGED (NORMAL); SCAN/DIFF FINAL DIFF MANUAL
[2016-05-16] MEDS: CHLORHEXIDINE 0.12% (ORAL KIT) 15 ML CUP MT SCH (08:00)
[2016-05-16] MEDS: PANTOPRAZOLE SODIUM 40 MG VIAL IV SCH (08:22)
[2016-05-16] MEDS: RESP: ALBUTEROL 2.5 MG/IPRATROPIUM 0.5 MG NEB (SCH) NEB (08:56)
[2016-05-16] MEDS: PROPRANOLOL HCL 40 MG TAB PO SCH (09:00)
[2016-05-16] MEDS: COLLAGENASE OINT 30 GM TUBE TOP SCH (09:00)
[2016-05-16] MEDS: POLYETHYLENE GLYCOL 17 GM PKG PO SCH (09:00)
[2016-05-16] MEDS: DOCUSATE SODIUM 50 MG/SENNA 8.6 MG TAB PO SCH (09:00)
[2016-05-16] MEDS: BISACODYL 10 MG SUPP RECTAL SCH (09:00)
[2016-05-16] MEDS: SODIUM CHLORIDE 0.9% FLUSH 5 ML FLUSH IV FLUSH SCH (09:00)
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
--- NOTE | 2016-05-16 11:56 | MP ---
cc: ONEYDA GONZÁLES MD DATE OF SURGERY: 05/11/2016 PREOPERATIVE DIAGNOSIS Traumatic brain injury, respiratory failure. POSTOPERATIVE DIAGNOSIS Traumatic brain injury, respiratory failure. OPERATIVE PROCEDURE Blue Rhino tracheostomy. SURGEON Brenda ANESTHESIA General. ESTIMATED BLOOD LOSS 5 cc. DETAILS OF PROCEDURE The patient was prepped and draped in the usual fashion. A vertical neck incision is made and deepened down to the level of the strap muscles. Overlying the strap muscles is superficial fascia and over that are two anterior jugular veins which are very large. There is a communicating vein between them measuring about 5 mm in diameter. The vein is now isolated with a right angle and then 2-0 silk ties are placed bilaterally, and then vein is transected and retracted laterally. Another smaller vein is found crossing obliquely. This one is ligated and divided. Strap muscles are now retracted laterally and the trachea is exposed. With palpation the position of the second and third ring is determined and then a needle Angiocath is inserted into the trachea under direct vision with bronchoscopy. Through the Angiocath a J-wire is passed distally and then over the J-wire a punch dilator followed by the Blue Rhino are placed. Next, an 8 Shiley cannula is inserted and then the patient is connected to the ventilator. The end-tidal CO2 is checked. The cannula is sutured to the skin with 2-0 Prolene. The patient tolerated the procedure well. Oneyda VICKERS/LILO /4:45 PM /11:49 AM
[2016-05-16] MEDS ORDERED: IPRASOL NEB (11:58)
[2016-05-16] MEDS ORDERED: SENN1TAB PO (11:58)
[2016-05-16] MEDS ORDERED: ENOX40P SQ (11:58)
[2016-05-16] MEDS ORDERED: Artificial Tears Opth Soln EACH EYE (11:58)
[2016-05-16] MEDS ORDERED: POLY17S PO (11:58)
[2016-05-16] MEDS ORDERED: WATE10P G-TUBE (11:58)
[2016-05-16] MEDS ORDERED: COLL30T TOP (11:58)
[2016-05-16] MEDS: LEVOFLOXACIN 750 MG PREMIX INJ 150 ML IV SCH (12:04)
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
--- NOTE | 2016-05-16 13:28 | HHI.IDPN ---
Subjective Subjective Remarks Notes reviewed Temps not as high Nothing new on C/S BP ok On the vent, on CPAP CXR no change in infiltrates He is awake and tracking and focusing PEG on hold for now per GI Antibiotics Levaquin Vanco Lines PIV Past Medical History Reviewed Allergies: Coded Allergies: No Known Allergies (Unverified , 05/01/16) Objective . Vital Signs Date Time Temp Pulse Resp B/P Pulse Ox O2 Delivery O2 Flow Rate FiO2 05/16/16 12:16 100 40 05/16/16 10:00 40 05/16/16 09:52 97 40 05/16/16 09:00 40 05/16/16 08:51 40 05/16/16 08:51 98 40 05/16/16 08:00 40 05/16/16 08:00 99.9 102 30 135/83 99 05/16/16 06:50 96 40 05/16/16 04:00 40 05/16/16 04:00 99.5 90 24 147/89 99 05/16/16 03:52 100 40 05/16/16 00:08 95 40 05/16/16 00:00 40 05/16/16 00:00 99.5 110 24 134/72 95 05/15/16 21:23 100 40 05/15/16 20:00 40 05/15/16 20:00 101.1 108 26 121/71 98 05/15/16 18:00 103 05/15/16 16:57 94 40 05/15/16 16:00 104 05/15/16 16:00 99.4 104 23 128/71 93 05/15/16 16:00 50 05/15/16 14:30 50 05/15/16 14:00 103 05/15/16 05/15/16 05/16/16 15:00 23:00 07:00 Intake Total 1441 ml 825 ml 958 ml Output Total 2825 ml 3400 ml 1500 ml Balance -1384 ml -2575 ml -542 ml Intake IV Total 981 ml 825 ml 958 ml Tube Feeding 0 ml Other 460 ml Output Urine Total 2725 ml 3400 ml 1500 ml Stool Total 100 ml # Bowel Movements 3 3 1 . Laboratory Tests Test 05/15/16 05/16/16 05:53 04:05 White Blood Count 14.4 TH/MM3 11.8 TH/MM3 Red Blood Count 3.23 MIL/MM3 3.09 MIL/MM3 Hemoglobin 8.6 GM/DL 8.3 GM/DL Hematocrit 27.0 % 25.7 % Mean Corpuscular Volume 83.7 FL 83.0 FL Mean Corpuscular Hemoglobin 26.7 PG 26.7 PG Mean Corpuscular Hemoglobin 31.9 % 32.2 % Concent Red Cell Distribution Width 15.8 % 15.6 % Platelet Count 324 TH/MM3 395 TH/MM3 Mean Platelet Volume 9.6 FL 9.5 FL Neutrophils (%) (Auto) 73.8 % 72.9 % Lymphocytes (%) (Auto) 13.0 % 14.0 % Monocytes (%) (Auto) 5.7 % 7.3 % Eosinophils (%) (Auto) 6.2 % 4.8 % Basophils (%) (Auto) 1.3 % 1.0 % Neutrophils # (Auto) 10.6 TH/MM3 8.6 TH/MM3 Lymphocytes # (Auto) 1.9 TH/MM3 1.7 TH/MM3 Monocytes # (Auto) 0.8 TH/MM3 0.9 TH/MM3 Eosinophils # (Auto) 0.9 TH/MM3 0.6 TH/MM3 Basophils # (Auto) 0.2 TH/MM3 0.1 TH/MM3 CBC Comment DIFF FINAL AUTO DIFF Differential Comment FINAL DIFF MANUAL Differential Total Cells 100 Counted Neutrophils % (Manual) 70 % Band Neutrophils % 18 % Lymphocytes % 7 % Monocytes % 1 % Eosinophils % 4 % Neutrophils # (Manual) 10.4 TH/MM3 Platelet Estimate HIGH Platelet Morphology Comment ENLARGED Laboratory Tests Test 05/15/16 05/16/16 05:53 04:05 Sodium Level 158 MEQ/L 157 MEQ/L Potassium Level 4.0 MEQ/L 3.6 MEQ/L Chloride Level 124 MEQ/L 121 MEQ/L Carbon Dioxide Level 26.2 MEQ/L 26.5 MEQ/L Anion Gap 8 MEQ/L 10 MEQ/L Blood Urea Nitrogen 34 MG/DL 30 MG/DL Creatinine 1.59 MG/DL 1.38 MG/DL Estimat Glomerular Filtration 48 ML/MIN 57 ML/MIN Rate Random Glucose 99 MG/DL 110 MG/DL Calcium Level 8.2 MG/DL 8.1 MG/DL Phosphorus Level 3.1 MG/DL 2.6 MG/DL Magnesium Level 2.8 MG/DL 2.6 MG/DL Total Bilirubin 0.6 MG/DL 0.5 MG/DL Aspartate Amino Transf 61 U/L 50 U/L (AST/SGOT) Alanine Aminotransferase 67 U/L 55 U/L (ALT/SGPT) Alkaline Phosphatase 107 U/L 89 U/L Total Protein 6.7 GM/DL 6.8 GM/DL Albumin 1.6 GM/DL 1.7 GM/DL Microbiology Date/Time Procedure Status Source Growth 05/13/16 19:45 Aerobic Blood Culture - Preliminary Resulted Blood Peripheral NO GROWTH IN 3 DAYS 05/13/16 19:45 Anaerobic Blood Culture - Preliminary Resulted Blood Peripheral NO GROWTH IN 3 DAYS 05/13/16 19:51 Aerobic Blood Culture - Preliminary Resulted Blood Peripheral NO GROWTH IN 3 DAYS 05/13/16 19:51 Anaerobic Blood Culture - Preliminary Resulted Blood Peripheral NO GROWTH IN 3 DAYS 05/15/16 08:00 Gram Stain - Final Resulted Sputum Endotracheal 05/15/16 08:00 Sputum Culture - Preliminary Resulted Staphylococcus Aureus Gram Negative [facility] Chest X-Ray 05/16/16 06 Signed Impressions: Service Date/Time: Monday, May 16, 2016 02:51 - CONCLUSION: Unchanged bilateral pleural effusions and bilateral pulmonary infiltrates. Nathaniel Dunn Jr., MD Chest X-Ray 05/15/16 06 Signed Impressions: Service Date/Time: Sunday, May 15, 2016 05:06 - CONCLUSION: Unchanged bilateral pulmonary infiltrates and small effusions. Nathaniel Dunn Jr., MD Chest X-Ray 05/15/16 06 Signed Impressions: Service Date/Time: Sunday, May 15, 2016 05:06 - CONCLUSION: Unchanged bilateral pulmonary infiltrates and small effusions. Nathaniel Dunn Jr., MD Chest X-Ray 05/14/16 06 Signed Impressions: Service Date/Time: Saturday, May 14, 2016 04:03 - CONCLUSION: Stable chest x-ray with bilateral airspace consolidation and suspected pleural effusions. Emerson Serrano MD Last Impressions Chest X-Ray 05/13/16 06 Signed Impressions: Service Date/Time: Friday, May 13, 2016 03:55 - CONCLUSION: Stable bilateral mid and lower lung zone airspace consolidation with possible small bilateral pleural effusions. Emerson Serrnao MD Abdomen X-Ray 05/06/16 0000 Signed Impressions: Service Date/Time: Friday, May 06, 2016 08:11 - CONCLUSION: No evidence of bowel obstruction or ileus.. Kayla Chi MD Head CT 05/05/16 0600 Signed Impressions: Service Date/Time: Thursday, May 05, 2016 04:51 - CONCLUSION: 1. Unchanged exam with areas of parenchymal and subarachnoid hemorrhage and 3 mm of [id number] midline shift. The ventricles remain patent. 2. Right temporal fracture. Nathaniel Dunn Jr., MD Lower Extremity Ultrasound 05/04/16 0000 Signed Impressions: Service Date/Time: April 11:14 - CONCLUSION: 1. Deep venous thrombosis within the right posterior tibial veins. 2. No deep venous thrombosis within the left lower extremity. Jovon Mead MD Pelvis X-Ray 04/28/162156 Signed Impressions: Service Date/Time: Thursday, April 28, 2016 21:44 - CONCLUSION: Negative trauma study. Fidencio Holland MD Chest CT 04/28/162156 Signed Impressions: Service Date/Time: Thursday, April 28, 2016 22:20 - CONCLUSION: 1. Dense consolidation right upper lobe. This could represent aspiration pneumonia and/ or lung contusion. 2. Milder consolidation is present in both posterior medial lung bases with no pneumothorax. Fidencio Holland MD Cervical Spine CT 04/28/162156 Signed Impressions: Service Date/Time: Thursday, April 28, 2016 22:14 - CONCLUSION: Negative trauma CT. Fidencio Holland MD Abdomen/Pelvis CT 04/28/162156 Signed Impressions: Service Date/Time: Thursday, April 28, 2016 22:20 - CONCLUSION: 1. No evidence of visceral injury. 2. Consolidation in both posterior lung bases. Please see chest CT report for further details. Fidencio Holladn MD Physical Exam GENERAL: Awake, interacting, mouthing words, on CPAP, NAD SKIN: Cool, moist, no generalized rash HEAD: Normocephalic. Previous ICP monitor site is dry, with no redness or drainage EYES: [place] conjunctiva. Pupils equal round and reactive. No scleral icterus. No injection or drainage. ENT: Nose without bleeding, or purulent drainage. He is orally intubated. NECK: S/P trach site ok, supple CARDIOVASCULAR: Regular rate and rhythm without murmurs, gallops, or rubs. RESPIRATORY: Coarse breath sounds bilaterally. Breath sounds equal bilaterally. No wheezes, rales, or rhonchi. Decreased at the bases. GASTROINTESTINAL: Abdomen soft, mildly distended, not tender. Bowel sounds are present. No hepato-splenomegaly, or palpable masses. MUSCULOSKELETAL: Extremities without clubbing, cyanosis. Has less edema hands and feet. NEUROLOGICAL: Awake, tracking. Moves extremities PSYCH: calm and cooperative GENITOURINARY: [place] in place, urine clear LINE: PIV with no evidence of infection. Assessment & Plan Remarks IMPRESSION Possible sepsis, with high fevers, source? - ?New VAP, CXR looks worse especially on R - on Rx for Enterobacter, Citrobacter and MSSA - UA ok - has mildly elevated LFT - ?line, removed yesterday and WBC slightly better, but still with very high fevers - ?central - would expect to stay high temps and not get better and then go up again - ?drug fever TBI from [facility] [place] Respiratory failure DVT RLE RECOMMENDATION Continue Levaquin Continue Vancomycin for now Follow new C/S Monitor temps Follow CBC Monitor progress Weaning per CCM Vidhya Wells MD May 16, 2016 13:27
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
[2016-05-16] MEDS: ENOXAPARIN SODIUM 40 MG/0.4 ML SYRINGE SQ SCH (15:01)
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
[2016-05-18] MEDS ORDERED: PHARMACY ORDERED LAB ONE (08:45)
[2016-06-05] MEDS ORDERED: GETGO ROLLING W1 MI1 (15:38)
[2016-06-08] MEDS ORDERED: PROP10TA6 PO (10:30)
== END 2016-05-16 16:15 | DRG 4 ==
LOC: NEPI 21:50 → EDBD 22:12 → NEDA 22:12 → N03B 22:32 → N03A 05-15 18:34
PROVIDERS: ADMIT Surgery Trauma Surgery; ATTEND Surgery Trauma Surgery
PROC: 5A1955Z Respiratory Ventilation, Greater than 96 Consecutive Hours (ICD-10-PCS; 2016-04-28)
PROC: 0BH17EZ Insertion of Endotracheal Airway into Trachea, Via Natural or Artificial Opening (ICD-10-PCS; 2016-04-28)
PROC: 4A103BD Monitoring of Intracranial Pressure, Percutaneous Approach (ICD-10-PCS; principal; 2016-04-29)
PROC: 03HY32Z Insertion of Monitoring Device into Upper Artery, Percutaneous Approach (ICD-10-PCS; 2016-04-29)
PROC: 02HV33Z Insertion of Infusion Device into Superior Vena Cava, Percutaneous Approach (ICD-10-PCS; 2016-04-29)
PROC: 04HY32Z Insertion of Monitoring Device into Lower Artery, Percutaneous Approach (ICD-10-PCS; 2016-05-07)
PROC: 0B113F4 Bypass Trachea to Cutaneous with Tracheostomy Device, Percutaneous Approach (ICD-10-PCS; 2016-05-11)
PROC: 5A1945Z Respiratory Ventilation, 24-96 Consecutive Hours (ICD-10-PCS; 2016-05-11)
PROC: 30233N1 Transfusion of Nonautologous Red Blood Cells into Peripheral Vein, Percutaneous Approach (ICD-10-PCS; 2016-05-15)
DX: S06.6X9A Traumatic subarachnoid hemorrhage with loss of consciousness of unspecified duration, initial encounter (principal); J69.0 Pneumonitis due to inhalation of food and vomit; J15.211 Pneumonia due to Methicillin susceptible Staphylococcus aureus; A41.9 Sepsis, unspecified organism; J15.6 Pneumonia due to other Gram-negative bacteria; J96.01 Acute respiratory failure with hypoxia; E87.0 Hyperosmolality and hypernatremia; I82.441 Acute embolism and thrombosis of right tibial vein; J95.851 Ventilator associated pneumonia; S06.2X9A Diffuse traumatic brain injury with loss of consciousness of unspecified duration, initial encounter; S02.19XA Other fracture of base of skull, initial encounter for closed fracture; S02.0XXA Fracture of vault of skull, initial encounter for closed fracture; S06.1X9A Traumatic cerebral edema with loss of consciousness of unspecified duration, initial encounter; S02.40EA Zygomatic fracture, right side, initial encounter for closed fracture; D64.9 Anemia, unspecified; E83.39 Other disorders of phosphorus metabolism; E87.70 Fluid overload, unspecified; K59.00 Constipation, unspecified; V28.4XXA Motorcycle driver injured in noncollision transport accident in traffic accident, initial encounter; Y92.410 Unspecified street and highway as the place of occurrence of the external cause
CPT/HCPCS: 31500; 36430; 36556; 36600; 61210; 70450; 71010; 71260; 72125; 72170; 74000; 74177; 76937; 80048; 80053; 80202; 81001; 82435; 82565; 82805; 82947; 82948; 83735; 83930; 84100; 84132; 84145; 84295; 84520; 85007; 85025; 85027; 85610; 85730; 86403; 86850; 86900; 86901; 86920; 87040; 87070; 87077; 87086; 87147; 87186; 87205; 87493; 87641; 90471; 93005; 93970; 94002; 94003; 94640; 94664; 94770; 95819; 96374; 96375; 99291; A7521; C9113; C9399; G0390; J0131; J0171; J0461; J0692; J0696; J1200; J1630; J1650; J1940; J1953; J1956; J2185; J2212; J2250; J2370; J2405; J2543; J2765; J3010; J3370; J3475; J3480; J7030; J7040; J7050; L0150; L0172; P9016; Q9967